=== PATIENT | female | born 1955 | race Caucasian/White ===

== ENCOUNTER 2020-07-26 12:53 | Outpatient (AMB) | payer MEDICARE, OTHER, SELFPAY ==
--- NOTE | 2020-07-26 12:58 | AM.OFFVISMDC ---
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 Plumbing Installer Required: No Accompanied by: Self / Same As Patient Allergies bupropion [From Wellbutrin] Allergy (Mild, Verified 03/05/23 15:01) Stomach Upset peanut Allergy (Mild, Verified 03/05/23 15:01) Nasal congestion Sulfa (Sulfonamide Antibiotics) [SULFA(SULFONAMIDE ANTIBIOTICS)] Allergy (Unknown, Verified 03/05/23 15:01) PETICHIA, petecchiae Dairy Allergy (Mild, Uncoded 03/05/23 15:) Abdominal Pain mushroom , wine Allergy (Unknown, Uncoded 03/05/23 15:) Unknown Medication List - Last Reconciled 07/26/20 by Nehemias Gonzáles MD [id number] 50-325-40 mg 1 tab PO Q4-6H 30 days PRN citalopram 10 mg PO DAILY fluticasone propionate 50 mcg/actuation 1 spray intranasal DAILY levothyroxine 50 mcg PO DAILY 90 days lisinopril 10 mg PO DAILY loratadine (Claritin) 10 mg PO DAILY omeprazole 20 mg PO DAILY 90 days simvastatin 5 mg PO BEDTIME HPI AWV G0438 05/23/2020 HPI Details Patient comes in today for her Medicare Annual Wellness Exam IPPE/AWV: c/o of Annual Wellness Visit, initial visit. Medical / Social History Reviewed Past Medical History Yes . [place] of Care / Care Team list updated Yes . Surgical/Hospitalization History Yes . Current Medications (including OTC and supplements) Yes . Family History Yes . Tobacco Control form Yes . AUDIT-C (Alcohol use) form Yes . Illicit drug use in Social History Yes . Current diagnosis of depression? No Appropriate PHQ2/PHQ9 completed Yes . Data entered by Biology Professor and reviewed by provider Home Safety Throw rugs? No Grab bars? No Raised toilet seats? No Working smoke detectors? Yes Working carbon monoxide detectors? Yes Data entered by Biology Professor and reviewed by provider Activities of Daily Living (ADLs) Difficulty bathing or showering? No Difficulty dressing? No Difficulty using the toilet? No Difficulty getting in and out of bed? No Difficulty walking? No Receives help from another person with any of the above tasks? No Instrumental Activities of Daily Living (IADLs) Uses the telephone without help Gets to places out of walking distance without help Goes shopping for groceries without help Prepares own meals without help Does own minor home maintenance without help Does own laundry without help Does own housework without help Manages own money without help Currently takes medications? Yes Takes medication without help End-of-Life Planning Discussed advance directive Yes Advance directive on file Discussed wishes expressed in advance directive agreed to following patient's wishes Fall Risk: Fall History Have you had any falls with injury in the past year? No . Have you had two or more falls in the past year? No . Fall Risk Assessment: No falls in the past year . HRA filled out by the patient, reviewed by Provider and scanned. [facility] Medical History Basal cell carcinoma of left side of nose Headache Obesity (BMI 30-39.9) Depression Anxiety GERD without esophagitis Allergic rhinitis Impaired fasting glucose Migraine Acquired hypothyroidism Benign essential hypertension Pure hypercholesterolemia Surgical History History of surgery History of eye surgery Hx of mastoidectomy History of cataract surgery History of carpal tunnel release History of open reduction and internal fixation (ORIF) procedure Family History Father CVD (cardiovascular disease) Mother Esophageal cancer Daughter In good health Social History Housing: House Alcohol intake: never Patient Tobacco Use Status: Former Tobacco user Second Hand Smoke Exposure: Yes service: No Current occupational status: retired Cognitive needs: No Hearing needs: Yes Vision needs: Yes Questionnaire PHQ-9 Over the last 2 weeks, how often have you been bothered by any of the following problems? 1. Little interest or pleasure in doing things: not at all 2. Feeling down, depressed, or hopeless: several days 3. Trouble falling or staying asleep, or sleeping too much: more than half the days 4. Feeling tired or having little energy: more than half the days 5. Poor appetite or overeating: not at all 6. Feeling bad about yourself - or that you are a failure or have let yourself or your family down: several days 7. Trouble concentrating on things, such as reading the newspaper or watching television: not at all 8. Moving or speaking so slowly that other people could have noticed. Or the opposite - being so fidgety or restless that you have been moving around a lot more than usual: several days 9. Thoughts that you would be better off or of hurting yourself in some way: not at all Total score: 7 10. If you checked off any problems, how difficult have those problems made it for you to do your work, take care of things at home, or get along with other people?: not difficult at all 0-4 None-Minimal, 5-9 Mild, 10-14 Moderate, 15-19 Moderately Severe, 20-27 Severe Source: Developed by Drs. Iban Cui, Tere Dorsey, Monster Morrison and colleagues, with an educational bud from [employer]. Medicare Wellness Checkup [age] 65-69 What gender do you identify with?: female During the past 4 weeks, how much have you been bothered by emotional problems such as feeling anxious, depressed, irritable, sad or downhearted, and blue?: moderately During the past 4 weeks, has your physical & emotional health limited your social activities with family, friends, neighbors, or groups?: not at all During the past 4 weeks, how much bodily pain have you generally had?: mild pain During the past 4 weeks, was someone available to help you if you needed & wanted help?: yes, as much as I wanted During the past 4 weeks, what was the hardest physical activity you could do for at least 2 minutes?: heavy Can you get to places out of walking distance without help? (For eg., can you travel alone on buses, taxis or drive your car?): Yes Can you go shopping for groceries or clothes without someone's help?: Yes Can you prepare your own meals?: Yes Can you do your housework without help?: Yes Because of any health problems, do you need the help of another person with your personal care needs such as eating, bathing, dressing or getting around the house?: No Can you handle your own money without help?: Yes During the past 4 weeks, how would you rate your health in general?: fair During the past 4 weeks how have things been going for you?: pretty bad (because of her current headaches) Are you having difficulties driving your car?: no Do you always fasten your seat belt when you are in a car?: yes, usually During past 4 weeks, have you been bothered by the following: never: Falling or dizzy when standing up, Sexual problems?, Trouble eating well? and Problems using the telephone?, sometimes: Teeth or denture problems? and often: Tiredness or fatigue? Have you fallen 2 or more times in the past year?: No Are you afraid of falling?: Yes Are you a smoker?: no During the past 4 weeks, how many drinks of wine, beer, or other alcoholic beverages did you have?: no alcohol at all Do you exercise for about 20 minutes 3 or more times a week?: yes, most of the time Have you been given information to help with the following?: no: Hazards in your house that might hurt you? and no: Keeping track of your medications? How often do you have trouble taking medicines the way you have been told to take them?: I always take medicine as prescribed How confident are you that you can control & manage most of your health problems?: somewhat confident What is your race?: White Mini Mental State Exam (MMSE) Orientation What is the (year) (season) (date) (day) (month)?: year, season, date, day and month Where are we (state) (county) (town or city) (hospital) (floor)?: state, county, town or city, hospital/clinic and floor Registration Name of 3 unrelated objects clearly and slowly, then ask patient to repeat all 3 of them. (1st repeat determines score. Make sure they can repeat all three): object 1, object 2 and object 3 Attention & Calculation (CHOOSE ONE) Ask pt to begin with 100 & count backward by 7. Stop after 5 repeats. If pt cannot ask them to spell the word WORLD backward.: 93, 86, 79, 72 and 65 Recall Ask patient to repeat the 3 items from question #3.: object 1, object 2 and object 3 Language Show patient a wristwatch & ask what it is. Repeat for pencil.: watch and pencil Ask the patient to repeat the phrase 'No ifs, ands, or buts' after you.: correct Ask the patient to 'take a piece of paper with their right hand' 'fold paper in half' 'place paper on floor': take paper in right hand, fold paper in half and place paper on floor Print the sentence 'CLOSE YOUR EYES' on a piece. If patient actually closes eyes then score.: followed written direction Give patient a blank piece of paper & ask to write a sentence. Score if it contains a noun & verb.: sentence contains subject and verb Ask patient to copy figure of intersecting pentagons exactly. Score if all 10 angles & 2 intersects are included.: all 10 angles present & 2 are intersected Score Score: 30 Activity of Daily Living Bathing - sponge bath, tub bath or shower: receives no assistance (gets in/out by self, if usual bathing means Dressing - getting clothes from closets & drawers, including inner/outer garments & fasteners.: gets clothes & gets completely dressed without help Toileting - going to the 'toilet room' for urine/bowel elimination & cleaning self/arranging clothes: goes to toilet room, cleans self, arranges clothes without help Transfer: moves in & out of bed and chair without help (may use support object) Continence: controls urination/bowel movements completely by self Feeding: feeds self without help Total Score: 0 Information obtained from: patient Using telephone: independent Traveling: independent Shopping: independent Preparing meals: independent Housework: independent Taking medicine: independent Managing money: independent AUDIT C Alcohol Use Questionnaire (AUDIT-C) 1. How often do you have a drink containing alcohol?: Never 3. How often do you have six or more drinks on one occasion?: Never Total Score: 0 Score Reviewed/Action Taken: Yes Thrive Questionnaire Thrive Questionnaire I am a:: Patient What is your living situation today?: I have a steady place to live Within the past 12 months, the food you bought just didn't last and you didn't have the money to get more.: Never true Within the past 12 months, you worried whether your food would run out before you got money to buy more.: Never true Do you have trouble paying for medicines?: No Do you have trouble getting transportation to medical appointments?: No Do you have trouble paying your heating and electricity bill?: No Do you have trouble taking care of your child, family member or friend?: No Do you have trouble with day-to-day activities such as bathing, preparing meals, shopping, managing finances, etc.?: No Are you currently unemployed and looking for a job?: No Are you interested in more education?: No Review of Systems Const Denies chills, Reports fatigue, Denies fever(s) and Reports headache(s) (occuring daily lately) ENT Denies dysphagia, Denies dizziness, Denies otalgia, Reports headache(s) (occuring daily lately), Denies odynophagia and Denies sore throat Card Denies chest pain, Denies palpitations and Denies dyspnea Resp Denies cough and Denies dyspnea GI Denies abdominal pain, Denies constipation, Denies dysphagia, Denies heartburn, Denies diarrhea, Denies nausea, Denies odynophagia and Denies vomiting Denies difficulty voiding, Denies nocturia and Denies dysuria Neuro Denies dizziness and Reports headache(s) (occuring daily lately) Endo Reports fatigue and Denies palpitations Physical Exam Vital Signs: Last Vital Signs Temp 97.2 F 07/26/20 12:59 Pulse 70 07/26/20 12:59 BP 140/80 H 07/26/20 12:59 Pulse Ox 98 07/26/20 12:59 Oxygen Delivery Method Room Air 07/26/20 12:59 BMI result Body Mass Index 35.2 IPPE/AWV: Balance Romberg Yes . Tandem walk Yes . Walk and Turn Yes . Rise from sit to stand Yes . Vision Corrective lens No Vision screen pass Hearing Whisper test pass . Urinary incont. no. EKG Not clinically necessary. Assessment & Plan Assessment & Plan (1) Encounter for Medicare annual wellness exam: Code(s): Z00.00 - Encounter for general adult medical examination without abnormal findings Patient Instructions: HRA form completed and discussed with patient; form will be scanned into patient's chart (2) Headache: Code(s): R51.9 - Headache, unspecified Qualifiers: Headache type: new daily persistent Qualified Code(s): G44.52 - New daily persistent headache (NDPH) Plan - Nehemias Gonzáles MD: Likely migraine headaches Will refer to neurology for further evaluation and management Orders: Referrals Neurology Referral Patient Instructions: Follow up as scheduled in October 2020 Quality Reporting (2019) Depression/Bipolar (159/160/161/177) PHQ-9: Total score: 7 Coding Level of Care Code Medicare First (G0438) Est Pt Level 3 (98091) Diagnoses Encounter for Medicare annual wellness exam Z00.00 New daily persistent headache G44.52 Headache type: new daily persistent
[2020-07-26 12:59] VITALS: BP 140/80; PULSE 70; TEMP 36.2; O2SAT 98; BMI 35.2
== END 2020-07-26 14:37 | disposition home or self-care (01) ==
LOC: HO.HMGH 12:53
PROVIDERS: PCP Internal Medicine; Visit Provider Internal Medicine
DX: Z00.00 Encounter for general adult medical examination without abnormal findings (principal); G44.52 New daily persistent headache (NDPH)
CPT/HCPCS: G0438

== ENCOUNTER 2020-08-31 14:50 | Outpatient (REF) | payer MEDICARE, OTHER, SELFPAY ==
[2020-08-31 16:04] LABS: Erythrocyte Sedimentation Rate 14 MM/HR (0-20)
[2020-08-31 16:06] LABS: Syphilis Screen Nonreactive (Nonreactive)
[2020-09-01 05:17] LABS: Lyme Abs Screen <0.90 index
[2020-09-01 13:46] LABS: Anti Nuclear Antibody Screen NEGATIVE (NEGATIVE)
== END 2020-08-31 14:51 | disposition home or self-care (01) ==
LOC: HO.LAB 14:50
PROVIDERS: PCP Internal Medicine; Visit Provider Psychiatry & Neurology Neurology
DX: G44.229 Chronic tension-type headache, not intractable (principal)
CPT/HCPCS: 36415; 85652; 86038; 86039; 86617; 86618; 86780

== ENCOUNTER 2020-11-30 07:18 | Outpatient (REF) | payer MEDICARE, OTHER, SELFPAY ==
--- NOTE | ~2020-11-30 | MR_ITS ---
MRI OF THE BRAIN WITHOUT IV CONTRAST INDICATION: Chronic tension-type headache. COMPARISON: None available. TECHNIQUE: Multiplanar multisequence MR imaging of the brain was obtained without IV contrast. FINDINGS: There is no hydrocephalus, extra-axial surface collection, or herniation. Mild chronic microangiopathy. The major flow voids at the skull base are preserved. There is no acute infarct on diffusion-weighted imaging. There is no intracranial hemorrhage on the gradient recalled echo acquisition. The midline structures are normal. The cerebellar tonsils are normally positioned. The cerebellum and brainstem are normal. The craniocervical junction is normal. Osseous marrow signal intensity is homogenous. The visualized soft tissues are unremarkable. There is a 2.6 cm retention cyst within the left maxillary sinus. Moderate to large left mastoid effusion. Small right mastoid effusion. MR/MR head/brain wo con IMPRESSION: - No acute intracranial findings. - Mild chronic microangiopathy. - There is a 2.6 cm retention cyst within the left maxillary sinus. Small fluid level within the left sphenoid sinus. - Moderate to large left mastoid effusion. Small right mastoid effusion.
== END 2020-11-30 07:19 | disposition home or self-care (01) ==
LOC: HO.MRI 07:18
PROVIDERS: PCP Internal Medicine; Visit Provider Psychiatry & Neurology Neurology
DX: G44.229 Chronic tension-type headache, not intractable (principal)
CPT/HCPCS: 70551

== ENCOUNTER 2021-04-18 10:39 | Outpatient (REF) | payer MEDICARE, OTHER, SELFPAY ==
[2021-04-18 11:02] LABS: MANUAL DIFF FLAG NO
[2021-04-18 11:29] LABS: Appearance Urine CLEAR; Color Urine YELLOW; Glucose Urine UA NEG (NEG); Leukocyte Esterase Urine NEG (NEG); Nitrite Urine NEG (NEG); Specific Gravity - Urine >= 1.030 (1.005-1.025); Urine Blood NEG (NEG); Urine Ketones NEG (NEG); Urine Protein NEG (NEG-TRACE)
[2021-04-18 11:33] LABS: Basophils Percent Auto 0.4 % (0-2); Eosinophils Absolute Auto 0.2 X10*3/uL (0.0-0.4); Eosinophils Percent Auto 2.5 % (0-4); Hematocrit 44.7 % (37.0-47.0); Hemoglobin 14.1 g/dl (12.0-16.0); Imm Gran Abs Auto 0.02 X10*3/uL (0.00-0.03); Imm Gran Pct Auto 0.3 % (0.0-0.4); Lymphocytes Absolute Auto 2.1 X10*3/uL (1.2-4.9); Lymphocytes Percent Auto 31.9 % (20-40); Mean Corpuscular HGB Conc 31.5 g/dl (31.0-35.0); Mean Corpuscular Volume 91.8 fL (80.0-98.0); Mean Platelet Volume 12.2 fL (9.4-12.3); Monocytes Absolute Auto 0.5 X10*3/uL (0.1-1.2); Monocytes Percent Auto 6.7 % (2-11); Neutrophils Absolute Auto 3.9 x10*3/uL (2.0-8.3); Neutrophils Percent Auto 58.2 % (45-73); Platelet Count 245 X10*3/uL (160-400); Red Blood Count 4.87 X10*6/uL (4.20-5.50); Red Cell Distribution Width 13.2 % (11.0-16.0); White Blood Count 6.7 X10*3/uL (4.8-10.8)
[2021-04-18 12:07] LABS: Alanine Aminotransferase 28 U/L (0-31); Albumin Level 4.3 g/dL (3.5-5.0); Alkaline Phosphatase 71 U/L (39-117); Anion Gap 11 (12-20); Aspartate Amino Transferase 27 U/L (5-31); Bilirubin Total 0.7 mg/dL (0.0-1.0); Blood Urea Nitrogen 18 mg/dL (9-16); Calcium 9.6 mg/dL (8.4-10.2); Carbon Dioxide 26 mmol/L (22-29); Chloride 109 mmol/L (96-108); Cholesterol 214 mg/dL; Estimated Glomerular Filt Rate 57; Glucose Fasting 99 mg/dL (60-99); HDL Cholesterol 52 mg/dL; LDL Cholesterol Calculated 136 mg/dl; Potassium 4.4 mmol/L (3.3-5.1); Sodium 142 mmol/L (135-145); Total Protein 7.5 g/dL (6.5-8.0); Triglycerides 134 mg/dL
[2021-04-18 12:28] LABS: Free T4 (Free Thyroxine) 0.93 ng/dL (0.71-1.85); Thyroid Stimulating Hormone 2.87 uIU/mL (0.32-4.0); Vitamin D 25-OH Total 26.9 ng/mL (>30)
== END 2021-04-18 10:40 | disposition home or self-care (01) ==
LOC: HO.LAB 10:39
PROVIDERS: PCP Internal Medicine; Visit Provider Internal Medicine
DX: I10 Essential (primary) hypertension (principal); E78.00 Pure hypercholesterolemia, unspecified; E03.9 Hypothyroidism, unspecified; E55.9 Vitamin D deficiency, unspecified
CPT/HCPCS: 36415; 80053; 80061; 81003; 82306; 84439; 84443; 85025

== ENCOUNTER 2021-07-10 07:25 | Outpatient (REF) | payer MEDICARE, OTHER, SELFPAY ==
--- NOTE | ~2021-07-10 | CT_ITS ---
EXAMINATION: CT SINUS WITHOUT CONTRAST CLINICAL INFORMATION: Nasal polyps, deviated septum. COMPARISON: MRI brain 11/30/2020 TECHNIQUE: Axial 2 mm thin and reformatted 2 mm thin sagittal and coronal images of sinuses were obtained without contrast. This CT examination was performed using dose optimization techniques as appropriate, variously including the following: *Automated exposure control *Adjustment of mA and/or kV according to patient size (this includes techniques or standardized protocols for targeted exams where dose is matched to indication/reason for exam; i.e. extremities or head) *Use of iterative reconstruction technique DLP: 88 mGy-cm FINDINGS: FRONTAL SINUSES AND DRAINAGE PATHWAYS: There is mild mucoperiosteal thickening of bilateral frontal sinuses. The right frontal sinus and the drainage pathway are widely patent. MAXILLARY SINUSES AND DRAINAGE PATHWAYS: There is a moderate sized polyp or retention cyst on the floor of the left maxillary sinus. The right sinus is well expanded and clear. There is mild mucoperiosteal thickening of the left ostiomeatal complex but patent. The right ostiomeatal complex is patent, as well. ETHMOID SINUSES: Normal. The ethmoid roofs are symmetric, with olfactory fossa depth of 0.5 on the right and 0.6 on the left. SPHENOID SINUSES AND DRAINAGE PATHWAYS: Normal. The sphenoid ostia are patent. The carotid canals are covered by bone. NASAL CAVITY/NASOPHARYNX: The nasal cavity is clear. There is no nasal septal deviation/spurring. The nasopharynx is symmetric. ADDITIONAL RELEVANT FINDINGS: No periapical disease is seen. The TMJs articulate normally. The orbits and skull base soft tissues are unremarkable. There are postsurgical changes left middle ear with absent scutum and tympanic membrane. There is a soft tissue density in the left middle ear, likely cholesteatoma. The middle ear ossicles are absent. There is near-complete opacification of bilateral mastoid sinuses. Partial resection of the left mastoid sinus is noted. Limited evaluation demonstrates no acute intracranial findings. CT/CT sinus wo con IMPRESSION: Moderate-sized polyp left maxillary sinus. Mild chronic mucoperiosteal thickening bilateral frontal sinuses. Partial left mastoidectomy with resection of scutum, the tympanic membrane and middle ear ossicles. There is soft tissue density in the left middle ear, likely cholesteatoma, question recurrent. There is bilateral mastoiditis.
== END 2021-07-10 07:26 | disposition home or self-care (01) ==
LOC: HO.CT 07:25
PROVIDERS: Visit Provider Otolaryngology
DX: J34.2 Deviated nasal septum (principal); J33.9 Nasal polyp, unspecified
CPT/HCPCS: 70486

== ENCOUNTER 2021-12-27 09:08 | Outpatient (REF) | payer MEDICARE, OTHER, SELFPAY ==
[2021-12-27 09:23] LABS: MANUAL DIFF FLAG NO
[2021-12-27 09:34] LABS: Basophils Percent Auto 0.4 % (0-2); Eosinophils Absolute Auto 0.1 X10*3/uL (0.0-0.4); Hematocrit 44.2 % (37.0-47.0); Hemoglobin 14.3 g/dl (12.0-16.0); Imm Gran Abs Auto 0.02 X10*3/uL (0.00-0.03); Imm Gran Pct Auto 0.3 % (0.0-0.4); Lymphocytes Absolute Auto 2.4 X10*3/uL (1.2-4.9); Lymphocytes Percent Auto 34.3 % (20-40); Mean Corpuscular HGB Conc 32.4 g/dl (31.0-35.0); Mean Corpuscular Hemoglobin 29.5 pg (27.0-33.0); Mean Corpuscular Volume 91.3 fL (80.0-98.0); Mean Platelet Volume 11.6 fL (9.4-12.3); Monocytes Absolute Auto 0.4 X10*3/uL (0.1-1.2); Monocytes Percent Auto 5.5 % (2-11); Neutrophils Absolute Auto 3.9 x10*3/uL (2.0-8.3); Neutrophils Percent Auto 57.5 % (45-73); Platelet Count 227 X10*3/uL (160-400); Red Blood Count 4.84 X10*6/uL (4.20-5.50); Red Cell Distribution Width 13.2 % (11.0-16.0); White Blood Count 6.9 X10*3/uL (4.8-10.8)
[2021-12-27 09:42] LABS: Estimated Average Glucose 105 mg/dL; Hemoglobin A1c % 5.3 %
[2021-12-27 09:49] LABS: Appearance Urine Clear; Color Urine Yellow; Glucose Urine UA Negative (Negative); Leukocyte Esterase Urine Moderate (2+) (Negative); Nitrite Urine Negative (Negative); PH 7.5 (5.0-9.0); Urine Blood Negative (Negative); Urine Ketones Negative (Negative); Urine Protein Negative (Neg-Trace)
[2021-12-27 10:12] LABS: Alanine Aminotransferase 22 U/L (0-31); Albumin Level 4.3 g/dL (3.5-5.0); Alkaline Phosphatase 57 U/L (39-117); Anion Gap 14 (12-20); Aspartate Amino Transferase 24 U/L (5-31); Bilirubin Total 0.7 mg/dL (0.0-1.0); Blood Urea Nitrogen 19 mg/dL (9-16); Calcium 9.2 mg/dL (8.4-10.2); Carbon Dioxide 24 mmol/L (22-29); Chloride 107 mmol/L (96-108); Cholesterol 198 mg/dL; Estimated Glomerular Filt Rate 53; Glucose Fasting 109 mg/dL (60-99); HDL Cholesterol 49 mg/dL; LDL Cholesterol Calculated 115 mg/dl; Potassium 4.4 mmol/L (3.3-5.1); Sodium 141 mmol/L (135-145); Total Protein 7.5 g/dL (6.5-8.0); Triglycerides 170 mg/dL
[2021-12-27 10:22] LABS: Free T4 (Free Thyroxine) 1.05 ng/dL (0.71-1.85); Thyroid Stimulating Hormone 5.59 uIU/mL (0.32-4.0); Vitamin D 25-OH Total 32.9 ng/mL (>30)
[2021-12-27 11:54] LABS: Bacteria Urine None Seen (None Seen); Hyaline Casts Urine 0-2 /LPF (0-2); RBC Urine 0-2 /HPF (0-2); Squamous Epithelial Cell Urine 0-2 /HPF (0-2)
== END 2021-12-27 09:09 | disposition home or self-care (01) ==
LOC: HO.LAB 09:08
PROVIDERS: PCP Internal Medicine; Visit Provider Internal Medicine
DX: R73.01 Impaired fasting glucose (principal); E03.9 Hypothyroidism, unspecified; E78.00 Pure hypercholesterolemia, unspecified; E55.9 Vitamin D deficiency, unspecified; I10 Essential (primary) hypertension
CPT/HCPCS: 36415; 80053; 80061; 81001; 82306; 83036; 84439; 84443; 85025

== ENCOUNTER 2022-06-04 08:45 | Outpatient (REF) | payer MEDICARE, OTHER, SELFPAY ==
[2022-06-04 09:12] LABS: MANUAL DIFF FLAG NO
[2022-06-04 09:29] LABS: Basophils Percent Auto 0.5 % (0-2); Eosinophils Absolute Auto 0.2 X10*3/uL (0.0-0.4); Eosinophils Percent Auto 2.9 % (0-4); Hematocrit 45.3 % (37.0-47.0); Hemoglobin 14.5 g/dl (12.0-16.0); Imm Gran Abs Auto 0.02 X10*3/uL (0.00-0.03); Imm Gran Pct Auto 0.3 % (0.0-0.4); Lymphocytes Absolute Auto 2.2 X10*3/uL (1.2-4.9); Lymphocytes Percent Auto 33.6 % (20-40); Mean Corpuscular Hemoglobin 29.1 pg (27.0-33.0); Mean Platelet Volume 12.3 fL (9.4-12.3); Monocytes Absolute Auto 0.4 X10*3/uL (0.1-1.2); Monocytes Percent Auto 5.9 % (2-11); Neutrophils Absolute Auto 3.8 x10*3/uL (2.0-8.3); Neutrophils Percent Auto 56.8 % (45-73); Platelet Count 219 X10*3/uL (160-400); Red Blood Count 4.98 X10*6/uL (4.20-5.50); Red Cell Distribution Width 13.3 % (11.0-16.0); White Blood Count 6.6 X10*3/uL (4.8-10.8)
[2022-06-04 09:34] LABS: Appearance Urine Clear; Color Urine Yellow; Glucose Urine UA Negative (Negative); Leukocyte Esterase Urine Trace (Negative); Nitrite Urine Negative (Negative); Specific Gravity - Urine 1.015 (1.005-1.025); UMIC TRIGGER UACC YES; Urine Blood Negative (Negative); Urine Ketones Negative (Negative); Urine Protein Negative (Neg-Trace)
[2022-06-04 09:37] LABS: Bacteria Urine None Seen (None Seen); Hyaline Casts Urine 0-2 /LPF (0-2); RBC Urine 0-2 /HPF (0-2); Squamous Epithelial Cell Urine 0-2 /HPF (0-2); WBC Urine 0-5 /HPF (0-5)
[2022-06-04 10:13] LABS: Alanine Aminotransferase 20 U/L (0-31); Albumin Level 4.4 g/dL (3.5-5.0); Alkaline Phosphatase 62 U/L (39-117); Anion Gap 15 (12-20); Aspartate Amino Transferase 20 U/L (5-31); Blood Urea Nitrogen 19 mg/dL (9-16); Calcium 9.5 mg/dL (8.4-10.2); Carbon Dioxide 24 mmol/L (22-29); Chloride 107 mmol/L (96-108); Cholesterol 215 mg/dL; Estimated Glomerular Filt Rate 54; Glucose Fasting 106 mg/dL (60-99); HDL Cholesterol 60 mg/dL; LDL Cholesterol Calculated 129 mg/dl; Potassium 4.2 mmol/L (3.3-5.1); Sodium 142 mmol/L (135-145); Total Protein 7.3 g/dL (6.5-8.0); Triglycerides 133 mg/dL
[2022-06-04 10:21] LABS: Free T4 (Free Thyroxine) 0.91 ng/dL (0.71-1.85); Thyroid Stimulating Hormone 3.42 uIU/mL (0.32-4.0); Vitamin D 25-OH Total 28.6 ng/mL (>30)
== END 2022-06-04 08:46 | disposition home or self-care (01) ==
LOC: HO.LAB 08:45
PROVIDERS: PCP Internal Medicine; Visit Provider Internal Medicine
DX: I10 Essential (primary) hypertension (principal); E78.00 Pure hypercholesterolemia, unspecified; E55.9 Vitamin D deficiency, unspecified; E03.9 Hypothyroidism, unspecified
CPT/HCPCS: 36415; 80053; 80061; 81001; 82306; 84439; 84443; 85025

== ENCOUNTER 2022-10-24 08:14 | Outpatient (REF) | payer MEDICARE, OTHER, SELFPAY | END 2022-10-24 08:15 | disposition home or self-care (01) | LOC: HO.LAB 08:14 | PROVIDERS: PCP Internal Medicine; Visit Provider Nurse Practitioner Family | DX: E03.9 Hypothyroidism, unspecified (principal); E78.00 Pure hypercholesterolemia, unspecified; I10 Essential (primary) hypertension; R20.2 Paresthesia of skin; E55.9 Vitamin D deficiency, unspecified | CPT/HCPCS: 36415; 80053; 80061; 82306; 82607; 82746; 83735; 84443 ==

== ENCOUNTER 2022-10-24 15:49 | Outpatient (REF) | payer MEDICARE, OTHER, SELFPAY ==
[2022-10-24 18:41] LABS: Magnesium 2.2 mg/dL (1.6-2.6)
[2022-10-24 19:13] LABS: Folate 18.9 ng/mL (> or = 4.0); Vitamin B12 508 pg/mL (200-900)
== END 2022-10-24 15:50 | disposition home or self-care (01) ==
LOC: HO.LAB 15:49
PROVIDERS: Visit Provider Nurse Practitioner Family
DX: Z13.89 Encounter for screening for other disorder (principal)
CPT/HCPCS: 36415; 82607; 82746; 83735

== ENCOUNTER 2023-03-05 09:28 | Outpatient (REF) | payer MEDICARE, OTHER, SELFPAY ==
[2023-03-05 09:46] LABS: MANUAL DIFF FLAG NO
[2023-03-05 10:17] LABS: Basophils Percent Auto 0.6 % (0-2); Eosinophils Absolute Auto 0.1 X10*3/uL (0.0-0.4); Eosinophils Percent Auto 1.8 % (0-4); Hematocrit 43.5 % (37.0-47.0); Hemoglobin 14.3 g/dl (12.0-16.0); Imm Gran Abs Auto 0.03 X10*3/uL (0.00-0.03); Imm Gran Pct Auto 0.5 % (0.0-0.4); Lymphocytes Absolute Auto 1.9 X10*3/uL (1.2-4.9); Lymphocytes Percent Auto 28.5 % (20-40); Mean Corpuscular HGB Conc 32.9 g/dl (31.0-35.0); Mean Corpuscular Hemoglobin 29.1 pg (27.0-33.0); Mean Corpuscular Volume 88.6 fL (80.0-98.0); Mean Platelet Volume 12.5 fL (9.4-12.3); Monocytes Absolute Auto 0.4 X10*3/uL (0.1-1.2); Monocytes Percent Auto 6.2 % (2-11); Neutrophils Absolute Auto 4.1 x10*3/uL (2.0-8.3); Neutrophils Percent Auto 62.4 % (45-73); Platelet Count 206 X10*3/uL (160-400); Red Blood Count 4.91 X10*6/uL (4.20-5.50); Red Cell Distribution Width 13.7 % (11.0-16.0); White Blood Count 6.5 X10*3/uL (4.8-10.8)
[2023-03-05 10:51] LABS: Appearance Urine Clear; Color Urine Dark Yellow; Glucose Urine UA Negative (Negative); Leukocyte Esterase Urine Trace (Negative); Nitrite Urine Negative (Negative); PH >= 9.0 (5.0-9.0); Specific Gravity - Urine 1.025 (1.005-1.025); UMIC TRIGGER UACC YES; Urine Blood Negative (Negative); Urine Ketones Negative (Negative); Urine Protein 30 (1+) mg/dL (Neg-Trace)
[2023-03-05 10:54] LABS: Bacteria Urine None Seen (None Seen); Hyaline Casts Urine 0-2 /LPF (0-2); RBC Urine 0-2 /HPF (0-2); Squamous Epithelial Cell Urine 0-2 /HPF (0-2); WBC Urine 0-5 /HPF (0-5)
[2023-03-05 11:03] LABS: Alanine Aminotransferase 13 U/L (0-31); Albumin Level 4.3 g/dL (3.5-5.0); Alkaline Phosphatase 52 U/L (39-117); Anion Gap 11 (12-20); Aspartate Amino Transferase 19 U/L (5-31); Bilirubin Total 0.6 mg/dL (0.0-1.0); Blood Urea Nitrogen 15 mg/dL (9-16); Calcium 9.1 mg/dL (8.4-10.2); Carbon Dioxide 27 mmol/L (22-29); Chloride 107 mmol/L (96-108); Cholesterol 195 mg/dL (<200); Estimated Glomerular Filt Rate 56; Glucose Fasting 99 mg/dL (60-99); HDL Cholesterol 59 mg/dL (>40); LDL Cholesterol Calculated 121 mg/dL (<100); Potassium 3.9 mmol/L (3.3-5.1); Sodium 141 mmol/L (135-145); Total Protein 7.5 g/dL (6.5-8.0); Triglycerides 77 mg/dL (<150)
[2023-03-05 11:20] LABS: Free T4 (Free Thyroxine) 0.89 ng/dL (0.71-1.85); Thyroid Stimulating Hormone 3.14 uIU/mL (0.32-4.0); Vitamin D 25-OH Total 43.3 ng/mL (>30)
== END 2023-03-05 09:29 | disposition home or self-care (01) ==
LOC: HO.LAB 09:28
PROVIDERS: PCP Internal Medicine; Visit Provider Internal Medicine
DX: E03.9 Hypothyroidism, unspecified (principal); I10 Essential (primary) hypertension; E78.00 Pure hypercholesterolemia, unspecified; E55.9 Vitamin D deficiency, unspecified
CPT/HCPCS: 36415; 80053; 80061; 81001; 82306; 84439; 84443; 85025

== ENCOUNTER 2023-03-05 14:20 | Outpatient (AMB) | payer MEDICARE, OTHER, SELFPAY ==
[2023-03-05 14:27] VITALS: BP 116/82; PULSE 72; O2SAT 97; BMI 31.6
--- NOTE | 2023-03-05 14:27 | A.OFFPC_ITS ---
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 Accompanied by: Self / Same As Patient Allergies bupropion [From Wellbutrin] Allergy (Mild, Verified 03/05/23 15:01) Stomach Upset peanut Allergy (Mild, Verified 03/05/23 15:01) Nasal congestion Sulfa (Sulfonamide Antibiotics) [SULFA(SULFONAMIDE ANTIBIOTICS)] Allergy (Unknown, Verified 03/05/23 15:01) PETICHIA, petecchiae Dairy Allergy (Mild, Uncoded 03/05/23 15:01) Abdominal Pain mushroom , wine Allergy (Unknown, Uncoded 03/05/23 15:01) Unknown Medication List - Last Reconciled 03/05/23 by Nehemias Gonzáles MD amitriptyline 20 mg PO BEDTIME [id number] [id number] mg 1 tab PO Q4-6H PRN 30 days citalopram 10 mg PO DAILY fluticasone propionate 50 mcg/actuation 1 spray intranasal DAILY levothyroxine 50 mcg PO DAILY lisinopril 10 mg PO DAILY loratadine (Claritin) 10 mg PO DAILY omeprazole 20 mg PO DAILY 90 days simvastatin 5 mg PO BEDTIME topiramate 50 mg PO BEDTIME Tobacco use date assessed: 03/05/23 Fall risk assessment: No Falls in past year Last assessed Fall Risk: 03/05/23 Dental Screening Dental Screen Date: 03/05/23 Did you have a dental visit in the last 12 months?: Yes Did you have a dental problem in the last 6 months where you did not have access to dental care?: No Was dental information given to patient?: Patient has dentist HPI HTN, HLD, thyroid HPI Details Patient comes in today for her follow up visit - was last seen by me over a year ago in December 2021 as she was seen by midlevel a couple of times since States that she currently feels okay She denies any headaches or dizziness Denies any chest pains, no SOB No nausea/vomiting, no abdominal pain No change in bowel habits noted Had her follow up labs done earlier this morning - to discuss her results [facility] Medical History Basal cell carcinoma of left side of nose Headache Obesity (BMI 30-39.9) Depression Anxiety GERD without esophagitis Allergic rhinitis Impaired fasting glucose Migraine Acquired hypothyroidism Benign essential hypertension Pure hypercholesterolemia Surgical History History of surgery History of eye surgery Hx of mastoidectomy History of cataract surgery History of carpal tunnel release History of open reduction and internal fixation (ORIF) procedure Family History Father CVD (cardiovascular disease) Mother Esophageal cancer Daughter In good health Social History Housing: House Alcohol intake: never Patient Tobacco Use Status: Former Tobacco user Second Hand Smoke Exposure: Yes service: No Current occupational status: retired Cognitive needs: No Hearing needs: Yes Vision needs: Yes Questionnaire PHQ-9 Over the last 2 weeks, how often have you been bothered by any of the following problems? 1. Little interest or pleasure in doing things: not at all 2. Feeling down, depressed, or hopeless: not at all 3. Trouble falling or staying asleep, or sleeping too much: not at all 4. Feeling tired or having little energy: not at all 5. Poor appetite or overeating: not at all 6. Feeling bad about yourself - or that you are a failure or have let yourself or your family down: not at all 7. Trouble concentrating on things, such as reading the newspaper or watching television: not at all 8. Moving or speaking so slowly that other people could have noticed. Or the opposite - being so fidgety or restless that you have been moving around a lot more than usual: not at all 9. Thoughts that you would be better off or of hurting yourself in some way: not at all Total score: 0 Depression Screening Interpretation: Negative Depression Screening Done: Yes 43343 - PHQ-9 Billing: Yes Source: Developed by Drs. Iban Cui, Tere Dorsey, Monster Morrison and colleagues, with an educational bud from [employer]. Thrive Questionnaire Date Thrive assessed: 03/05/23 I am a: Patient What is your living situation today?: I have a steady place to live Within the past 12 months, did the food you bought not last and you didn't have the money to get more?: Never true Within the past 12 months, did you worry whether your food would run out before you got money to buy more?: Never true Do you have trouble paying for medicines?: No Do you have trouble getting transportation to medical appointments?: No Do you have trouble paying your heating and electricity bill?: No Do you have trouble taking care of your child, family member or friend?: No Do you have trouble with day-to-day activities such as bathing, preparing meals, shopping, managing finances, etc.?: No Are you currently unemployed and looking for a job?: No Are you interested in more education?: No Please select the resources that you would like help with: None Currently or been in a relationship where the following occur: no concerns reported AUDIT C Alcohol Use Questionnaire (AUDIT-C) 1. How often do you have a drink containing alcohol?: Never 3. How often do you have six or more drinks on one occasion?: Never Total Score: 0 Score Reviewed/Action Taken: Yes MEHRAN-7 AMB Questionnaire MEHRAN-7 Date MEHRAN - 7 assessed: 03/05/23 Feeling nervous, anxious, or on edge: 0 = Not at all Not being able to stop or control worryin = Not at all Worrying too much about different things: 0 = Not at all Trouble relaxin = Not at all Being so restless that it is hard to sit still: 0 = Not at all Becoming easily annoyed or irritable: 0 = Not at all Feeling afraid as if something awful might happen: 0 = Not at all Total MEHRAN-7 score (0-4 normal; 5-9 mild; 10-14 moderate; 15-21 severe): 0 Source: Developed by Drs. Iban Cui, Tere Dorsey, Monster Morrison and colleagues, with an educational bud from [employer]. Review of Systems Const Denies chills, Reports fatigue, Denies fever(s) and Denies headache(s) ENT Denies dysphagia, Denies dizziness, Denies otalgia, Denies headache(s), Denies neck pain, Denies odynophagia, Denies sinus pain and Denies sore throat Card Denies chest pain, Denies palpitations and Denies dyspnea Resp Denies cough and Denies dyspnea GI Denies abdominal pain, Denies constipation, Denies dysphagia, Denies heartburn, Denies diarrhea, Denies nausea, Denies odynophagia and Denies vomiting Denies difficulty voiding, Denies nocturia and Denies dysuria Musc Denies back pain and Denies neck pain Skin/Breast Denies rash Neuro Details: on and off pain and occasional numbness/tingling on her left 2nd and 3rd toes Denies dizziness and Denies headache(s) Endo Reports fatigue and Denies palpitations Physical exam (Primary Care) Vital Signs: Last Vital Signs Pulse 72 03/05/23 14:27 BP 116/82 03/05/23 14:27 Pulse Ox 97 03/05/23 14:27 Oxygen Delivery Method Room Air 03/05/23 14:27 BMI result Body Mass Index 31.6 Tobacco/Smoking Status: Tobacco use Status Tobacco use date assessed 03/05/23 03/05/23 14:33 Patient Tobacco Use Status Former Tobacco user 03/05/23 14:33 PHQ-9: PHQ-9 Score PHQ-9: Total score 0 03/05/23 15:08 Depression Screening Interpretation: Negative Thrive Assessment: Date of Thrive Assessment Date Thrive assessed 03/05/23 03/05/23 14:33 Currently or been in a relationship where the following occur: no concerns reported Const General: no acute distress and alert HENMT Ears: TM's normal bilaterally and EAC's normal Throat: Yes posterior oropharynx normal and Yes tonsils normal (no TP congestion noted) Neck Neck: Yes no lymphadenopathy and Yes supple Resp Auscultation: clear to auscultation bilaterally, no rales and no wheezes Cardio Rate: regular rate Rhythm: regular rhythm Heart sounds: no murmurs GI Palpation (GI): Soft to palpation and nontender Auscultation: normal bowel sounds Skin Rashes: no rashes Extrem General: Yes no clubbing, cyanosis or edema Results Reviewed Results Reviewed: Laboratory Tests 03/05/23 03/05/23 03/05/23 09:43 09:43 09:44 WBC 6.5 Hgb 14.3 Hct 43.5 Plt Count 206 Sodium 141 Potassium 3.9 Creatinine 0.98 Estimated GFR 56 Fasting Glucose 99 Calcium 9.1 AST 19 ALT 13 Triglycerides 77 Cholesterol 195 LDL Cholesterol, Calc 121 H HDL Cholesterol 59 25-OH Vitamin D Total 43.3 TSH 3.14 Free T4 0.89 Ur Specific [place] 1.025 Urine Protein 30 (1+) H Urine Glucose (UA) Urine Blood 03/05/23 09:44 WBC Hgb Hct Plt Count Sodium Potassium Creatinine Estimated GFR Fasting Glucose Calcium AST ALT Triglycerides Cholesterol LDL Cholesterol, Calc HDL Cholesterol 25-OH Vitamin D Total TSH Free T4 Ur Specific [place] Urine Protein Urine Glucose (UA) Negative Urine Blood Negative Assessment and Plan Assessment & Plan (1) Benign essential hypertension: Code(s): I10 - Essential (primary) hypertension Plan: Reinforced low sodium diet - goal is systolic BP of at least 130 to 140 mm or less Continue Lisinopril 10 mg QD (2) Pure hypercholesterolemia: Code(s): E78.00 - Pure hypercholesterolemia, unspecified Plan: Results of her labs done earlier this morning reviewed and discussed with patient - is advised that her cholesterol levels have increased slightly from previous Reinforced low cholesterol diet Continue Simvastatin 5 mg Q HS Will recheck her labs nd fasting lipids in 4 months for follow up (3) Acquired hypothyroidism: Code(s): E03.9 - Hypothyroidism, unspecified Plan: TFTs remained normal on her recent labs Continue Levothyroxine 50 mcg QD Will continue to monitor her TFTs regularly (4) Impaired fasting glucose: Code(s): R73.01 - Impaired fasting glucose Plan: HgbA1c was normal at 5.3%, 5.8% and 5.7% when previously checked; FBS was normal at 99 mg/dl on her labs done earlier today Reinforced low calorie diet/exercise as tolerated (5) Migraine: Code(s): G43.909 - Migraine, unspecified, not intractable, without status migrainosus Qualifiers: Intractability: not intractable Migraine type: unspecified Status migrainosus presence: without status migrainosus Qualified Code(s): G43.909 - Migraine, unspecified, not intractable, without status migrainosus Plan: Diagnosed with migraine by neurology States that her headaches have improved a lot since she was started on prophylactic Tx with Topiramate 50 mg Q HS and Amitriptyline 20 mg Q HS MRI of the brain done last year came out normal although it did show incidentally a left maxillary sinus cyst and patient has been seeing ENT for this (6) Maxillary sinus cyst: Code(s): 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 - Cyst and mucocele of nose and nasal sinus Plan: Follow up with ENT as scheduled Was advised no intervention at this time and recommended just observation for now (7) GERD without esophagitis: Code(s): K21.9 - Gastro-esophageal reflux disease without esophagitis Plan: Dietary restrictions reinforced Continue Omeprazole 20 mg QD PRN (8) Allergic rhinitis: Code(s): J30.9 - Allergic rhinitis, unspecified Qualifiers: Allergic rhinitis seasonality: unspecified Allergic rhinitis trigger: unspecified Qualified Code(s): J30.9 - Allergic rhinitis, unspecified Plan: Continue OTC Loratadine 10 mg QD PRN and Fluticasone nasal spray 50 mcg 1 spray into each nostril QD PRN (9) Anxiety: Code(s): F41.9 - Anxiety disorder, unspecified Plan: States that her Citalopram Rx helps with her anxiety (10) Depression: Code(s): F32.9 - Major depressive disorder, single episode, unspecified Qualifiers: Active/Remission status: currently active Depression Type: major depressive disorder Major depression episode severity: unspecified Major depression recurrence: recurrent Qualified Code(s): F33.9 - Major depressive disorder, recurrent, unspecified Plan: Continue Citalopram 20 mg QD (11) Obesity (BMI 30-39.9): Code(s): E66.9 - Obesity, unspecified Plan: Reinforced diet/exercise as tolerated/lose weight Plan Follow up in 4 months Orders: Orders Comprehensive [place]. Panel Fast 4 Months E78.00 - Pure hypercholesterolemia, unspecified Lipid Panel 4 Months E78.00 - Pure hypercholesterolemia, unspecified Complete Blood Count Auto Diff 4 Months I10 - Essential (primary) hypertension Thyroid Stimulating Hormone 4 Months E03.9 - Hypothyroidism, unspecified Free T4 (Free Thyroxine) 4 Months E03.9 - Hypothyroidism, unspecified Vitamin D 25-OH Total 4 Months E55.9 - Vitamin D deficiency, unspecified UA CC w/rflx Micro + Cult 4 Months R30.0 - Dysuria Coding Level of Care Code Est Pt Level 4 (11336) Diagnoses Benign essential hypertension I10 Pure hypercholesterolemia E78.00 Acquired hypothyroidism E03.9 Impaired fasting glucose R73.01 Migraine without status migrainosus, not intractable, unspecified migraine type G43.909 Intractability: not intractable Migraine type: unspecified Status migrainosus presence: without status migrainosus 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 GERD without esophagitis K21.9 Allergic rhinitis, unspecified seasonality, unspecified trigger J30.9 Allergic rhinitis seasonality: unspecified Allergic rhinitis trigger: unspecified Anxiety F41.9 Episode of recurrent major depressive disorder, unspecified depression episode severity F33.9 Active/Remission status: currently active Depression Type: major depressive disorder Major depression episode severity: unspecified Major depression recurrence: recurrent Obesity (BMI 30-39.9) E66.9
== END 2023-03-05 15:32 | disposition home or self-care (01) ==
PROVIDERS: PCP Internal Medicine; Visit Provider Internal Medicine
DX: I10 Essential (primary) hypertension (principal); E78.00 Pure hypercholesterolemia, unspecified; E03.9 Hypothyroidism, unspecified; F33.9 Major depressive disorder, recurrent, unspecified; R73.01 Impaired fasting glucose; G43.909 Migraine, unspecified, not intractable, without status migrainosus; J34.1 Cyst and mucocele of nose and nasal sinus; K21.9 Gastro-esophageal reflux disease without esophagitis; J30.9 Allergic rhinitis, unspecified; F41.9 Anxiety disorder, unspecified; E66.9 Obesity, unspecified
CPT/HCPCS: 99214

== ENCOUNTER 2023-10-09 15:05 | Outpatient (AMB) | payer MEDICARE, OTHER, SELFPAY ==
[2023-10-09 15:11] VITALS: BP 98/66; PULSE 76; O2SAT 98; BMI 32.8
--- NOTE | 2023-10-09 15:11 | A.OFFPC_ITS ---
Vital Signs 10/09/23 15:11 Height 5 ft 4 in Weight 191 lb 0.2 oz BMI 32.8 BP 98/66 Blood Pressure Location Lt brachial Position Sitting Pulse 76 Pulse Source Pulse Oximeter Pulse Oximetry (%) 98 Oxygen Delivery Method Room Air Intake Visit Reasons: 3 month follow up Software Support Technician Required: No Allergies bupropion [From Wellbutrin] Allergy (Mild, Verified 10/09/23 16:01) Stomach Upset peanut Allergy (Mild, Verified 10/09/23 16:01) Nasal congestion Sulfa (Sulfonamide Antibiotics) [SULFA(SULFONAMIDE ANTIBIOTICS)] Allergy (Unknown, Verified 10/09/23 16:01) PETICHIA, petecchiae Dairy Allergy (Mild, Uncoded 10/09/23 16:01) Abdominal Pain mushroom , wine Allergy (Unknown, Uncoded 10/09/23 16:01) Unknown Medication List - Last Reconciled 10/09/23 by Nehemias Gonzáles MD amitriptyline 20 mg PO BEDTIME ozlankjdge-rqtbxmlibunyy-pydd 50-325-40 mg 1 tab PO Q4-6H PRN 30 days citalopram 10 mg PO DAILY fluticasone propionate 50 mcg/actuation 1 spray intranasal DAILY levothyroxine 50 mcg PO DAILY lisinopril 10 mg PO DAILY loratadine (Claritin) 10 mg PO DAILY omeprazole 20 mg PO DAILY 90 days simvastatin 5 mg PO BEDTIME topiramate 50 mg PO BEDTIME Tobacco use date assessed: 10/09/23 Fall risk assessment: No Falls in past year Last assessed Fall Risk: 10/09/23 Dental Screening Dental Screen Date: 10/09/23 HPI 3 month follow up HPI Details Patient comes in today for her follow up visit States that she has been under a lot of stress lately, with several things going on all at once in the family involving other family members States that she has also been experiencing increasing frequency of her migraine headaches lately and thinks that she has now identified the possible reason for this States that she has been getting a lot of low-cost foods (around $2) lately and thinks that some of the ingredients in these are what is triggering her headaches and she plans to stop getting them from now on She has been taking her Fioricet as needed with adequate relief of her headaches She denies any dizziness Denies any chest pains, no SOB No nausea/vomiting, no abdominal pain No change in bowel habits noted She has not yet gotten her follow up labs done - states that she will try to get them done tomorrow morning if possible [facility] Medical History Basal cell carcinoma of left side of nose Headache Obesity (BMI 30-39.9) Depression Anxiety GERD without esophagitis Allergic rhinitis Impaired fasting glucose Migraine Acquired hypothyroidism Benign essential hypertension Pure hypercholesterolemia Surgical History History of surgery History of eye surgery Hx of mastoidectomy History of cataract surgery History of carpal tunnel release History of open reduction and internal fixation (ORIF) procedure Family History Father CVD (cardiovascular disease) Mother Esophageal cancer Daughter In good health Social History Housing: House Alcohol intake: never Patient Tobacco Use Status: Former Tobacco user Second Hand Smoke Exposure: Yes service: No Current occupational status: retired Cognitive needs: No Hearing needs: Yes Vision needs: Yes Questionnaire PHQ-9 Over the last 2 weeks, how often have you been bothered by any of the following problems? 1. Little interest or pleasure in doing things: not at all 2. Feeling down, depressed, or hopeless: not at all 3. Trouble falling or staying asleep, or sleeping too much: not at all 4. Feeling tired or having little energy: not at all 5. Poor appetite or overeating: not at all 6. Feeling bad about yourself - or that you are a failure or have let yourself or your family down: not at all 7. Trouble concentrating on things, such as reading the newspaper or watching television: not at all 8. Moving or speaking so slowly that other people could have noticed. Or the opposite - being so fidgety or restless that you have been moving around a lot more than usual: not at all 9. Thoughts that you would be better off or of hurting yourself in some way: not at all Total score: 0 Depression Screening Interpretation: Negative Depression Screening Done: Yes 58472 - PHQ-9 Billing: Yes Source: Developed by Drs. Iban Cui, Monster Dimas and colleagues, with an educational bud from [employer]. Thrive Questionnaire Date Thrive assessed: 10/09/23 I am a: Patient What is your living situation today?: I have a steady place to live Within the past 12 months, did the food you bought not last and you didn't have the money to get more?: Never true Within the past 12 months, did you worry whether your food would run out before you got money to buy more?: Never true Do you have trouble paying for medicines?: No Do you have trouble getting transportation to medical appointments?: No Do you have trouble paying your heating and electricity bill?: No Do you have trouble taking care of your child, family member or friend?: No Do you have trouble with day-to-day activities such as bathing, preparing meals, shopping, managing finances, etc.?: No Are you currently unemployed and looking for a job?: No Are you interested in more education?: No Please select the resources that you would like help with: None Currently or been in a relationship where the following occur: no concerns reported THRIVE Score: 0 AUDIT C Alcohol Use Questionnaire (AUDIT-C) 1. How often do you have a drink containing alcohol?: Never 3. How often do you have six or more drinks on one occasion?: Never Total Score: 0 Score Reviewed/Action Taken: Yes MEHRAN-7 AMB Questionnaire MEHRAN-7 Date MEHRAN - 7 assessed: 03/05/23 Source: Developed by Drs. Iban Cui, Monster Dimas and colleagues, with an educational bud from [employer]. Review of Systems Const Denies chills, Reports fatigue, Denies fever(s), Reports headache(s) (recurrent lately) and Reports weight gain ENT Denies dysphagia, Denies dizziness, Denies otalgia, Reports headache(s) (recurrent lately), Denies neck pain, Denies odynophagia, Denies sinus pain and Denies sore throat Card Denies chest pain, Denies palpitations and Denies dyspnea Resp Denies cough and Denies dyspnea GI Denies abdominal pain, Denies constipation, Denies dysphagia, Denies heartburn, Denies diarrhea, Denies nausea, Denies odynophagia and Denies vomiting Denies difficulty voiding, Denies nocturia, Denies dysuria and Denies urinary urgency Musc Denies back pain and Denies neck pain Skin/Breast Denies rash Neuro Details: on and off pain and occasional numbness/tingling on her left 2nd and 3rd toes Denies dizziness and Reports headache(s) (recurrent lately) Psych Reports anxiety (increased lately - see HPI) Endo Reports fatigue and Denies palpitations Physical exam (Primary Care) Vital Signs: Last Vital Signs Pulse 76 10/09/23 15:11 BP 98/66 10/09/23 15:11 Pulse Ox 98 10/09/23 15:11 Oxygen Delivery Method Room Air 10/09/23 15:11 BMI result Body Mass Index 32.8 Tobacco/Smoking Status: Tobacco use Status Tobacco use date assessed 10/09/23 10/09/23 15:11 Patient Tobacco Use Status Former Tobacco user 10/09/23 15:11 Depression Screening Interpretation: Negative Thrive Assessment: Date of Thrive Assessment Date Thrive assessed 03/05/23 10/09/23 15:11 Currently or been in a relationship where the following occur: no concerns repor kiran Const General: no acute distress and alert HENMT Ears: TM's normal bilaterally and EAC's normal Throat: Yes posterior oropharynx normal and Yes tonsils normal (no TP congestion noted) Neck Neck: Yes no lymphadenopathy and Yes supple Thyroid: Thyroid normal Resp Auscultation: clear to auscultation bilaterally, no rales and no wheezes Cardio Rate: regular rate Rhythm: regular rhythm Heart sounds: no murmurs GI Palpation (GI): Soft to palpation and nontender Auscultation: normal bowel sounds General: Yes no CVA tenderness Back/Spine/Pelvis Back: no CVA tenderness Skin Rashes: no rashes Extrem General: Yes no clubbing, cyanosis or edema Assessment and Plan Assessment & Plan (1) Benign essential hypertension: Code(s): I10 - Essential (primary) hypertension Plan: Reinforced low sodium diet - goal is systolic BP of at least 130 to 140 mm or less Continue Lisinopril 10 mg QD (2) Pure hypercholesterolemia: Code(s): E78.00 - Pure hypercholesterolemia, unspecified Plan: She was not able to get her follow up labs done prior to her visit today - states that she will try to get them done tomorrow morning, if possible Reinforced low cholesterol diet Continue Simvastatin 5 mg Q HS Will recheck her labs and fasting lipids in 4 months for follow up (3) Acquired hypothyroidism: Code(s): E03.9 - Hypothyroidism, unspecified Plan: Continue Levothyroxine 50 mcg QD Will continue to monitor her TFTs regularly (4) Impaired fasting glucose: Code(s): R73.01 - Impaired fasting glucose Plan: HgbA1c was normal at 5.3%, 5.8% and 5.7% when previously checked; FBS was normal at 99 mg/dl on her labs from a few months ago Reinforced low calorie diet/exercise as tolerated (5) Migraine: Code(s): G43.909 - Migraine, unspecified, not intractable, without status migrainosus Qualifiers: Migraine type: unspecified Status migrainosus presence: without status migrainosus Intractability: not intractable Qualified Code(s): G43.909 - Migraine, unspecified, not intractable, without status migrainosus Plan: She was diagnosed with migraine by neurology 1 to 2 years ago MRI of the brain done last year came out normal although it did show incidentally a left maxillary sinus cyst and patient has been seeing ENT for this States that her headaches have improved a lot since she was started on prophylactic Tx with Topiramate 50 mg Q HS and Amitriptyline 20 mg Q HS but they seem to have regressed lately and thinks that she has now identified the possible reason for her increased headaches recently and will work on avoiding this Reinforced avoidance of any and all potential migraine triggers as much as possible Continue FIoricet PRN Follow up with neurology as scheduled (6) Maxillary sinus cyst: Code(s): 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 - Cyst and mucocele of nose and nasal sinus Plan: Follow up with ENT as scheduled Was advised no intervention at this time and recommended just observation for now (7) GERD without esophagitis: Code(s): K21.9 - Gastro-esophageal reflux disease without esophagitis Plan: Dietary restrictions reinforced Continue Omeprazole 20 mg QD PRN (8) Allergic rhinitis: Code(s): J30.9 - Allergic rhinitis, unspecified Qualifiers: Allergic rhinitis trigger: unspecified Allergic rhinitis seasonality: unspecified Qualified Code(s): J30.9 - Allergic rhinitis, unspecified Plan: Continue OTC Loratadine 10 mg QD PRN and Fluticasone nasal spray 50 mcg 1 spray into each nostril QD PRN (9) Anxiety: Code(s): F41.9 - Anxiety disorder, unspecified Plan: States that her Citalopram Rx was helping with her anxiety but she has increased stress lately (see HPI) She declines offer to adjust her Rx at this time but is advised that she can call at any time if she feels her anxiety is getting out of hand (10) Depression: Code(s): F32.9 - Major depressive disorder, single episode, unspecified Qualifiers: Depression Type: major depressive disorder Major depression recurrence: recurrent Active/Remission status: currently active Major depression episode severity: unspecified Qualified Code(s): F33.9 - Major depressive disorder, recurrent, unspecified Plan: Continue Citalopram 20 mg QD (11) Obesity (BMI 30-39.9): Code(s): E66.9 - Obesity, unspecified Plan: Reinforced diet/exercise as tolerated/lose weight Plan Follow up in 4 months Orders: Orders Comprehensive Pony. Panel Fast 4 Months E78.00 - Pure hypercholesterolemia, unspecified Hemoglobin A1c 4 Months R73.01 - Impaired fasting glucose Free T4 (Free Thyroxine) 4 Months E03.9 - Hypothyroidism, unspecified UA CC w/rflx Micro + Cult 4 Months R30.0 - Dysuria Vitamin D 25-OH Total 4 Months E55.9 - Vitamin D deficiency, unspecified Complete Blood Count Auto Diff 4 Months D64.9 - Anemia, unspecified Lipid Panel 4 Months E78.00 - Pure hypercholesterolemia, unspecified Thyroid Stimulating Hormone 4 Months E03.9 - Hypothyroidism, unspecified Coding Level of Care Code Est Pt Level 4 (09024) Complex EM visit Add On G2211 Diagnoses Benign essential hypertension I10 Pure hypercholesterolemia E78.00 Acquired hypothyroidism E03.9 Impaired fasting glucose R73.01 Migraine without status migrainosus, not intractable, unspecified migraine type G43.909 Migraine type: unspecified Status migrainosus presence: without status migrainosus Intractability: not intractable 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 GERD without esophagitis K21.9 Allergic rhinitis, unspecified seasonality, unspecified trigger J30.9 Allergic rhinitis trigger: unspecified Allergic rhinitis seasonality: unspecified Anxiety F41.9 Episode of recurrent major depressive disorder, unspecified depression episode severity F33.9 Depression Type: major depressive disorder Major depression recurrence: recurrent Active/Remission status: currently active Major depression episode severity: unspecified Obesity (BMI 30-39.9) E66.9
== END 2023-10-09 16:10 | disposition home or self-care (01) ==
PROVIDERS: PCP Internal Medicine; Visit Provider Internal Medicine
DX: I10 Essential (primary) hypertension (principal); F33.9 Major depressive disorder, recurrent, unspecified; E78.00 Pure hypercholesterolemia, unspecified; E03.9 Hypothyroidism, unspecified; R73.01 Impaired fasting glucose; G43.909 Migraine, unspecified, not intractable, without status migrainosus; J34.1 Cyst and mucocele of nose and nasal sinus; K21.9 Gastro-esophageal reflux disease without esophagitis; J30.9 Allergic rhinitis, unspecified; F41.9 Anxiety disorder, unspecified
CPT/HCPCS: 99214; G2211

== ENCOUNTER 2023-10-10 08:34 | Outpatient (REF) | payer MEDICARE, OTHER, SELFPAY ==
[2023-10-10 08:50] LABS: MANUAL DIFF FLAG NO
[2023-10-10 09:15] LABS: Basophils Percent Auto 0.6 % (0-2); Eosinophils Absolute Auto 0.2 X10*3/uL (0.0-0.4); Eosinophils Percent Auto 3.1 % (0-4); Hematocrit 42.8 % (37.0-47.0); Lymphocytes Absolute Auto 2.2 X10*3/uL (1.2-4.9); Lymphocytes Percent Auto 42.5 % (20-40); Mean Corpuscular HGB Conc 32.7 g/dl (31.0-35.0); Mean Corpuscular Hemoglobin 29.5 pg (27.0-33.0); Mean Corpuscular Volume 90.3 fL (80.0-98.0); Mean Platelet Volume 12.1 fL (9.4-12.3); Monocytes Absolute Auto 0.3 X10*3/uL (0.1-1.2); Monocytes Percent Auto 5.8 % (2-11); Neutrophils Absolute Auto 2.5 x10*3/uL (2.0-8.3); Platelet Count 188 X10*3/uL (160-400); Red Blood Count 4.74 X10*6/uL (4.20-5.50); Red Cell Distribution Width 13.4 % (11.0-16.0); White Blood Count 5.2 X10*3/uL (4.8-10.8)
[2023-10-10 09:57] LABS: Alanine Aminotransferase 18 U/L (0-31); Albumin Level 4.1 g/dL (3.5-5.0); Alkaline Phosphatase 49 U/L (39-117); Anion Gap 11 (12-20); Aspartate Amino Transferase 20 U/L (5-31); Bilirubin Total 0.6 mg/dL (0.0-1.0); Blood Urea Nitrogen 16 mg/dL (9-16); Carbon Dioxide 24 mmol/L (22-29); Chloride 111 mmol/L (96-108); Cholesterol 189 mg/dL (<200); Estimated Glomerular Filt Rate > 60; Glucose Fasting 101 mg/dL (60-99); HDL Cholesterol 61 mg/dL (>40); LDL Cholesterol Calculated 112 mg/dL (<100); Potassium 4.4 mmol/L (3.3-5.1); Sodium 142 mmol/L (135-145); Total Protein 7.1 g/dL (6.5-8.0); Triglycerides 84 mg/dL (<150)
[2023-10-10 10:16] LABS: Free T4 (Free Thyroxine) 0.98 ng/dL (0.71-1.85); Thyroid Stimulating Hormone 1.79 uIU/mL (0.32-4.0); Vitamin D 25-OH Total 31.8 ng/mL (>30)
[2023-10-10 10:26] LABS: Appearance Urine Clear; Color Urine Yellow; Glucose Urine UA Negative (Negative); Leukocyte Esterase Urine Negative (Negative); Nitrite Urine Negative (Negative); Specific Gravity - Urine 1.015 (1.005-1.025); Urine Blood Negative (Negative); Urine Ketones Negative (Negative); Urine Protein Negative (Neg-Trace)
== END 2023-10-10 08:35 | disposition home or self-care (01) ==
LOC: HO.LAB 08:34
PROVIDERS: PCP Internal Medicine; Visit Provider Internal Medicine
DX: E78.00 Pure hypercholesterolemia, unspecified (principal); R30.0 Dysuria; E55.9 Vitamin D deficiency, unspecified; E03.9 Hypothyroidism, unspecified; I10 Essential (primary) hypertension
CPT/HCPCS: 36415; 80053; 80061; 81003; 82306; 84439; 84443; 85025

== ENCOUNTER 2024-02-03 13:41 | Emergency (ER) | payer MEDICARE, OTHER, SELFPAY ==
--- NOTE | ~2024-02-03 | CT_ITS ---
EXAMINATION: CT HEAD WITHOUT CONTRAST CT CERVICAL SPINE WITHOUT CONTRAST CLINICAL INFORMATION: Pain, fall. COMPARISON: Brain MRI 11/30/2020. TECHNIQUE: Contiguous axial imaging was performed from the skull base to vertex without intravenous administration of contrast. Contiguous axial imaging was performed from the upper chest through the skull base without intravenous administration of contrast. Coronal and sagittal reformats were obtained at the acquisition workstation. This CT examination was performed using dose optimization techniques as appropriate, variously including the following: *Automated exposure control *Adjustment of mA and/or kV according to patient size (this includes techniques or standardized protocols for targeted exams where dose is matched to indication/reason for exam; i.e. extremities or head) *Use of iterative reconstruction technique DLP: 907 mGy-cm FINDINGS: Head: There is no evidence of acute intracranial hemorrhage or edematous territorial infarction. A few foci of hypoattenuation in the periventricular and deep white matter are consistent with mild microangiopathy. Gu-white matter differentiation is preserved. Proportional prominence of the ventricles and sulcal spaces. No evidence for obstructive hydrocephalus. No abnormal mass effect or midline shift. No extra-axial fluid collections. No acute soft tissue or osseous abnormalities. Mucous retention cyst in the left maxillary sinus. Trace air-fluid level in the left sphenoidal sinus. Moderate to large left mastoid effusion with opacification of the left middle ear cavity. Bilateral lens extraction. Cervical Spine: The atlantooccipital and atlantoaxial articulations remain well aligned. Straightening of the cervical lordosis. Trace anterolisthesis of C4 on C5. Mild to moderate multilevel cervical spondylosis with intervertebral disc height loss and facet/uncal hypertrophy. There is no prevertebral soft tissue swelling. The thyroid gland and remaining cervical soft tissues are normal in appearance. The lung apices demonstrate no abnormalities. CT/CT cervical spine wo IV con IMPRESSION: 1. No acute intracranial pathology. 2. No acute cervical spinal fractures or malalignment. 3. Moderate to large left mastoid effusion with opacification of the left middle ear cavity. Large mucous retention cyst in the left maxillary sinus with trace air-fluid level in the left sphenoidal sinus. Recommend clinical correlation for sinusitis and otomastoiditis. Electronically signed by: Chelle Marr MD 02/03/2024 04:07 PM EDT
--- NOTE | ~2024-02-03 | XR_ITS ---
EXAMINATION: XR KNEE, LEFT CLINICAL INFORMATION: Fall, pain. COMPARISON: None available. TECHNIQUE: Four views of the left knee. FINDINGS: No acute fracture or dislocation. Mild tricompartmental degenerative osteoarthritis. No joint effusion. Nonspecific tubular shaped body overlying the superficial soft tissues of the posterolateral compartment. XR/XR knee LT 4V IMPRESSION: 1. No acute fracture or dislocation. 2. Nonspecific tubular shaped body overlying the superficial soft tissues of the posterolateral compartment, correlate with physical examination. Electronically signed by: Chelle Marr MD 02/03/2024 09:29 PM EDT
--- NOTE | ~2024-02-03 | XR_ITS ---
EXAMINATION: XR HIP, LEFT CLINICAL INFORMATION: Fall, pain. COMPARISON: None available. TECHNIQUE: Two views of the left hip. FINDINGS: No acute fracture or subluxation. Mild degenerative osteoarthritis in both hips. SI joints are symmetric. Pubic symphysis and pelvic brim are maintained. Nonspecific calcifications overlying the right hemisacrum. XR/XR hip LT w PEL1V IMPRESSION: No acute fracture or subluxation. Electronically signed by: Chelle Marr MD 02/03/2024 09:28 PM EDT
--- NOTE | ~2024-02-03 | CT_ITS ---
EXAMINATION: CT ANGIOGRAM HEAD CT ANGIOGRAM NECK CLINICAL INFORMATION: Vascular injury. COMPARISON: 1384 TECHNIQUE: Initial noncontrast rn camp imaging of the head and neck was performed. Comparison is made with noncontrast head CT from earlier today. Test bolus sequences followed by intravenous administration 70 mL of Omnipaque 350. Helical imaging was performed in the axial plane from the aortic arch to the skull vertex. Delayed postcontrast imaging of the head was also performed. The data was processed at the nuclear medical technologist's workstation for generation of MIP sequences. Angled MIPs and volume rendered reformatted images were also generated at an offline 3D workstation. Stenoses are assessed in accordance with NASCET criteria unless otherwise indicated. This CT examination was performed using dose optimization techniques as appropriate, variously including the following: *Automated exposure control. *Adjustment of mA and/or kV according to patient size (this includes techniques or standardized protocols for targeted exams where dose is matched to indication/reason for exam; i.e. extremities or head). *Use of iterative reconstruction technique. DLP: 1384 mGy-cm FINDINGS: CT Head: There is no evidence of acute intracranial hemorrhage or edematous territorial infarction. Gu-white matter differentiation is preserved. A few foci of hypoattenuation in the periventricular and deep white matter are consistent with mild microangiopathy. The ventricles are normal in morphology and size. No evidence for obstructive hydrocephalus. No abnormal mass effect or midline shift. No extra-axial fluid collections. No pathologic intra-axial enhancement or regional oligemia. No acute soft tissue or osseous abnormalities. Mild mucosal thickening of the paranasal sinuses. Changes of left-sided canal wall down mastoidectomy. The right-sided mastoid air cells and middle ear cavity are clear. Bilateral lens extractions. CT Neck: Atrophy of the right-sided mandibular gland. The thyroid gland and remaining cervical soft tissues are within normal limits. Moderate degenerative arthropathy of the atlantodental articulation. Straightening of the normal cervical lordosis. Mild degenerative anterolisthesis of C4 on C5. Ankylosis of the right C2-C3 facets. Facet and uncovertebral joint arthropathy leads to osseous encroachment on the neural foramina from C3-C5. CT Upper Chest: The visualized lung apices and upper mediastinum are within normal limits. Neck CTA: Aortic Arch: Normal contour and caliber with mild calcific atherosclerotic disease. Classic 3 vessel branching pattern of the aortic arch. Great Vessel Origins: No significant stenosis of the branch origins. Right Common Carotid Artery: No focal stenosis or occlusion. Cervical Right Internal Carotid Artery: Mild calcific atherosclerotic disease of the carotid bulb and proximal internal carotid artery without flow-limiting stenosis. Left Common Carotid Artery: No focal stenosis or occlusion. Cervical Left Internal Carotid Artery: Normal opacification without focal stenosis or occlusion. Cervical Right Vertebral Artery: No focal stenosis or occlusion. Cervical Left Vertebral Artery: Mildly dominant. No focal stenosis or occlusion. Brain CTA: Intracranial Internal Carotid Arteries: No focal stenosis or occlusion. Right Anterior Cerebral Artery: Normal A1 segment. Normal opacification of the distal [place] segments. Left Anterior Cerebral Artery: Normal A1 segment. Normal opacification of the distal [place] segments. Anterior Communicating Artery: Normal. Right Middle Cerebral Artery: Normal M1 segment of the MCA without focal stenosis or occlusion. Normal arborization of the distal segments. Left Middle Cerebral Artery: Normal M1 segment of the MCA without focal stenosis or occlusion. Normal arborization of the distal segments. Right Vertebral Artery: Normal V4 segment. Normal opacification of the proximal segments of the posterior inferior cerebellar artery. Left Vertebral Artery: Normal V4 segment. Normal opacification of the proximal segments of the posterior inferior cerebellar artery. Basilar Artery: Normal without focal stenosis or occlusion. Normal appearance of the proximal superior cerebellar arteries. Right Posterior Cerebral Artery: The P1 segment is mildly diminutive. origin of the [employer] with robust opacification of the posterior communicating artery. Normal opacification of the distal [employer] SK[employer] TE[employer]ER segments. Left Posterior Cerebral Artery: Normal P1 segment. Normal opacification of the distal [employer] SK[employer]ER segments. Normal opacification of the superior sagittal, straight, transverse, and sigmoid sinuses. CT/CT angio head neck IMPRESSION: 1. No evidence of acute intracranial hemorrhage or edematous territorial infarction. Mild underlying microangiopathy. 2. CTA of the head and neck without proximal occlusion or flow-limiting stenosis. No evidence of traumatic vascular injury. Electronically signed by: Ponce Mora DO 02/03/2024 10:47 PM EDT
[2024-02-03 13:42] VITALS: BP 169/85; PULSE 76; RESP 18; TEMP 37.2; O2SAT 99; BMI 31.6
--- NOTE | 2024-02-03 13:42 | ED.FALL ---
HPI - Fall General Chief Complaint: Fall Stated Complaint: Fall head inj Time Seen by Provider: 02/03/24 20:33 History of Present Illness ED Provider: Cali RICH Narrative: 68-year-old female with past medical history of depression, anxiety, hypothyroidism, hypertension, GERD presenting for a fall with head strike. Patient states that she fell approximately 10-12 days ago while she was in her garden. She reported slipping and falling backwards hitting the left side of her neck on the garden fence. She has since had mild pain to her left neck and a handful of episodes of vertigo. She last had an episode [place] She spoke to her PCP about this who recommended coming to the emergency department. These episodes are fleeting lasting approximately a few seconds. She denies head pain, visual disturbances, chest pain, shortness of breath, abdominal pain, nausea, vomiting, urinary symptoms. She does however endorse mild left knee and left hip pain since the fall Related Data Home Medications ?Medication ?Instructions ?Recorded ?Confirmed loratadine 10 mg tablet (Claritin) 10 mg PO DAILY 05/03/20 10/09/23 amitriptyline 10 mg tablet 20 mg PO BEDTIME 12/29/21 10/09/23 topiramate 25 mg tablet 50 mg PO BEDTIME 12/29/21 10/09/23 Previous Rx's ?Medication ?Instructions ?Recorded rwykfudbav-zwynnmaxeajhh-afemuytn 1 tab PO Q4-6H PRN headache 30 02/28/23 50 mg-325 mg-40 mg tablet days #90 tabs fluticasone propionate 50 1 spray intranasal DAILY #48 mL 02/28/23 mcg/actuation nasal spray,suspension levothyroxine 50 mcg tablet 50 mcg PO DAILY #90 tabs 06/26/23 omeprazole 20 mg capsule,delayed 20 mg PO DAILY 90 days #90 caps 07/30/23 release lisinopril 10 mg tablet 10 mg PO DAILY #90 tabs 12/23/23 citalopram 10 mg tablet 10 mg PO DAILY #90 tabs 12/24/23 simvastatin 5 mg tablet 5 mg PO BEDTIME #90 tabs 01/23/24 Allergies Allergy/AdvReac Type Severity Reaction Status Date / Time bupropion [From Wellbutrin] Allergy Mild Stomach Verified 02/03/24 13:45 Upset peanut Allergy Mild Nasal Verified 02/03/24 13:45 congestion Sulfa (Sulfonamide Allergy Unknown PETICHIA, Verified 02/03/24 13:45 Antibiotics) petecchiae [SULFA(SULFONAMIDE ANTIBIOTICS)] Dairy Allergy Mild Abdominal Uncoded 02/03/24 13:45 Pain mushroom , wine Allergy Unknown Unknown Uncoded 02/03/24 13:45 Review of Systems Review of Systems: Patient endorses dizziness, left knee knee pain, left hip pain Patient denies chest pain, head pain, shortness of breath, diaphoresis, abdominal pain, nausea, vomiting, urinary symptoms, fevers, chills Yes all other systems are reviewed and are negative PMFSH Past Medical History Medical History Basal cell carcinoma of left side of nose Headache Obesity (BMI 30-39.9) Depression Anxiety GERD without esophagitis Allergic rhinitis Impaired fasting glucose Migraine Acquired hypothyroidism Benign essential hypertension Pure hypercholesterolemia Surgical History History of surgery History of eye surgery Hx of mastoidectomy History of cataract surgery History of carpal tunnel release History of open reduction and internal fixation (ORIF) procedure Family History Family History Father CVD (cardiovascular disease) Mother Esophageal cancer Daughter In good health Social History Social History Housing: House Alcohol intake: never Patient Tobacco Use Status: Former Tobacco user Smoked in Last 30 Days: No Second Hand Smoke Exposure: Yes Use of substances other than those prescribed or required for medical reasons: No Advance Directives: No Advance Directives Information Provided: No Do you have a plan to hurt others: No Plan service: No Current occupational status: retired Cognitive needs: No Hearing needs: Yes Vision needs: Yes Physical Exam Vital Signs: Vital Signs: Last Vital Signs Temp 97.4 F 02/03/24 20:33 Pulse 62 02/03/24 20:33 Resp 17 02/03/24 20:33 BP 137/68 02/03/24 20:33 Pulse Ox 97 02/03/24 20:33 O2 Del Method Room Air 02/03/24 20:33 BMI result Body Mass Index 31.6 Head normocephalic atraumatic; no midline C-spine tenderness to palpation; mild left paraspinal C-spine tenderness to palpation Patient walking with steady gait Lungs clear to auscultation bilaterally; normal S1-S2 regular rate and rhythm Abdomen is soft nontender nondistended Mild left lateral knee tenderness to palpation; mild left hip tenderness to palpation; full range of motion at all joints of left lower extremity and neurovascularly intact with good DP pulse Course Course Course Narrative: This is an RME: Additional HPI, ROS, PE not included below will be deferred to primary provider. RME assessment and note performed by: Ginger Villa PA-C This is a 68 year old female, with a hx of hypothyroidism, HTN, HLD, who presents to the ER with a complaint of . Pt states that on January 21 she slipped and fell in her yard.She states that she hit the back of her head on the garden fence. She states that on 01/25 she felt dizzy, noticing with changing positions. Reports over the weekend the dizziness has been more often. She is not on anticoagulants. Plan: Labs, EKG, CT head/neck Medications Administered Discontinued Medications Generic Name Dose Route Start Last Admin Trade Name Freq PRN Reason Stop Dose Admin Iohexol 70 ml 02/03/24 21:59 02/03/24 22:00 Iohexol 350 Mg/Ml 100 Ml Infus..Btl IV 02/03/24 22:00 70 ml ONCE ONE Administration Medical Decision Making Medical Decision Making [facility] Narrative: Since [age]-year-old female presenting for dizziness in the setting of a fall nearly 2 weeks ago. I am concerned for the following; concussion, electrolyte/metabolic disturbance, neck vascular trauma, head bleed - I have no concerns for ACS or PE as patient is low risk per heart score and Wells criteria patient has no complaints of chest pain or shortness of breath - I do not think that patient experiencing recurrent stroke and she has no focal neurologic deficits exam - labs and imaging studies ordered - labs are notable for stable H&H and normal white count, negative troponin, electrolytes within normal limits, normal creatinine - I do not appreciate any acute osseous injury on her knee x-ray or hip x-ray and Radiology interpretation was negative for acute trauma - I do not appreciate vascular trauma on CT head and neck and radiology interpretation is negative for acute trauma - I considered admission however given patient's well appearance and largely negative workup I feel she is safe to be discharged home with outpatient follow up - the patient is in close communication with her PCP and can arrange for an appointment to be seen promptly. I gave her return precautions Lab Data 02/03/24 14:09 02/03/24 14:09 Labs: Lab Results 02/03/24 Range/Units 14:09 WBC 7.1 (4.8-10.8) X10*3/uL RBC 4.63 (4.20-5.50) X10*6/uL Hgb 13.9 (12.0-16.0) g/dl Hct 41.5 (37.0-47.0) % MCV 89.6 (80.0-98.0) fL MCH 30.0 (27.0-33.0) pg MCHC 33.5 (31.0-35.0) g/dl RDW 13.5 (11.0-16.0) % Plt Count 200 (160-400) X10*3/uL MPV 11.6 (9.4-12.3) fL Immature Gran % (Auto) 0.3 (0.0-0.4) % Neut % (Auto) 55.1 (45-73) % Lymph % (Auto) 35.1 (20-40) % [place] % (Auto) 5.9 (2-11) % Eos % (Auto) 3.0 (0-4) % Baso % (Auto) 0.6 (0-2) % Lymph # (Auto) 2.5 (1.2-4.9) X10*3/uL [place] # (Auto) 0.4 (0.1-1.2) X10*3/uL Eos # (Auto) 0.2 (0.0-0.4) X10*3/uL Baso # (Auto) 0.0 (0.0-0.2) X10*3/uL Abs Immat Gran (auto) 0.02 (0.00-0.03) X10*3/uL Absolute Neuts (auto) 3.9 (2.0-8.3) x10*3/uL Absolute Nucleated RBC 0.000 (0.0-0.012) X10*3/uL Nucleated RBC % (auto) 0.0 (0.0-0.2) /100WBC PT 11.6 (10.9-12.4) SEC INR 1.0 (0.9-1.1) APTT 30.0 (26.0-36.8) SEC Sodium 142 (135-145) mmol/L Potassium 3.9 (3.3-5.1) mmol/L Chloride 111 H (96-108) mmol/L Carbon Dioxide 24 (22-29) mmol/L Anion Gap 11 L (12-20) BUN 21 H (9-16) mg/dL Creatinine 0.98 (0.5-1.4) mg/dL Estim Creat Clear Calc 60.8 Estimated GFR 56 Random Glucose 108 (60-115) mg/dL Calcium 9.3 (8.4-10.2) mg/dL Magnesium 2.2 (1.6-2.6) mg/dL Total Bilirubin 0.5 (0.0-1.0) mg/dL Direct Bilirubin 0.2 (0.0-0.5) mg/dL AST 19 (5-31) U/L ALT 17 (0-31) U/L Alkaline Phosphatase 50 (39-117) U/L Troponin I High Sens < 2.7 (<3.5-17.0) ng/L Total Protein 7.1 (6.5-8.0) g/dL Albumin 4.1 (3.5-5.0) g/dL Discharge Plan Discharge Clinical Impression: Dizziness, Left knee pain Patient Disposition: Home, Self-Care Additional Instructions: Please schedule an appointment with your PCP to be seen in 24-48 hours If you develop any new or worsening symptoms please return to the emergency department Prescriptions: No Action loratadine [Claritin] 10 mg tablet 10 mg PO DAILY lgfizmhqhx-evuafbiusmjge-ffjn 50-325-40 mg tablet 1 tab PO Q4-6H PRN (Reason: headache) 30 Days Qty: 90 1RF fluticasone propionate 50 mcg/actuation spray,suspension 1 spray intranasal DAILY Qty: 48 3RF levothyroxine 50 mcg tablet 50 mcg PO DAILY Qty: 90 3RF omeprazole 20 mg capsule,delayed release(DR/EC) 20 mg PO DAILY 90 Days Qty: 90 3RF lisinopril 10 mg tablet 10 mg PO DAILY Qty: 90 1RF citalopram 10 mg tablet 10 mg PO DAILY Qty: 90 3RF simvastatin 5 mg tablet 5 mg PO BEDTIME Qty: 90 0RF amitriptyline 10 mg tablet 20 mg PO BEDTIME topiramate 25 mg tablet 50 mg PO BEDTIME Print Language: Bulgarian
--- NOTE | 2024-02-03 13:48 | ECG_ITS ---
Test Reason : dizziness Blood Pressure : / mmHG Vent. Rate : 065 BPM Atrial Rate : 065 BPM P-R Int : 146 ms QRS Dur : 086 ms QT Int : 420 ms P-R-T Axes : 058 -32 042 degrees QTc Int : 436 ms Normal sinus rhythm Left axis deviation Abnormal ECG When compared with ECG of 02-DEC-2006 16:47, No significant change was found Referred By: Ginger Villa Electronically Signed By:NED HART
[2024-02-03 14:13] LABS: MANUAL DIFF FLAG NO
[2024-02-03 14:14] LABS: Basophils Percent Auto 0.6 % (0-2); Eosinophils Absolute Auto 0.2 X10*3/uL (0.0-0.4); Hematocrit 41.5 % (37.0-47.0); Hemoglobin 13.9 g/dl (12.0-16.0); Imm Gran Abs Auto 0.02 X10*3/uL (0.00-0.03); Imm Gran Pct Auto 0.3 % (0.0-0.4); Lymphocytes Absolute Auto 2.5 X10*3/uL (1.2-4.9); Lymphocytes Percent Auto 35.1 % (20-40); Mean Corpuscular HGB Conc 33.5 g/dl (31.0-35.0); Mean Corpuscular Volume 89.6 fL (80.0-98.0); Mean Platelet Volume 11.6 fL (9.4-12.3); Monocytes Absolute Auto 0.4 X10*3/uL (0.1-1.2); Monocytes Percent Auto 5.9 % (2-11); Neutrophils Absolute Auto 3.9 x10*3/uL (2.0-8.3); Neutrophils Percent Auto 55.1 % (45-73); Platelet Count 200 X10*3/uL (160-400); Red Blood Count 4.63 X10*6/uL (4.20-5.50); Red Cell Distribution Width 13.5 % (11.0-16.0); White Blood Count 7.1 X10*3/uL (4.8-10.8)
[2024-02-03 14:32] LABS: Alanine Aminotransferase 17 U/L (0-31); Albumin Level 4.1 g/dL (3.5-5.0); Alkaline Phosphatase 50 U/L (39-117); Anion Gap 11 (12-20); Aspartate Amino Transferase 19 U/L (5-31); Bilirubin Direct 0.2 mg/dL (0.0-0.5); Bilirubin Total 0.5 mg/dL (0.0-1.0); Blood Urea Nitrogen 21 mg/dL (9-16); Calcium 9.3 mg/dL (8.4-10.2); Carbon Dioxide 24 mmol/L (22-29); Chloride 111 mmol/L (96-108); Creatinine Clr Calc Pharmacy 60.8; Estimated Glomerular Filt Rate 56; Glucose Random 108 mg/dL (60-115); Magnesium 2.2 mg/dL (1.6-2.6); Potassium 3.9 mmol/L (3.3-5.1); Prothrombin Time 11.6 SEC (10.9-12.4); Sodium 142 mmol/L (135-145); Total Protein 7.1 g/dL (6.5-8.0)
[2024-02-03 14:39] LABS: Troponin-I High Sensitivity < 2.7 ng/L (<3.5-17.0)
[2024-02-03 20:33] VITALS: BP 137/68; PULSE 62; RESP 17; TEMP 36.3; O2SAT 97
[2024-02-03] MEDS: iohexoL 350 MG/ML 100 ML INFUS..BTL 70 ML IV (22:00)
[2024-02-03 23:57] VITALS: BP 133/59; PULSE 59; RESP 14; TEMP 36.4; O2SAT 98
[2024-02-04 00:01] VITALS: BP 133/59; PULSE 59; RESP 14; TEMP 36.4; O2SAT 98
== END 2024-02-04 00:02 | disposition home or self-care (01) ==
PROVIDERS: Physician Assistant Medical; Emergency Provider Student in an Organized Health Care Education/Training Program; PCP Internal Medicine
DX: S09.90XA Unspecified injury of head, initial encounter (principal); R42 Dizziness and giddiness; M25.562 Pain in left knee; R94.31 Abnormal electrocardiogram [ECG] [EKG]; R10.2 Pelvic and perineal pain; R51.9 Headache, unspecified; M25.552 Pain in left hip; M54.2 Cervicalgia; W01.0XXA Fall on same level from slipping, tripping and stumbling without subsequent striking against object, initial encounter; Y93.H2 Activity, gardening and landscaping; Y92.89 Other specified places as the place of occurrence of the external cause; Y99.8 Other external cause status; Z79.899 Other long term (current) drug therapy; Z87.891 Personal history of nicotine dependence
CPT/HCPCS: 36415; 70450; 70496; 70498; 72125; 73502; 73564; 80048; 80076; 83735; 84484; 85025; 85610; 85730; 93005; 99284; Q9967

== ENCOUNTER → 2024-02-03 13:48 | Outpatient (BNV) | payer MEDICARE, OTHER, SELFPAY | PROVIDERS: Emergency Provider Student in an Organized Health Care Education/Training Program; PCP Internal Medicine; Visit Provider Internal Medicine | DX: R42 Dizziness and giddiness (principal) | CPT/HCPCS: 93010 ==

== ENCOUNTER 2024-02-12 14:07 | Outpatient (AMB) | payer MEDICARE, OTHER, SELFPAY ==
[2024-02-12 14:11] VITALS: BP 112/64; PULSE 72; O2SAT 96; BMI 31.0
--- NOTE | 2024-02-12 14:11 | MHC.PC.OV ---
Vital Signs 02/12/24 14:11 Height 5 ft 6 in Weight 192 lb BMI 31.0 BP 112/64 Blood Pressure Location Lt brachial Position Sitting Pulse 72 Pulse Source Pulse Oximeter Pulse Oximetry (%) 96 Oxygen Delivery Method Room Air Intake Visit Reasons: 4mof\u Tier Over Required: No Accompanied by: Self / Same As Patient Allergies bupropion [From Wellbutrin] Allergy (Mild, Verified 02/12/24 14:59) Stomach Upset peanut Allergy (Mild, Verified 02/12/24 14:59) Nasal congestion Sulfa (Sulfonamide Antibiotics) [SULFA(SULFONAMIDE ANTIBIOTICS)] Allergy (Unknown, Verified 02/12/24 14:59) PETICHIA, petecchiae Dairy Allergy (Mild, Uncoded 02/12/24 14:59) Abdominal Pain mushroom , wine Allergy (Unknown, Uncoded 02/12/24 14:59) Unknown Medication List - Last Reconciled 02/12/24 by Nehemias Gonzáles MD amitriptyline 20 mg PO BEDTIME [id number] 50-325-40 mg 1 tab PO Q4-6H PRN 30 days citalopram 10 mg PO DAILY fluticasone propionate 50 mcg/actuation 1 spray intranasal DAILY levothyroxine 50 mcg PO DAILY lisinopril 10 mg PO DAILY loratadine (Claritin) 10 mg PO DAILY omeprazole 20 mg PO DAILY 90 days simvastatin 5 mg PO BEDTIME topiramate 50 mg PO BEDTIME Tobacco use date assessed: 02/12/24 Fall risk assessment: 1 Fall in past year Last assessed Fall Risk: 02/12/24 Dental Screening Dental Screen Date: 02/12/24 Did you have a dental visit in the last 12 months?: Yes Did you have a dental problem in the last 6 months where you did not have access to dental care?: No Was dental information given to patient?: Patient has dentist HPI 4mof\u HPI Details Patient comes in today for her follow-up visit States that she apparently sprained her left knee last week when she tripped and fell while working in her garden She reportedly hit her neck on the garden fence when she fell She went to the ER afterwards for further evaluation and had haed and cervical spine CT, head CTA as well as left knee x-rays done, all of which came back negative for acute injuries States that her neck pain has gradually improved but her left knee is still hurting at this time, especially when she bears weight on her left leg/knee States that she feels okay otherwise She denies any headaches or dizziness Denies any chest pains, no shortness of breath No nausea/vomiting, no abdominal pain No change in bowel habits noted She had her follow-up labs done last week - to discuss her results COUNT INCLUDES THE [facility] Medical History Basal cell carcinoma of left side of nose Headache Obesity (BMI 30-39.9) Depression Anxiety GERD without esophagitis Allergic rhinitis Impaired fasting glucose Migraine Acquired hypothyroidism Benign essential hypertension Pure hypercholesterolemia Surgical History History of surgery History of eye surgery Hx of mastoidectomy History of cataract surgery History of carpal tunnel release History of open reduction and internal fixation (ORIF) procedure Family History Father CVD (cardiovascular disease) Mother Esophageal cancer Daughter In good health Social History Housing: House Alcohol intake: never Patient Tobacco Use Status: Former Tobacco user Second Hand Smoke Exposure: Yes service: No Current occupational status: retired Cognitive needs: No Hearing needs: Yes Vision needs: Yes Questionnaire PHQ-9 Over the last 2 weeks, how often have you been bothered by any of the following problems? 1. Little interest or pleasure in doing things: not at all 2. Feeling down, depressed, or hopeless: not at all 3. Trouble falling or staying asleep, or sleeping too much: not at all 4. Feeling tired or having little energy: not at all 5. Poor appetite or overeating: not at all 6. Feeling bad about yourself - or that you are a failure or have let yourself or your family down: not at all 7. Trouble concentrating on things, such as reading the newspaper or watching television: not at all 8. Moving or speaking so slowly that other people could have noticed. Or the opposite - being so fidgety or restless that you have been moving around a lot more than usual: not at all 9. Thoughts that you would be better off or of hurting yourself in some way: not at all Total score: 0 Depression Screening Interpretation: Negative Depression Screening Done: Yes 44181 - PHQ-9 Billing: Yes Source: Developed by Drs. Iban Cui, Tere Dorsey, Monster Morrison and colleagues, with an educational bud from [employer]. Thrive Questionnaire Date Thrive assessed: 02/12/24 I am a: Patient What is your living situation today?: I have a steady place to live Within the past 12 months, did the food you bought not last and you didn't have the money to get more?: Never true Within the past 12 months, did you worry whether your food would run out before you got money to buy more?: Never true Do you have trouble paying for medicines?: No Do you have trouble getting transportation to medical appointments?: No Do you have trouble paying your heating and electricity bill?: No Do you have trouble taking care of your child, family member or friend?: No Do you have trouble with day-to-day activities such as bathing, preparing meals, shopping, managing finances, etc.?: No Are you currently unemployed and looking for a job?: No Are you interested in more education?: No Please select the resources that you would like help with: None Currently or been in a relationship where the following occur: No concerns reported THRIVE Score: 0 AUDIT C Alcohol Use Questionnaire (AUDIT-C) 1. How often do you have a drink containing alcohol?: Never 3. How often do you have six or more drinks on one occasion?: Never Total Score: 0 Score Reviewed/Action Taken: Yes MEHRAN-7 AMB Questionnaire MEHRAN-7 Date MEHRAN - 7 assessed: 02/12/24 Feeling nervous, anxious, or on edge: 0 = Not at all Not being able to stop or control worryin = Not at all Worrying too much about different things: 0 = Not at all Trouble relaxin = Not at all Being so restless that it is hard to sit still: 0 = Not at all Becoming easily annoyed or irritable: 0 = Not at all Feeling afraid as if something awful might happen: 0 = Not at all Total MEHRAN-7 score (0-4 normal; 5-9 mild; 10-14 moderate; 15-21 severe): 0 Source: Developed by Drs. Iban Cui, Tere Dorsey, Monster Morrison and colleagues, with an educational bud from [employer]. Review of Systems Const Denies chills, Denies fatigue, Denies fever(s) and Denies headache(s) ENT Denies dysphagia, Denies dizziness, Denies otalgia, Denies headache(s), Denies neck pain, Denies odynophagia and Denies sore throat Card Denies chest pain, Denies palpitations and Denies dyspnea Resp Denies chest congestion, Denies cough and Denies dyspnea GI Denies abdominal pain, Denies constipation, Denies dysphagia, Denies heartburn, Denies diarrhea, Denies nausea, Denies odynophagia and Denies vomiting Denies difficulty voiding, Denies nocturia, Denies dysuria and Denies urinary urgency Musc Denies back pain, Reports arthralgias (left knee - see HPI) and Denies neck pain Skin/Breast Denies rash Neuro Denies dizziness and Denies headache(s) Psych Reports anxiety Endo Denies fatigue and Denies palpitations Physical exam (Primary Care) Vital Signs: Last Vital Signs Pulse 72 02/12/24 14:11 BP 112/64 02/12/24 14:11 Pulse Ox 96 02/12/24 14:11 Oxygen Delivery Method Room Air 02/12/24 14:11 BMI result Body Mass Index 31.0 Tobacco/Smoking Status: Tobacco use Status Tobacco use date assessed 02/12/24 02/12/24 14:17 Patient Tobacco Use Status Former Tobacco user 02/12/24 14:17 PHQ-9: PHQ-9 Score PHQ-9: Total score 0 02/12/24 15:03 Depression Screening Interpretation: Negative Thrive Assessment: Date of Thrive Assessment Date Thrive assessed 02/12/24 02/12/24 14:17 Currently or been in a relationship where the following occur: No concerns reported Const General: no acute distress and alert HENMT Ears: TM's normal bilaterally and EAC's normal Throat: Yes posterior oropharynx normal and Yes tonsils normal (no TP congestion noted) Neck Neck: Yes no lymphadenopathy and Yes supple Thyroid: Thyroid normal Resp Auscultation: clear to auscultation bilaterally, no rales and no wheezes Cardio Rate: regular rate Rhythm: regular rhythm Heart sounds: no murmurs GI Palpation (GI): Soft to palpation and nontender Auscultation: normal bowel sounds General: Yes no CVA tenderness Back/Spine/Pelvis Back: no CVA tenderness Thoracic/Lumbar Spine: No lumbar spinal tenderness Skin Rashes: no rashes Extrem General: Yes no clubbing, cyanosis or edema Left lower extremity: knee Details: tenderness Location: of the infrapatellar area; no swelling Results Reviewed Results Reviewed: Laboratory Tests 10/10/23 10/10/23 02/03/24 08:49 09:30 14:09 WBC 7.1 Hgb 13.9 Hct 41.5 Plt Count 200 Sodium 142 Potassium 3.9 Creatinine 0.98 Estimated GFR 56 Random Glucose 108 Calcium 9.3 AST 19 ALT 17 Triglycerides 84 Cholesterol 189 LDL Cholesterol, Calc 112 H HDL Cholesterol 61 25-OH Vitamin D Total 31.8 TSH 1.79 Ur Specific [place] 1.015 Urine Protein Negative Urine Glucose (UA) Negative Urine Blood Negative Urine Nitrite Negative Ur Leukocyte Esterase Negative Coding Level of Care Code Est Pt Level 4 (02481) Complex EM visit Add On G2211 Diagnoses Sprain of left knee, unspecified ligament, sequela S83.92XS Encounter type: sequela Involved ligament of knee: unspecified ligament Benign essential hypertension I10 Pure hypercholesterolemia E78.00 Acquired hypothyroidism E03.9 Impaired fasting glucose R73.01 Migraine without status migrainosus, not intractable, unspecified migraine type G43.909 Migraine type: unspecified Status migrainosus presence: without status migrainosus Intractability: not intractable 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 Allergic rhinitis, unspecified seasonality, unspecified trigger J30.9 Allergic rhinitis trigger: unspecified Allergic rhinitis seasonality: unspecified GERD without esophagitis K21.9 Anxiety F41.9 Episode of recurrent major depressive disorder, unspecified depression episode severity F33.9 Depression Type: major depressive disorder Major depression recurrence: recurrent Active/Remission status: currently active Major depression episode severity: unspecified Obesity (BMI 30-39.9) E66.9 Assessment & Plan Assessment & Plan (1) Left knee sprain: Code(s): S83.92XA - Sprain of unspecified site of left knee, initial encounter Category: Medical Qualifiers: Encounter type: sequela Involved ligament of knee: unspecified ligament Qualified Code(s): S83.92XS - Sprain of unspecified site of left knee, sequela Plan: Left knee x-rays done at the ER last week showed no acute injuries Will refer patient to physical therapy for further management (2) Benign essential hypertension: Code(s): I10 - Essential (primary) hypertension Category: Medical Plan: Reinforced low sodium diet - goal is systolic BP of at least 130 to 140 mm or less Continue Lisinopril 10 mg QD (3) Pure hypercholesterolemia: Code(s): E78.00 - Pure hypercholesterolemia, unspecified Category: Medical Plan: Results of her labs done last week reviewed and discussed with patient Reinforced low cholesterol diet Continue Simvastatin 5 mg Q HS Will recheck her labs and fasting lipids in 4 months for follow up (4) Acquired hypothyroidism: Code(s): E03.9 - Hypothyroidism, unspecified Category: Medical Plan: Continue Levothyroxine 50 mcg QD Will continue to monitor her TFTs regularly (5) Impaired fasting glucose: Code(s): R73.01 - Impaired fasting glucose Category: Medical Plan: Her HgbA1c was normal at 5.3% when previously checked Reinforced low calorie/low carb diet (6) Migraine: Code(s): G43.909 - Migraine, unspecified, not intractable, without status migrainosus Category: Medical Qualifiers: Migraine type: unspecified Status migrainosus presence: without status migrainosus Intractability: not intractable Qualified Code(s): G43.909 - Migraine, unspecified, not intractable, without status migrainosus Plan: She was diagnosed with migraine by neurology a couple of years ago MRI of the brain done last year came out normal although it did show incidentally a left maxillary sinus cyst and patient has been seeing ENT for this States that her headaches have improved a lot since she was started on prophylactic Tx with Topiramate 50 mg Q HS and Amitriptyline 20 mg Q HS Reinforced avoidance of any and all potential migraine triggers Continue FIoricet PRN Follow up with neurology as scheduled (7) Maxillary sinus cyst: Code(s): J34.1 - Cyst and mucocele of nose and nasal sinus Category: Medical Plan: He was seen by ENT for evaluation and was advised no intervention at this time and recommended to just continue observation Follow up with ENT as scheduled (8) Allergic rhinitis: Code(s): J30.9 - Allergic rhinitis, unspecified Category: Medical Qualifiers: Allergic rhinitis trigger: unspecified Allergic rhinitis seasonality: unspecified Qualified Code(s): J30.9 - Allergic rhinitis, unspecified Plan: Continue OTC Loratadine 10 mg QD PRN and Fluticasone nasal spray 50 mcg 1 spray into each nostril QD PRN (9) GERD without esophagitis: Code(s): K21.9 - Gastro-esophageal reflux disease without esophagitis Category: Medical Plan: Dietary restrictions reinforced Continue Omeprazole 20 mg QD PRN (10) Anxiety: Code(s): F41.9 - Anxiety disorder, unspecified Category: Medical Plan: Patient states that her Citalopram is still helping with her anxiety (11) Depression: Code(s): F32.9 - Major depressive disorder, single episode, unspecified Category: Medical Qualifiers: Depression Type: major depressive disorder Major depression recurrence: recurrent Active/Remission status: currently active Major depression episode severity: unspecified Qualified Code(s): F33.9 - Major depressive disorder, recurrent, unspecified Plan: Continue Citalopram 20 mg QD (12) Obesity (BMI 30-39.9): Code(s): E66.9 - Obesity, unspecified Category: Medical Plan: Reinforced diet/exercise as tolerated/lose weight Plan Follow up in 6 months Orders: Orders PT Evaluation and Treatment 02/12/24 S83.92XA - Sprain of unspecified site of left knee, initial encounter Complete Blood Count Auto Diff 6 Months D64.9 - Anemia, unspecified Lipid Panel 6 Months E78.00 - Pure hypercholesterolemia, unspecified Comprehensive [place]. Panel Fast 6 Months E78.00 - Pure hypercholesterolemia, unspecified Thyroid Stimulating Hormone 6 Months E03.9 - Hypothyroidism, unspecified Free T4 (Free Thyroxine) 6 Months E03.9 - Hypothyroidism, unspecified Hemoglobin A1c 6 Months R73.01 - Impaired fasting glucose UA CC w/rflx Micro + Cult 6 Months R30.0 - Dysuria Vitamin D 25-OH Total 6 Months E55.9 - Vitamin D deficiency, unspecified
== END 2024-02-12 15:06 | disposition home or self-care (01) ==
PROVIDERS: PCP Internal Medicine; Visit Provider Internal Medicine
DX: I10 Essential (primary) hypertension (principal); S83.92XA Sprain of unspecified site of left knee, initial encounter; E78.00 Pure hypercholesterolemia, unspecified; F33.9 Major depressive disorder, recurrent, unspecified; E66.9 Obesity, unspecified; Z68.31 Body mass index [BMI] 31.0-31.9, adult; E03.9 Hypothyroidism, unspecified; R73.01 Impaired fasting glucose; G43.909 Migraine, unspecified, not intractable, without status migrainosus; J34.1 Cyst and mucocele of nose and nasal sinus; J30.9 Allergic rhinitis, unspecified; F41.9 Anxiety disorder, unspecified

== ENCOUNTER → 2024-02-12 14:07 | Outpatient (BNVA) | payer MEDICARE, OTHER, SELFPAY | PROVIDERS: PCP Internal Medicine; Visit Provider Internal Medicine | DX: S83.92XS Sprain of unspecified site of left knee, sequela (principal); I10 Essential (primary) hypertension; E78.00 Pure hypercholesterolemia, unspecified; E03.9 Hypothyroidism, unspecified; R73.01 Impaired fasting glucose; G43.909 Migraine, unspecified, not intractable, without status migrainosus; J43.1 Panlobular emphysema; J30.9 Allergic rhinitis, unspecified; K21.9 Gastro-esophageal reflux disease without esophagitis; F41.9 Anxiety disorder, unspecified; F33.9 Major depressive disorder, recurrent, unspecified; E66.9 Obesity, unspecified; Z68.31 Body mass index [BMI] 31.0-31.9, adult; Z71.3 Dietary counseling and surveillance | CPT/HCPCS: 96127; 99212 ==

== ENCOUNTER 2024-05-05 14:31 | Outpatient (RCR) | payer MEDICARE, OTHER, SELFPAY ==
--- NOTE | 2024-04-08 14:53 | MHC.PT.EP ---
[facility] [place] Office [place] [facility] [place] [facility] [address] Claus Schulz [address] [phone] F: [phone] F: [phone] F: [phone] F: [phone] Physical Therapy Plan of Care Date of Evaluation: 04/08/24 Date of Surgery: N/A Diagnosis: left knee sprain (RL) Assessment: pt is a 68 y/o female presenting to physical therapy w/ referring diagnosis of left knee sprain. Impairments include pain, decreased range of motion, decreased strength, impaired functional mobility, impaired postural awareness, and altered ambulation mechanics. pt is a good candidate for skilled PT due to age, potential remediation of impairments, typical disease/condition progression and prognosis, comorbidities, and motivation. pt would benefit from skilled PT intervention to provide a tailored strengthening and stretching exercise program, functional training, gait training, postural re-training, neuromuscular re-education, modalities as needed for pain, equipment safety demonstration. Frequency and Duration: The patient will be seen 2x/wk for 4 wks Short Term Goals: pt will be I w/ HEP to promote self-management of condition. pt will improve L knee flex ROM by 10 degrees to promote ease in stair navigation. Wastewater Engineer Goals: pt will ascend/descend 12 stairs using railing w/ reciprocal pattern. pt will report a statistically significant improvement in self-reported outcome measure, LEFI, to promote return to PLOF. Treatment Plan: Modalities to reduce pain, spasms and effusion. Manual therapy to restore motion and function. Therapeutic exercise to improve strength and flexibility. Neuromuscular re-education for posture and balance. Therapeutic activities to return to functional activities of daily living. Electronically signed by: Elda Rees PT, DPT Please sign and return to therapist. Thank you for your referral.
--- NOTE | 2024-05-18 13:38 | MHC.PT.DC ---
[facility] [place] Office [place] Office [place] Office [address] Claus Schulz 140 [facility] [phone] F: [phone] F: [phone] F: [phone] F: [phone] Physical Therapy Discharge Report Diagnosis: left knee sprain (RL) Date of Surgery: N/A Date of Evaluation: 04/08/24 Date of Discharge: 05/18/24 Treatments to Date: 7 Cancellations to Date: 2 No Shows to Date: 0 Discharge Status: Discharge Summary: The patient overall was reporting minimal knee symptoms. She had nearly returned to all her previous activities and exercise routines. The patient's last visit was cancelled and she did not reschedule so she is discharged at this time. Electronically signed by: Elda Rees PT, DPT Please sign and return to therapist. Thank you for your referral.
== END 2024-05-18 13:39 | disposition home or self-care (01) ==
LOC: HO.PT 14:31
PROVIDERS: PCP Internal Medicine; Visit Provider Internal Medicine
DX: S83.92XA Sprain of unspecified site of left knee, initial encounter (principal)
CPT/HCPCS: 97110; 97161; 97530

== ENCOUNTER 2024-08-10 08:09 | Outpatient (REF) | payer MEDICARE, OTHER, SELFPAY ==
[2024-08-10 08:23] LABS: MANUAL DIFF FLAG NO
[2024-08-10 09:01] LABS: Basophils Percent Auto 0.6 % (0-2); Eosinophils Absolute Auto 0.2 X10*3/uL (0.0-0.4); Eosinophils Percent Auto 2.2 % (0-4); Hematocrit 43.6 % (37.0-47.0); Hemoglobin 14.2 g/dl (12.0-16.0); Imm Gran Abs Auto 0.01 X10*3/uL (0.00-0.03); Imm Gran Pct Auto 0.1 % (0.0-0.4); Lymphocytes Absolute Auto 2.5 X10*3/uL (1.2-4.9); Mean Corpuscular HGB Conc 32.6 g/dl (31.0-35.0); Mean Corpuscular Hemoglobin 29.6 pg (27.0-33.0); Mean Platelet Volume 12.1 fL (9.4-12.3); Monocytes Absolute Auto 0.5 X10*3/uL (0.1-1.2); Monocytes Percent Auto 6.5 % (2-11); Neutrophils Absolute Auto 3.8 x10*3/uL (2.0-8.3); Neutrophils Percent Auto 54.6 % (45-73); Platelet Count 218 X10*3/uL (160-400); Red Blood Count 4.79 X10*6/uL (4.20-5.50); Red Cell Distribution Width 13.3 % (11.0-16.0); White Blood Count 6.9 X10*3/uL (4.8-10.8)
[2024-08-10 09:12] LABS: Estimated Average Glucose 111 mg/dL; Hemoglobin A1C 134.0525 umol/L; Hemoglobin A1c % 5.5 % (<6.0); Total Hemoglobin (HGBA1C) 3678.6634 umol/L
[2024-08-10 09:24] LABS: Appearance Urine Clear; Color Urine Yellow; Glucose Urine UA Negative (Negative); Leukocyte Esterase Urine Moderate (2+) (Negative); Nitrite Urine Negative (Negative); Specific Gravity - Urine 1.015 (1.005-1.025); UMIC TRIGGER UACC YES; Urine Blood Negative (Negative); Urine Ketones Negative (Negative); Urine Protein Negative (Neg-Trace)
[2024-08-10 09:30] LABS: Bacteria Urine None Seen (None Seen); Hyaline Casts Urine 0-2 /LPF (0-2); RBC Urine 0-2 /HPF (0-2); Squamous Epithelial Cell Urine 0-2 /HPF (0-2); UACC Culture Trigger YES
[2024-08-10 09:59] LABS: Alanine Aminotransferase 28 U/L (0-31); Albumin Level 4.2 g/dL (3.5-5.0); Alkaline Phosphatase 50 U/L (39-117); Anion Gap 12 (12-20); Aspartate Amino Transferase 27 U/L (5-31); Bilirubin Total 0.7 mg/dL (0.0-1.0); Blood Urea Nitrogen 18 mg/dL (9-16); Calcium 9.1 mg/dL (8.4-10.2); Carbon Dioxide 24 mmol/L (22-29); Chloride 110 mmol/L (96-108); Cholesterol 186 mg/dL (<200); Estimated Glomerular Filt Rate 52; Glucose Fasting 112 mg/dL (60-99); HDL Cholesterol 57 mg/dL (>40); LDL Cholesterol Calculated 105 mg/dL (<100); Potassium 4.1 mmol/L (3.3-5.1); Sodium 142 mmol/L (135-145); Total Protein 7.2 g/dL (6.5-8.0); Triglycerides 124 mg/dL (<150)
[2024-08-10 10:06] LABS: Free T4 (Free Thyroxine) 0.92 ng/dL (0.71-1.85); Thyroid Stimulating Hormone 3.87 uIU/mL (0.32-4.0)
== END 2024-08-10 08:10 | disposition home or self-care (01) ==
LOC: HO.LAB 08:09
PROVIDERS: PCP Internal Medicine; Visit Provider Internal Medicine
DX: E78.00 Pure hypercholesterolemia, unspecified (principal); R73.01 Impaired fasting glucose; E03.9 Hypothyroidism, unspecified; E55.9 Vitamin D deficiency, unspecified; R30.0 Dysuria
CPT/HCPCS: 36415; 80053; 80061; 81001; 82306; 83036; 84439; 84443; 85025; 87086

== ENCOUNTER 2024-08-12 13:23 | Outpatient (AMB) | payer MEDICARE, OTHER, SELFPAY ==
[2024-08-12 13:26] VITALS: BP 112/66; PULSE 89; O2SAT 99; BMI 31.5
--- NOTE | 2024-08-12 13:26 | MHC.PC.OV ---
Vital Signs 08/12/24 13:26 Height 5 ft 6 in Weight 195 lb BMI 31.5 BP 112/66 Blood Pressure Location Lt brachial Position Sitting Pulse 89 Pulse Source Pulse Oximeter Pulse Oximetry (%) 99 Oxygen Delivery Method Room Air Intake Visit Reasons: 6mth f/u Computer Drafter Required: No Accompanied by: Self / Same As Patient Allergies bupropion [From Wellbutrin] Allergy (Mild, Verified 08/12/24 13:48) Stomach Upset peanut Allergy (Mild, Verified 08/12/24 13:48) Nasal congestion Sulfa (Sulfonamide Antibiotics) [SULFA(SULFONAMIDE ANTIBIOTICS)] Allergy (Unknown, Verified 08/12/24 13:48) PETICHIA, petecchiae Dairy Allergy (Mild, Uncoded 08/12/24 13:48) Abdominal Pain mushroom , wine Allergy (Unknown, Uncoded 08/12/24 13:48) Unknown Medication List - Last Reconciled 08/12/24 by Nehemias Gonzáles MD amitriptyline 20 mg PO BEDTIME vassnhasrr-xorvsblvsqihv-udlx 50-325-40 mg 1 tab PO Q4-6H PRN 30 days citalopram 10 mg PO DAILY fluticasone propionate 50 mcg/actuation 1 spray intranasal DAILY ibuprofen 600 mg PO TID PRN levothyroxine 50 mcg PO DAILY lisinopril 10 mg PO DAILY loratadine (Claritin) 10 mg PO DAILY omeprazole 20 mg PO DAILY 90 days simvastatin 5 mg PO BEDTIME topiramate 50 mg PO BEDTIME Tobacco use date assessed: 08/12/24 Fall risk assessment: 2 + Falls in past year Last assessed Fall Risk: 08/12/24 Dental Screening Dental Screen Date: 08/12/24 Did you have a dental visit in the last 12 months?: Yes Did you have a dental problem in the last 6 months where you did not have access to dental care?: No Was dental information given to patient?: Patient has dentist HPI 6mth f/u HPI Details Patient comes in today for her follow up visit States that she feels okay but notes that her legs are still bothering her a lot, especially her left leg She denies any headaches or dizziness Denies any chest pains, no increased SOB No nausea/vomiting, no abdominal pain No change in bowel habits noted She had her follow up labs done a couple of days ago - to discuss her results [facility] Medical History (Updated 08/12/24 @ 14:34 by Nehemias Gonzáles MD) Insomnia Basal cell carcinoma of left side of nose Headache Obesity (BMI 30-39.9) Depression Anxiety GERD without esophagitis Allergic rhinitis Impaired fasting glucose Migraine Acquired hypothyroidism Benign essential hypertension Pure hypercholesterolemia Surgical History History of surgery History of eye surgery Hx of mastoidectomy History of cataract surgery History of carpal tunnel release History of open reduction and internal fixation (ORIF) procedure Family History Father CVD (cardiovascular disease) Mother Esophageal cancer Daughter In good health Social History Housing: House Alcohol intake: never Patient Tobacco Use Status: Former Tobacco user e-Cigarette/Vaping Use: Never Used Second Hand Smoke Exposure: Yes service: No Current occupational status: retired Cognitive needs: No Hearing needs: Yes Vision needs: Yes Questionnaire PHQ-9 Over the last 2 weeks, how often have you been bothered by any of the following problems? 1. Little interest or pleasure in doing things: not at all 2. Feeling down, depressed, or hopeless: not at all 3. Trouble falling or staying asleep, or sleeping too much: not at all 4. Feeling tired or having little energy: not at all 5. Poor appetite or overeating: not at all 6. Feeling bad about yourself - or that you are a failure or have let yourself or your family down: not at all 7. Trouble concentrating on things, such as reading the newspaper or watching television: not at all 8. Moving or speaking so slowly that other people could have noticed. Or the opposite - being so fidgety or restless that you have been moving around a lot more than usual: not at all 9. Thoughts that you would be better off or of hurting yourself in some way: not at all Total score: 0 Depression Screening Interpretation: Negative Depression Screening Done: Yes 32279 - PHQ-9 Billing: Yes Source: Developed by Drs. Iban Cui, Tere B.WMonster Schwab and colleagues, with an educational bud from [employer]. Thrive Questionnaire Date Thrive assessed: 08/12/24 I am a: Patient What is your living situation today?: I have a steady place to live Within the past 12 months, did the food you bought not last and you didn't have the money to get more?: Never true Within the past 12 months, did you worry whether your food would run out before you got money to buy more?: Never true Do you have trouble paying for medicines?: No Do you have trouble getting transportation to medical appointments?: No Do you have trouble paying your heating and electricity bill?: No Do you have trouble taking care of your child, family member or friend?: No Do you have trouble with day-to-day activities such as bathing, preparing meals, shopping, managing finances, etc.?: No Are you currently unemployed and looking for a job?: No Are you interested in more education?: No Please select the resources that you would like help with: None Currently or been in a relationship where the following occur: No concerns reported THRIVE Score: 0 AUDIT C Alcohol Use Questionnaire (AUDIT-C) 1. How often do you have a drink containing alcohol?: Never 3. How often do you have six or more drinks on one occasion?: Never Total Score: 0 Score Reviewed/Action Taken: Yes MEHRAN-7 AMB Questionnaire MEHRAN-7 Date MEHRAN - 7 assessed: 08/12/24 Feeling nervous, anxious, or on edge: 0 = Not at all Not being able to stop or control worryin = Not at all Worrying too much about different things: 0 = Not at all Trouble relaxin = Not at all Being so restless that it is hard to sit still: 0 = Not at all Becoming easily annoyed or irritable: 0 = Not at all Feeling afraid as if something awful might happen: 0 = Not at all Total MEHRAN-7 score (0-4 normal; 5-9 mild; 10-14 moderate; 15-21 severe): 0 Source: Developed by Drs. Iban Cui, Monster Dimas and colleagues, with an educational bud from [employer]. Review of Systems Const Denies chills, Reports difficulty sleeping, Denies fatigue, Denies fever(s) and Denies headache(s) ENT Denies dysphagia, Denies dizziness, Denies otalgia, Denies headache(s), Denies neck pain, Denies odynophagia and Denies sore throat Card Denies chest pain, Denies palpitations and Denies dyspnea Resp Denies chest congestion, Denies cough and Denies dyspnea GI Denies abdominal pain, Denies constipation, Denies dysphagia, Denies heartburn, Denies diarrhea, Denies nausea, Denies odynophagia and Denies vomiting Denies difficulty voiding, Denies nocturia, Denies dysuria and Denies urinary urgency Musc Denies back pain, Reports arthralgias (left knee and left leg) and Denies neck pain Skin/Breast Denies rash Neuro Denies dizziness and Denies headache(s) Psych Reports anxiety Endo Denies fatigue and Denies palpitations Physical exam (Primary Care) Vital Signs: Last Vital Signs Pulse 89 08/12/24 13:26 BP 112/66 08/12/24 13:26 Pulse Ox 99 08/12/24 13:26 Oxygen Delivery Method Room Air 08/12/24 13:26 BMI result Body Mass Index 31.5 Tobacco/Smoking Status: Tobacco use Status Tobacco use date assessed 08/12/24 08/12/24 13:33 Patient Tobacco Use Status Former Tobacco user 08/12/24 13:33 e-Cigarette/Vaping Use Never Used 08/12/24 13:33 PHQ-9: PHQ-9 Score PHQ-9: Total score 0 08/12/24 14:34 Depression Screening Interpretation: Negative Thrive Assessment: Date of Thrive Assessment Date Thrive assessed 08/12/24 08/12/24 13:33 Currently or been in a relationship where the following occur: No concerns reported Const General: no acute distress and alert HENMT Ears: TM's normal bilaterally and EAC's normal Throat: Yes posterior oropharynx normal and Yes tonsils normal (no TP congestion noted) Neck Neck: Yes supple and No lymphadenopathy Thyroid: Thyroid normal Resp Auscultation: clear to auscultation bilaterally, no rales and no wheezes Cardio Rate: regular rate Rhythm: regular rhythm Heart sounds: no murmurs GI Palpation (GI): Soft to palpation and nontender Auscultation: normal bowel sounds General: Yes no CVA tenderness Back/Spine/Pelvis Back: no CVA tenderness Thoracic/Lumbar Spine: No lumbar spinal tenderness Skin Rashes: no rashes Extrem Other: (+) prominent varicosities on both lower legs, worse on the left leg General: Yes no clubbing, cyanosis or edema Left lower extremity: knee Details: tenderness Location: of the infrapatellar area; no swelling Results Reviewed Results Reviewed: Laboratory Tests 08/10/24 08:21 WBC 6.9 Hgb 14.2 Hct 43.6 Plt Count 218 Sodium 142 Potassium 4.1 Creatinine 1.04 Estimated GFR 52 Fasting Glucose 112 H Hemoglobin A1c % 5.5 Calcium 9.1 AST 27 ALT 28 Triglycerides 124 Cholesterol 186 LDL Cholesterol, Calc 105 H HDL Cholesterol 57 25-OH Vitamin D Total 36.0 TSH 3.87 Free T4 0.92 Ur Specific Roxana 1.015 Urine Protein Negative Urine Glucose (UA) Negative Urine Blood Negative Urine Nitrite Negative Ur Leukocyte Esterase Moderate (2+) H Coding Level of Care Code Est Pt Level 4 (37839) Complex EM visit Add On G2211 Diagnoses Benign essential hypertension I10 Pure hypercholesterolemia E78.00 Acquired hypothyroidism E03.9 Impaired fasting glucose R73.01 Migraine without status migrainosus, not intractable, unspecified migraine type G43.909 Intractability: not intractable Migraine type: unspecified Status migrainosus presence: without status migrainosus 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 Allergic rhinitis, unspecified seasonality, unspecified trigger J30.9 Allergic rhinitis seasonality: unspecified Allergic rhinitis trigger: unspecified GERD without esophagitis K21.9 Varicose veins of bilateral lower extremities with pain I83.813 Insomnia, unspecified type G47.00 Insomnia type: unspecified Anxiety F41.9 Episode of recurrent major depressive disorder, unspecified depression episode severity F33.9 Active/Remission status: currently active Depression Type: major depressive disorder Major depression episode severity: unspecified Major depression recurrence: recurrent Obesity (BMI 30-39.9) E66.9 Additional Codes PHQ-9 - 85514 - PHQ-9 Billing: Yes ([id number]) Assessment & Plan Assessment & Plan (1) Benign essential hypertension: Code(s): I10 - Essential (primary) hypertension Category: Medical Plan: Reinforced low sodium diet - goal is systolic BP of at least 130 to 140 mm or less Continue Lisinopril 10 mg QD Patient is reminded to monitor her blood pressure regularly (2) Pure hypercholesterolemia: Code(s): E78.00 - Pure hypercholesterolemia, unspecified Category: Medical Plan: Results of her labs done a couple of days ago reviewed and discussed with patient Reinforced low cholesterol diet Continue Simvastatin 5 mg Q HS Will recheck her labs and fasting lipids in 6 months for follow up (3) Acquired hypothyroidism: Code(s): E03.9 - Hypothyroidism, unspecified Category: Medical Plan: Her TFTs were normal on her recent labs Continue Levothyroxine 50 mcg QD Will continue to monitor her TFTs regularly (4) Impaired fasting glucose: Code(s): R73.01 - Impaired fasting glucose Category: Medical Plan: Her FBS was slightly elevated at 112 mg/dl but her HgbA1c was normal at 5.5% on her recent labs done a couple of days ago Reinforced low calorie/low carb diet (5) Migraine: Code(s): G43.909 - Migraine, unspecified, not intractable, without status migrainosus Category: Medical Qualifiers: Intractability: not intractable Migraine type: unspecified Status migrainosus presence: without status migrainosus Qualified Code(s): G43.909 - Migraine, unspecified, not intractable, without status migrainosus Plan: Patient was diagnosed with migraine by neurology about 3 years ago MRI of the brain done a couple of years ago came out normal although it did show incidentally a left maxillary sinus cyst and patient has been seeing ENT for this States that her headaches have improved a lot since she was started on prophylactic Tx with Topiramate 50 mg Q HS and Amitriptyline 20 mg Q HS Reinforced avoidance of all potential migraine triggers Continue Fioricet PRN for symptomatic relief Follow up with neurology as scheduled (6) Maxillary sinus cyst: Code(s): J34.1 - Cyst and mucocele of nose and nasal sinus Category: Medical Plan: This was seen incidentally on a head CT done a couple of years ago Patient was seen by ENT for evaluation and was advised no intervention at this time and recommended to just continue observation Follow up with ENT as scheduled (7) Allergic rhinitis: Code(s): J30.9 - Allergic rhinitis, unspecified Category: Medical Qualifiers: Allergic rhinitis seasonality: unspecified Allergic rhinitis trigger: unspecified Qualified Code(s): J30.9 - Allergic rhinitis, unspecified Plan: Continue OTC Loratadine 10 mg QD PRN and Fluticasone nasal spray 50 mcg 1 spray into each nostril QD PRN (8) GERD without esophagitis: Code(s): K21.9 - Gastro-esophageal reflux disease without esophagitis Category: Medical Plan: Dietary restrictions reinforced Continue Omeprazole 20 mg QD PRN (9) Varicose veins of bilateral lower extremities with pain: Code(s): I83.813 - Varicose veins of bilateral lower extremities with pain Category: Medical Plan: Will refer her to vascular surgery for further evaluation and management (10) Insomnia: Code(s): G47.00 - Insomnia, unspecified Category: Medical Qualifiers: Insomnia type: unspecified Qualified Code(s): G47.00 - Insomnia, unspecified Plan: Sleep hygiene discussed Patient has indicated her reluctance to take any prescription Rx to help her sleep in the past and continues to do so Have advised her that she can at least try some OTC Melatonin Q HS PRN to help her get some sleep at night (11) Anxiety: Code(s): F41.9 - Anxiety disorder, unspecified Category: Medical Plan: Patient states that her Citalopram is still helping with her anxiety (12) Depression: Code(s): F32.9 - Major depressive disorder, single episode, unspecified Category: Medical Qualifiers: Active/Remission status: currently active Depression Type: major depressive disorder Major depression episode severity: unspecified Major depression recurrence: recurrent Qualified Code(s): F33.9 - Major depressive disorder, recurrent, unspecified Plan: Continue Citalopram 20 mg QD (13) Obesity (BMI 30-39.9): Code(s): E66.9 - Obesity, unspecified Category: Medical Plan: Reinforced diet/exercise as tolerated/lose weight Plan Follow up in 6 months Orders: Orders Complete Blood Count Auto Diff 6 Months D64.9 - Anemia, unspecified Lipid Panel 6 Months E78.00 - Pure hypercholesterolemia, unspecified TSH reflex Free T4 6 Months E78.00 - Pure hypercholesterolemia, unspecified Comprehensive [place]. Panel Fast 6 Months E78.00 - Pure hypercholesterolemia, unspecified UA CC w/rflx Micro + Cult 6 Months R30.0 - Dysuria Referrals Vascular Surgery Referral I83.813 - Varicose veins of bilateral lower extremities with pain
== END 2024-08-12 14:02 | disposition home or self-care (01) ==
LOC: HO.HMCH 13:23
PROVIDERS: PCP Internal Medicine; Visit Provider Internal Medicine
DX: I10 Essential (primary) hypertension (principal); E78.00 Pure hypercholesterolemia, unspecified; E03.9 Hypothyroidism, unspecified; F33.9 Major depressive disorder, recurrent, unspecified; R73.01 Impaired fasting glucose; G43.909 Migraine, unspecified, not intractable, without status migrainosus; J34.1 Cyst and mucocele of nose and nasal sinus; J30.9 Allergic rhinitis, unspecified; K21.9 Gastro-esophageal reflux disease without esophagitis; I83.813 Varicose veins of bilateral lower extremities with pain; G47.00 Insomnia, unspecified; F41.9 Anxiety disorder, unspecified

== ENCOUNTER → 2024-08-12 13:23 | Outpatient (BNVA) | payer MEDICARE, OTHER, SELFPAY | PROVIDERS: PCP Internal Medicine; Visit Provider Internal Medicine | DX: I10 Essential (primary) hypertension (principal); E78.00 Pure hypercholesterolemia, unspecified; R73.01 Impaired fasting glucose; G43.909 Migraine, unspecified, not intractable, without status migrainosus; J34.1 Cyst and mucocele of nose and nasal sinus; J30.9 Allergic rhinitis, unspecified; K21.9 Gastro-esophageal reflux disease without esophagitis; I83.813 Varicose veins of bilateral lower extremities with pain; F41.9 Anxiety disorder, unspecified; F33.9 Major depressive disorder, recurrent, unspecified; E66.9 Obesity, unspecified; Z68.31 Body mass index [BMI] 31.0-31.9, adult; Z71.3 Dietary counseling and surveillance | CPT/HCPCS: 96127; 99212 ==

== ENCOUNTER 2024-08-20 15:12 | Outpatient (AMB) | payer MEDICARE, OTHER, SELFPAY ==
--- NOTE | 2024-08-20 15:18 | MHC.OFFVIS ---
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 Patient states her left leg is worse. Had veins stripped in 2008. Patient feels aches and zaps more so at night. Accompanied by: Self / Same As Patient Allergies bupropion [From Wellbutrin] Allergy (Mild, Verified 08/20/24 15:24) Stomach Upset peanut Allergy (Mild, Verified 08/20/24 15:24) Nasal congestion Sulfa (Sulfonamide Antibiotics) [SULFA(SULFONAMIDE ANTIBIOTICS)] Allergy (Unknown, Verified 08/20/24 15:24) PETICHIA, petecchiae Dairy Allergy (Mild, Uncoded 08/12/24 13:48) Abdominal Pain mushroom , wine Allergy (Unknown, Uncoded 08/12/24 13:48) Unknown HPI HPI APPLICATIONS ARCHITECT/ PCP referral for VV: Details: Very pleasant 69-year-old female patient presents for painful varicose veins. Complaints include pain over varicosities, swelling of lower extremities, cramping, fatigue, and heaviness of the lower extremities. 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 It is noted more so in left leg. Patient reports prior surgery in [address] Tanner at [facility]. It is unclear if a stripping or microphlebectomy was done. She does report it was done in the office and was quite painful. Patient denies any history of DVT/ PE. Patient denies any history of phlebitis. Trial of compression includes - prescription compression which she has been using on and off since 2008. New prescription was given to her They now present for vascular evaluation regarding their varicose veins. [facility] Medical History Insomnia Basal cell carcinoma of left side of nose Headache Obesity (BMI 30-39.9) Depression Anxiety GERD without esophagitis Allergic rhinitis Impaired fasting glucose Migraine Acquired hypothyroidism Benign essential hypertension Pure hypercholesterolemia Surgical History History of surgery History of eye surgery Hx of mastoidectomy History of cataract surgery History of carpal tunnel release History of open reduction and internal fixation (ORIF) procedure Family History Father CVD (cardiovascular disease) Mother Esophageal cancer Daughter In good health Social History Housing: House Alcohol intake: never Patient Tobacco Use Status: Former Tobacco user e-Cigarette/Vaping Use: Never Used Second Hand Smoke Exposure: Yes service: No Current occupational status: retired Cognitive needs: No Hearing needs: Yes Vision needs: Yes Review of Systems Const Reports as per HPI ENT Reports no additional complaints Card Denies chest pain, Denies chest pain at rest and Denies chest pain with activity Resp Denies chest congestion and Denies cough GI Reports no additional complaints Musc Details: pain over varicosities, aching of lower extremities, swelling, cramping, heaviness and tiredness, itching Denies abnormal gait Skin/Breast Reports pruritus and Denies wounds Neuro Reports no additional complaints and Denies abnormal gait Psych Denies no additional complaints Physical Exam Const General: cooperative, healthy appearing and comfortable Orientation/consciousness: oriented to person, oriented to place and oriented to time Neck Carotids: no bruits Chest Chest palpation & inspection: normal inspection of the chest and normal palpation of entire chest wall Resp Effort & Inspection: normal respiratory effort and able to speak in complete sentences Cardio Rate: regular rate Heart sounds: S1 normal heart sound present and S2 normal heart sound present Peripheral pulses: Peripheral pulses 2+ throughout GI Inspection: Yes normal to inspection Skin Other: +2 edema, large rope-like varicosities greater than 4 mm left thigh and calf CEAP Classification C4 - skin color changes Ep - Etiology Primary As - superficial veins P - reflux General skin exam: dry skin Neuro General: oriented to person, oriented to place and oriented to time Extrem Right lower extremity: full ROM, normal capillary refill and edema Left lower extremity: full ROM, normal capillary refill and edema Psych Mental Status: mental status grossly normal Assessment & Plan Assessment & Plan (1) Varicose veins of left lower extremity with inflammation: Code(s): I83.12 - Varicose veins of left lower extremity with inflammation Category: Medical Plan: In short, the patient has evidence of venous insufficiency. I have discussed the pathophysiology with the patient. In addition I have provided informational material regarding venous disease to the patient. We have discussed conservative measures including compression, elevation, and exercise. I have also provided a handout regarding appropriate use of compression stockings and where to purchase good compression stockings as well. I have taken the liberty of ordering venous insufficiency testing with the patient. They will follow up with me after testing. The patient had an opportunity to ask questions regarding the treatment plan. All questions were answered. Imaging studies, laboratory studies and physical exam results were discussed and reviewed in detail. No major barriers to understanding were identified. The patient expressed understanding and agreement with the above treatment plan. The patient is aware they should contact our office by phone for worsening of the current condition or the appearance of new symptoms. Thank you for allowing me to participate in the vascular care of this patient. If you have any questions or concerns regarding the treatment for the above condition please do not hesitate to contact me. The office telephone contact is [phone]. This note is constructed using voice recognition software. While every effort has been made to ensure accuracy, corporate compliance manager errors may have been included. Thank you for allowing me to participate in the care of your patient. Yours sincerely, Raffaele Perez MD, FACS, R.P.V.I. Plan Patient was informed and verbally consented to the use of an ambient scribe for clinic note documentation during this visit. Orders: Orders US venous duplex LE BI 1 Week I83.12 - Varicose veins of left lower extremity with inflammation Patient Instructions: - Wear compression stockings daily and ensure they are properly fitted. - Elevate legs when sitting to minimize swelling. - Maintain regular walking to aid circulation. - Schedule and complete the venous ultrasound as planned. - Follow up after the ultrasound to discuss results and treatment options. Coding Level of Care Code New Pt Level 4 (74126) Complex EM visit Add On G2211 Diagnoses Varicose veins of left lower extremity with inflammation I83.12
== END 2024-08-20 16:22 | disposition home or self-care (01) ==
LOC: HO.HVS 15:13
PROVIDERS: PCP Internal Medicine; Visit Provider Surgery Vascular Surgery
DX: I83.12 Varicose veins of left lower extremity with inflammation (principal)
CPT/HCPCS: 99204; G2211

== ENCOUNTER → 2024-08-20 15:12 | Outpatient (BNVA) | payer MEDICARE, OTHER, SELFPAY | PROVIDERS: PCP Internal Medicine; Visit Provider Surgery Vascular Surgery | DX: I83.12 Varicose veins of left lower extremity with inflammation (principal) | CPT/HCPCS: 99202 ==

== ENCOUNTER 2024-09-09 07:48 | Outpatient (REF) | payer MEDICARE, OTHER, SELFPAY ==
--- NOTE | ~2024-09-09 | US_ITS ---
EXAMINATION: US LOWER EXTREMITY VENOUS (REFLUX EXAM), BILATERAL CLINICAL INFORMATION: Varices. Status post removal left great saphenous vein. COMPARISON: None. TECHNIQUE: Color flow triplex imaging and compression Doppler was performed to evaluate both the deep and the superficial systems bilaterally. To evaluate the superficial system, the examination was performed in the upright position. Color-flow Doppler ultrasound and compression ultrasound were utilized. In addition, maneuvers were utilized to demonstrate reflux. FINDINGS: 1. DEEP VENOUS ULTRASOUND OF THE RIGHT LOWER EXTREMITY: Common Femoral Vein: Compressible, normal respiratory variation and augmented flow. Femoral Vein: Compressible, normal color flow and augmentation. Popliteal Vein: Compressible, normal augmentation. Deep Reflux: There is no evidence of reflux in the deep system in either the common femoral vein, superficial femoral or the popliteal vein. There is no evidence of a Nava's cyst. 2. SUPERFICIAL ULTRASOUND WITH DOPPLER OF RIGHT LOWER EXTREMITY: GREAT SAPHENOUS VEIN: Saphenofemoral Junction: 0.5 cm; Reflux: 0 ms Proximal Thigh: 0.5 cm; Reflux: 0 ms Mid Thigh: 0.3 cm; Reflux: 0 ms Distal Thigh: 0.3 cm; Reflux: 868 ms At Knee: 0.3 cm; Reflux: 2960 ms Proximal Calf: 0.2 cm; Reflux: 2224 ms Mid Calf: 0.2 cm; Reflux: 0 ms Distal Calf: 0.2 cm; Reflux: 0 ms DUPLICATED MEDIAL GREAT SAPHENOUS VEIN: Diameter: None imaged Reflux: NA DUPLICATED LATERAL GREAT SAPHENOUS VEIN: Diameter: 0.4 cm. Reflux: NA SMALL SAPHENOUS VEIN: Saphenopopliteal Junction: 0.2 cm; Reflux: 0 ms Proximal: 0.1 cm; Reflux: 0 ms Distal: 0.2 cm; Reflux: 0 ms VEIN OF GIACOMINI: Size: 0.3 cm. Reflux: NA PERFORATORS: Location: Mid calf. Size: 0.2 cm. Reflux: NA VARICOSITIES: Location: Distal thigh Size: 0.3 cm. Reflux: NA 3. DEEP VENOUS ULTRASOUND OF THE LEFT LOWER EXTREMITY: Common Femoral Vein: Compressible, normal respiratory variation and augmented flow. Femoral Vein: Compressible, normal color flow and augmentation. Popliteal Vein: Compressible, normal augmentation. Deep Reflux: There is no evidence of reflux in the deep system in either the common femoral vein, superficial femoral or the popliteal vein. There is no evidence of a Nava's cyst. 4. SUPERFICIAL ULTRASOUND WITH DOPPLER OF LEFT LOWER EXTREMITY: GREAT SAPHENOUS VEIN: Saphenofemoral Junction: 0.7 cm; Reflux: 0 ms Proximal Thigh: 0.3 cm; Reflux: 0 ms Distal Calf: 0.2 cm; Reflux: 0 ms DUPLICATED MEDIAL GREAT SAPHENOUS VEIN: Diameter: None imaged Reflux: NA DUPLICATED LATERAL GREAT SAPHENOUS VEIN: Diameter: 0.6 cm. Reflux: 2728 ms. SMALL SAPHENOUS VEIN: Saphenopopliteal Junction: 0.2 cm; Reflux: 0 ms Proximal: 0.2 cm; Reflux: 0 ms Distal: 0.1 cm; Reflux: 0 ms VEIN OF GIACOMINI: Size: NA Reflux: NA PERFORATORS: Location: Mid and distal calf. Size: 0.2-0.4 cm. Reflux: 840 ms in the mid calf. VARICOSITIES: Location: Mid to distal thigh. At the knee to the mid calf. Size: 0.3-0.8 cm. Reflux: 672 ms-3096 ms range US/US venous insuf bilat IMPRESSION: Right: Venous insufficiency, great saphenous vein from above the knee to below the knee. Varices without reflux in the distal thigh. Left: Venous insufficiency in the accessory lateral great saphenous vein. Varices with reflux from the mid thigh to the mid calf. Perforators in the distal calf with reflux. Electronically signed by: Yaw Pierce MD 09/09/2024 03:10 PM EDT
== END 2024-09-09 07:49 | disposition home or self-care (01) ==
LOC: HO.US 07:48
PROVIDERS: PCP Internal Medicine; Visit Provider Surgery Vascular Surgery
DX: I83.12 Varicose veins of left lower extremity with inflammation (principal)
CPT/HCPCS: 93970

== ENCOUNTER → 2024-09-09 07:50 | Outpatient (BNV) | payer MEDICARE, OTHER, SELFPAY | PROVIDERS: PCP Internal Medicine; Visit Provider Radiology Diagnostic Radiology | DX: I83.811 Varicose veins of right lower extremity with pain (principal) | CPT/HCPCS: 93970 ==

== ENCOUNTER 2024-09-15 14:13 | Outpatient (AMB) | payer MEDICARE, OTHER, SELFPAY ==
[2024-09-15 14:22] VITALS: BMI 31.5
--- NOTE | 2024-09-15 14:22 | MHC.OFFVIS ---
Vital Signs 09/15/24 14:22 Height 5 ft 6 in Weight 195 lb BMI 31.5 Intake Visit Reasons: follow up s/p US 09/09/24 Intake Note: follow up 09/09/24 for VV, Left LE worse than Right LE. Pt states Left LE has hx of vein stripping in 2008 Disaster Or Damage Control Specialist Required: No Accompanied by: Self / Same As Patient Allergies bupropion [From Wellbutrin] Allergy (Mild, Verified 09/15/24 14:23) Stomach Upset peanut Allergy (Mild, Verified 09/15/24 14:23) Nasal congestion Sulfa (Sulfonamide Antibiotics) [SULFA(SULFONAMIDE ANTIBIOTICS)] Allergy (Unknown, Verified 09/15/24 14:23) PETICHIA, petecchiae Dairy Allergy (Mild, Uncoded 09/15/24 14:23) Abdominal Pain mushroom , wine Allergy (Unknown, Uncoded 09/15/24 14:23) Unknown HPI HPI follow up s/p 09/09/24: Details: Very pleasant 69-year-old female presents for follow-up regarding venous insufficiency. She actually had prior left lower extremity interventions done in [address] Tanner at [facility]. It appears that it was more of a stripping of the left lower extremity. She has recurrent venous issues including swelling discomfort tired heavy legs an in particular inflammation of the varicosities in her left calf. She now presents for follow-up with venous insufficiency testing. [facility] Medical History Insomnia Basal cell carcinoma of left side of nose Headache Obesity (BMI 30-39.9) Depression Anxiety GERD without esophagitis Allergic rhinitis Impaired fasting glucose Migraine Acquired hypothyroidism Benign essential hypertension Pure hypercholesterolemia Surgical History History of surgery History of eye surgery Hx of mastoidectomy History of cataract surgery History of carpal tunnel release History of open reduction and internal fixation (ORIF) procedure Family History Father CVD (cardiovascular disease) Mother Esophageal cancer Daughter In good health Social History Housing: House Alcohol intake: never Patient Tobacco Use Status: Former Tobacco user e-Cigarette/Vaping Use: Never Used Second Hand Smoke Exposure: Yes service: No Current occupational status: retired Cognitive needs: No Hearing needs: Yes Vision needs: Yes Review of Systems Const Reports as per HPI ENT Reports no additional complaints Card Denies chest pain, Denies chest pain at rest and Denies chest pain with activity Resp Denies chest congestion and Denies cough GI Reports no additional complaints Musc Details: pain over varicosities, aching of lower extremities, swelling, cramping, heaviness and tiredness, itching Denies abnormal gait Skin/Breast Reports pruritus and Denies wounds Neuro Reports no additional complaints and Denies abnormal gait Psych Denies no additional complaints Physical Exam Vital Signs: BMI result Body Mass Index 31.5 Const General: cooperative, healthy appearing and comfortable Orientation/consciousness: oriented to person, oriented to place and oriented to time Neck Carotids: no bruits Chest Chest palpation & inspection: normal inspection of the chest and normal palpation of entire chest wall Resp Effort & Inspection: normal respiratory effort and able to speak in complete sentences Cardio Rate: regular rate Heart sounds: S1 normal heart sound present and S2 normal heart sound present Peripheral pulses: Peripheral pulses 2+ throughout GI Inspection: Yes normal to inspection Skin Other: +2 edema, large rope-like varicosities greater than 4 mm left calf CEAP Classification C4 - skin color changes Ep - Etiology Primary As - superficial veins P - reflux General skin exam: dry skin Neuro General: oriented to person, oriented to place and oriented to time Extrem Right lower extremity: full ROM, normal capillary refill and edema Left lower extremity: full ROM, normal capillary refill and edema Psych Mental Status: mental status grossly normal Results Reviewed Results Reviewed: Brief summary of venous insufficiency testing is as follows: right great saphenous vein: Positive at knee right small saphenous vein: negative right accessory vein: none present left great saphenous vein: negative left small saphenous vein: negative left accessory vein: none present Please note there is no evidence of any venous aneurysms or significant tortuosity Assessment & Plan Assessment & Plan (1) Varicose veins of left lower extremity with inflammation: Code(s): I83.12 - Varicose veins of left lower extremity with inflammation Category: Medical Plan: This patient has varicose veins with inflammation. They continue to be a source of discomfort for the patient. The patient has tried conservative treatment with compression, leg elevation and exercise program for over 3 months time. They have been compliant with all treatment. This has provided minimal relief for the patient. I do not anticipate this course of treatment will alter the underlying etiology. The patient has been scheduled for lower extremity venous treatment inclusive of --- left leg microphlebectomy. Risks, benefits, and complications of this procedure has been discussed in detail with the patient including but not limited to bleeding, infection, and the development of a DVT. The patient has demonstrated a clear understanding and has consented. We will schedule the patient as soon as possible. Thank you for allowing us to participate in this patient's care. If there are any questions or concerns please do not hesitate to contact us. Coding Level of Care Code Est Pt Level 4 (53128) Diagnoses Varicose veins of left lower extremity with inflammation I83.12
== END 2024-09-15 15:03 | disposition home or self-care (01) ==
LOC: HO.HVS 14:14
PROVIDERS: PCP Internal Medicine; Visit Provider Surgery Vascular Surgery
DX: I83.12 Varicose veins of left lower extremity with inflammation (principal)
CPT/HCPCS: 99214

== ENCOUNTER → 2024-09-15 14:13 | Outpatient (BNVA) | payer MEDICARE, OTHER, SELFPAY | PROVIDERS: PCP Internal Medicine; Visit Provider Surgery Vascular Surgery | DX: I83.12 Varicose veins of left lower extremity with inflammation (principal) | CPT/HCPCS: 99212 ==

== ENCOUNTER 2024-09-26 16:35 | Outpatient (REF) | payer MEDICARE, OTHER, SELFPAY ==
--- NOTE | ~2024-09-26 | MR_ITS ---
EXAMINATION: MR BRAIN /IAC WITHOUT AND WITH CONTRAST CLINICAL INFORMATION: Left acoustic neuroma. COMPARISON: None available. TECHNIQUE: Multiplanar, multisequence MRI of the brain and IACs was obtained before and after the intravenous administration of 9 mL Gadavist. Examination performed on a 1.5 Teresa high-field Siemens unit, utilizing standard sequences for IAC protocol. FINDINGS: IACs: There has been a prior canal wall up mastoidectomy. No signal abnormality is present in the mastoid bowl. There is mild T2 hyperintensity within the residual left mastoid air cells. There is no signal abnormality within the expected region of the tympanic space. The right mastoids demonstrate no signal abnormality or abnormal enhancement. There is otherwise normal CSF signal within the IACs, prepontine cistern, CP angle cisterns, and labyrinthine structures. The 7th and 8th cranial nerves have normal course and caliber. There is no evidence of mass or abnormal contrast enhancement to suggest acoustic schwannoma. Meckel's caves have normal signal. The 5th nerves are normal in caliber without abnormal enhancement. The 3rd cranial nerves, 4th cranial nerves, 6th cranial nerves, and 9th cranial nerves are normal in course and caliber without abnormal enhancement. IMAGED BRAIN: There is no diffusion restriction. There is no intracranial hemorrhage or extra-axial fluid collection. Ventricles, sulci, and cisterns are normal in size configuration for patient age. There is no shift of midline. Basal cisterns are patent. There are a few scattered tiny foci of T2 signal hyperintensity within the periventricular and supratentorial hemispheric white matter. These foci are nonspecific but most likely relate to minimal changes of small vessel ischemia. No morphology or distribution suggestive of demyelination. No abnormal intra or extra axial enhancement identified. Midline structures appear normally formed. The pituitary gland appears normal. Posterior fossa structures appear normal. Cerebellar tonsils are appropriately located. Major flow voids are preserved within the skull base. The globes and orbital contents demonstrate no abnormalities. Paranasal sinuses demonstrate no significant opacification. There is mild mucosal thickening in the dependent left maxillary sinus. There is a tiny air-fluid level in the left sphenoid sinus. The right mastoid and tympanic cavity are normally aerated. Extracranial soft tissues demonstrate no abnormalities. No suspicious bone marrow changes are evident. Atlantoaxial joint is demonstrates moderate degenerative changes. There are mild degenerative changes in both TM joints. MR/MR head/brain wo/w con IMPRESSION: 1. There is no evidence of acoustic schwannoma or abnormal signal or enhancement in the IAC's, CP angle cisterns, prepontine cistern, or labyrinthine structures. 2. There has been a left-sided canal wall up mastoidectomy. There is a small amount of fluid remaining in the residual mastoid air cells. There is no abnormality of the mastoid bowl. 3. There are minimal changes of small vessel ischemia. 4. No abnormal intra or extra-axial parenchymal enhancement. Electronically signed by: Marlon Elise MD 09/28/2024 10:31 AM EDT
[2024-09-26] MEDS: gadobutroL 10 ML VIAL IVPUSH (17:33)
== END 2024-09-26 16:36 | disposition home or self-care (01) ==
LOC: HO.MRI 16:35
PROVIDERS: PCP Internal Medicine; Visit Provider Otolaryngology
DX: D33.3 Benign neoplasm of cranial nerves (principal)
CPT/HCPCS: 70553; A9585

== ENCOUNTER → 2024-09-26 16:55 | Outpatient (BNV) | payer MEDICARE, OTHER, SELFPAY | PROVIDERS: PCP Internal Medicine; Visit Provider Radiology Diagnostic Radiology | DX: H74.8X2 Other specified disorders of left middle ear and mastoid (principal); H95.192 Other disorders following mastoidectomy, left ear | CPT/HCPCS: 70553 ==

== ENCOUNTER 2024-10-02 07:14 | Outpatient (AMB) | payer MEDICARE, OTHER, SELFPAY ==
--- NOTE | 2024-10-02 07:44 | A.OFFVIS_ITS ---
Vital Signs 10/02/24 07:46 Height 5 ft 6 in Weight 195 lb BMI 31.5 Intake Visit Reasons: Left Leg Microphlebectomy Payroll Analyst Required: No Accompanied by: Self / Same As Patient Allergies bupropion [From Wellbutrin] Allergy (Mild, Verified 10/02/24 07:46) Stomach Upset peanut Allergy (Mild, Verified 10/02/24 07:46) Nasal congestion Sulfa (Sulfonamide Antibiotics) [SULFA(SULFONAMIDE ANTIBIOTICS)] Allergy (Unknown, Verified 10/02/24 07:46) PETICHIA, petecchiae Dairy Allergy (Mild, Uncoded 10/02/24 07:46) Abdominal Pain mushroom , wine Allergy (Unknown, Uncoded 10/02/24 07:46) Unknown [facility] Medical History Insomnia Basal cell carcinoma of left side of nose Headache Obesity (BMI 30-39.9) Depression Anxiety GERD without esophagitis Allergic rhinitis Impaired fasting glucose Migraine Acquired hypothyroidism Benign essential hypertension Pure hypercholesterolemia Surgical History History of surgery History of eye surgery Hx of mastoidectomy History of cataract surgery History of carpal tunnel release History of open reduction and internal fixation (ORIF) procedure Family History Father CVD (cardiovascular disease) Mother Esophageal cancer Daughter In good health Social History Housing: House Alcohol intake: never Patient Tobacco Use Status: Former Tobacco user e-Cigarette/Vaping Use: Never Used Second Hand Smoke Exposure: Yes service: No Current occupational status: retired Cognitive needs: No Hearing needs: Yes Vision needs: Yes Physical Exam Vital Signs: BMI result Body Mass Index 31.5 Office Procedures Vascular Office Procedure Details Details: Diagnosis: Left Leg varicose veins with inflammation Procedure: Left leg Microphlebectomy Anesthesia: Local Infiltration 20 cc, Tumescent: 0 cc. Varicose veins were marked in the standing position on the left leg and the patient was then placed in the supine position. The left lower extremity was prepared and draped to allow knee flexion in the sterile field. The patient had large superficial varicose veins with significant symptoms of pain. It was therefore determined to perform microphlebectomies of the clusters of varicose veins. The patient had bulging varicose veins which were previously marked in the standing position. A small stab incision was made longitudinally directly overlying the varicose vein in the calf and the varicose vein was grasped with a hemostat aided by a vein hook. It was then dissected as far proximally and distally as possible and avulsed. A total of 12 stab incisions were made and the procedure of stab phlebectomies was repeated 12 times. Hemostasis was checked and stab incision sites were closed with steri-strips and sterile dressing was given with gauze and krilex wrap followed by an elsy bandage. There were no complications and blood loss was minimal. Post-Op instructions were given and a follow-up appointment was recommended. 96244 - Stab Phlebectomy >20 All charges added?: Procedure code (CPT) selection complete Assessment & Plan Assessment & Plan (1) Varicose veins of left lower extremity with inflammation: Comment: 10/02/2024 - left leg microphlebectomy Code(s): I83.12 - Varicose veins of left lower extremity with inflammation Category: Medical Plan: See op note Coding Level of Care Code Procedure Only Diagnoses Varicose veins of left lower extremity with inflammation I83.12 CPT Codes Details - Vascular 6: 47025 - Stab Phlebectomy >20 ([id number])
[2024-10-02 07:46] VITALS: BMI 31.5
== END 2024-10-02 08:59 | disposition home or self-care (01) ==
LOC: HO.HVS 07:15
PROVIDERS: PCP Internal Medicine; Visit Provider Surgery Vascular Surgery
DX: I83.12 Varicose veins of left lower extremity with inflammation (principal)
CPT/HCPCS: 37766

== ENCOUNTER → 2024-10-02 07:14 | Outpatient (BNVA) | payer MEDICARE, OTHER, SELFPAY | PROVIDERS: PCP Internal Medicine; Visit Provider Surgery Vascular Surgery | DX: I83.12 Varicose veins of left lower extremity with inflammation (principal) | CPT/HCPCS: 37766; J2003 ==

== ENCOUNTER 2024-10-15 15:26 | Outpatient (AMB) | payer MEDICARE, OTHER, SELFPAY ==
--- NOTE | 2024-10-15 15:28 | MHC.OFFVIS ---
Intake Visit Reasons: Left leg micro follow up Intake Note: Patient presents for left leg micro follow up. No complaints. Accompanied by: Self / Same As Patient Allergies bupropion (From Wellbutrin) Allergy (Mild, Verified 10/15/24 15:29) Stomach Upset peanut Allergy (Mild, Verified 10/15/24 15:29) Nasal congestion Sulfa (Sulfonamide Antibiotics) (SULFA(SULFONAMIDE ANTIBIOTICS)) Allergy (Unknown, Verified 10/15/24 15:29) PETICHIA, petecchiae Dairy Allergy (Mild, Uncoded 10/02/24 07:46) Abdominal Pain mushroom , wine Allergy (Unknown, Uncoded 10/02/24 07:46) Unknown HPI HPI Left leg micro follow up: Details: 69-year-old female presents for routine follow-up regarding microphlebectomy. She reports she did fairly well after the procedure although she did report some discomfort during the procedure. She does have some mild bruising overall no other significant complaints. Notes that the varicosities have decreased in her overall swelling has improved. She now presents for routine postprocedure follow-up. [facility] Medical History Insomnia Basal cell carcinoma of left side of nose Headache Obesity (BMI 30-39.9) Depression Anxiety GERD without esophagitis Allergic rhinitis Impaired fasting glucose Migraine Acquired hypothyroidism Benign essential hypertension Pure hypercholesterolemia Surgical History History of surgery History of eye surgery Hx of mastoidectomy History of cataract surgery History of carpal tunnel release History of open reduction and internal fixation (ORIF) procedure Family History Father CVD (cardiovascular disease) Mother Esophageal cancer Daughter In good health Social History Housing: House Alcohol intake: never Patient Tobacco Use Status: Former Tobacco user e-Cigarette/Vaping Use: Never Used Second Hand Smoke Exposure: Yes service: No Current occupational status: retired Cognitive needs: No Hearing needs: Yes Vision needs: Yes Review of Systems Const All systems reviewed & are unremarkable except as noted in HPI and below Reports no additional complaints ENT Reports Normal hearing present Card Denies chest pain, Denies chest pain at rest, Denies chest pain with activity and Denies pedal edema Resp Denies cough GI Denies abdominal pain Musc Denies abnormal gait, Denies muscle cramps and Denies radiating pain into limb Skin/Breast Denies skin ulcer and Denies wounds Neuro Reports Normal hearing present and Denies abnormal gait Psych Reports no additional complaints Physical Exam Const General: cooperative, healthy appearing and comfortable Orientation/consciousness: oriented to person, oriented to place and oriented to time HEENT Head: Yes normal to inspection Neck Neck: Yes normal visual inspection Carotids: no bruits Chest Chest palpation & inspection: normal inspection of the chest Resp Effort & Inspection: normal respiratory effort and able to speak in complete sentences Auscultation: clear to auscultation bilaterally, no crackles, no rales, no rhonchi and no wheezes Cardio Rate: regular rate Rhythm: regular rhythm Heart sounds: S1 normal heart sound present and S2 normal heart sound present Bruits: no carotid bruits Peripheral pulses: Peripheral pulses 2+ throughout GI Inspection: Yes normal to inspection Skin Wounds: no wounds Hair: normal Neuro General: oriented to person, oriented to place and oriented to time Cranial nerves: Yes CN's II-XII intact bilaterally and Yes Normal hearing present Cognition (Neuro): normal cognition Motor exam (neuro): 5/5 motor strength present throughout Extrem Other: venous exam: No significant superficial varicosities or spider telangiectasias, minimal edema General: No clubbing, No cyanosis and No edema Psych Appearance: grossly normal Mental Status: mental status grossly normal Speech and movement: Normal speech and movement present Assessment & Plan Assessment & Plan (1) Varicose veins of left lower extremity with inflammation: Comment: 10/02/2024 - left leg microphlebectomy Code(s): I83.12 - Varicose veins of left lower extremity with inflammation Category: Medical Plan: The patient has done extremely well with all venous treatments. Patient's may often experience postprocedure phlebitic episodes and I have discussed with the patient use of warm compresses and NSAIDS if tolerated for pain discomfort. In addition, I have discussed continued conservative measures including use of compression, leg elevation, and exercise. The patient was also given an information sheet regarding appropriate use of compression stockings and future purchases. Thank you for allowing us to care for your patient with venous disease. Coding Level of Care Code Est Pt Level 4 (98968) Diagnoses Varicose veins of left lower extremity with inflammation I83.12
== END 2024-10-15 15:44 | disposition home or self-care (01) ==
LOC: HO.HVS 15:26
PROVIDERS: PCP Internal Medicine; Visit Provider Surgery Vascular Surgery
DX: I83.12 Varicose veins of left lower extremity with inflammation (principal)
CPT/HCPCS: 99214

== ENCOUNTER → 2024-10-15 15:26 | Outpatient (BNVA) | payer MEDICARE, OTHER, SELFPAY | PROVIDERS: PCP Internal Medicine; Visit Provider Surgery Vascular Surgery | DX: I83.12 Varicose veins of left lower extremity with inflammation (principal) | CPT/HCPCS: 99212 ==

== ENCOUNTER 2024-12-23 15:11 | Outpatient (AMB) | payer MEDICARE, OTHER, SELFPAY ==
--- NOTE | 2024-12-23 15:17 | MHC.OFFVIS ---
Intake Visit Reasons: 6 month Allergies bupropion (From Wellbutrin) Allergy (Mild, Verified 12/23/24 15:19) Stomach Upset peanut Allergy (Mild, Verified 12/23/24 15:19) Nasal congestion Sulfa (Sulfonamide Antibiotics) (SULFA(SULFONAMIDE ANTIBIOTICS)) Allergy (Unknown, Verified 12/23/24 15:19) PETICHIA, petecchiae Dairy Allergy (Mild, Uncoded 12/23/24 15:19) Abdominal Pain mushroom , wine Allergy (Unknown, Uncoded 12/23/24 15:19) Unknown Medication List - Last Reconciled 12/23/24 by Anastasia Obrien, ROGELIO amitriptyline 20 mg (2 x 10 mg) PO BEDTIME 90 days [id number] 50-325-40 mg 1 tab PO Q4-6H PRN 30 days citalopram 10 mg PO DAILY fluticasone propionate 50 mcg/actuation 1 spray intranasal DAILY ibuprofen 600 mg PO TID PRN levothyroxine 50 mcg PO DAILY lisinopril 10 mg PO DAILY loratadine (Claritin) 10 mg PO DAILY omeprazole 20 mg PO DAILY 90 days simvastatin 5 mg PO BEDTIME topiramate 50 mg PO BEDTIME 90 days HPI Comments Details: She was having some more headaches, almost every day, which she believes may be triggered by foods she was eating. She was eating dairy, like ice cream, more often which she knows triggers migraines. Other migraine triggers include nuts and wine, and less often triggered by weather changes. She was having some trouble sleeping, difficulty falling asleep and staying asleep. She was under some stress related to health of her . Pins and needles sensation in feet is better after starting B complex. Some left leg achiness that comes and goes after falling doing yardwork in 01/2024. [facility] Medical History Insomnia Basal cell carcinoma of left side of nose Headache Obesity (BMI 30-39.9) Depression Anxiety GERD without esophagitis Allergic rhinitis Impaired fasting glucose Migraine Acquired hypothyroidism Benign essential hypertension Pure hypercholesterolemia Surgical History History of surgery History of eye surgery Hx of mastoidectomy History of cataract surgery History of carpal tunnel release History of open reduction and internal fixation (ORIF) procedure Family History Father CVD (cardiovascular disease) Mother Esophageal cancer Daughter In good health Social History Housing: House Alcohol intake: never Patient Tobacco Use Status: Former Tobacco user e-Cigarette/Vaping Use: Never Used Second Hand Smoke Exposure: Yes service: No Current occupational status: retired Cognitive needs: No Hearing needs: Yes Vision needs: Yes Review of Systems Const Denies chills, Denies daytime sleepiness, Reports difficulty sleeping, Denies fatigue, Denies fever(s), Denies frequent falls, Reports headache(s), Denies increased appetite, Denies poor appetite, Denies snoring, Denies weakness, Denies weight gain and Denies weight loss Eyes Denies loss of vision ENT Denies vertigo, Denies dizziness, Reports headache(s) and Denies neck pain Card Denies chest pain at rest, Denies chest pain with activity, Denies syncope, Denies leg edema, Denies palpitations, Denies dyspnea and Denies dyspnea on exertion Resp Denies cough, Denies dyspnea, Denies dyspnea on exertion and Denies snoring GI Denies abdominal pain, Denies constipation, Denies heartburn, Denies diarrhea and Denies nausea Denies urinary frequency, Denies urinary incontinence and Denies urinary urgency Musc Denies abnormal gait, Denies back pain, Denies myalgias, Denies arthralgias, Denies neck pain, Denies numbness and Denies tingling Neuro Denies abnormal gait, Denies vertigo, Denies dizziness, Denies syncope, Denies frequent falls, Reports headache(s), Denies lack of coordination, Denies loss of vision, Denies memory loss, Denies numbness, Denies Other visual disturbances, Denies restless legs, Denies seizure-like activity, Denies tingling, Denies paresthesias, Denies tremor(s) and Denies weakness Psych Denies anxiety, Reports depression, Denies auditory hallucinations, Denies memory loss and Denies visual hallucinations Endo Denies fatigue and Denies palpitations Physical Exam Const Other: General Appearance:? normal, in no acute distress. Heart:? S1, S2 normal, no murmurs. Lungs:? clear anteriorly and posteriorly. Musculoskeletal:? normal. Extremities:? no edema. Psych:? alert, oriented, cognitive function intact, cooperative with exam. Neuro Other: Mental Status:?Normal attention, orientation, memory and affect.? Cranial Nerves:?Pupils are equal, round and reactive to light. External occular muscles are intact. Visual vicente are full. Face is symmetrical. Facial sensations are normal. Tongue is midline. Palate elevates symmetrically. Shoulder shrugging is normal. Hearing to bedside conversation is normal. Sensory Exam:?....? Coordination:?No ataxia,?no titubation.? Gait Exam: Within normal limits. Extrapyramidal System:?No tremor, rigidity with normal facial expressions.? Pronator Drift:?Not present.? Involuntary Movements:?No tremors seen.? Speech:?Normal.? Results Reviewed Results Reviewed: MRI 11/30/20 showed fluid filled in left maxillary sinus and sphenoid sinus and a single non specific left parietal subcortical white matter abnormality. 01/31/22 NCV/EMG LE Normal motor and sensory nerve conduction velocities in the lower extremities. Normal EMG in the left L4-S1 innervated muscles. Assessment & Plan Assessment & Plan (1) Chronic tension type headache: Code(s): G44.229 - Chronic tension-type headache, not intractable Category: Medical Qualifiers: Intractability: not intractable Qualified Code(s): G44.229 - Chronic tension-type headache, not intractable Plan: Increase amitriptyline 25mg 1 tablet at bedtime x1 week then 2 tablets at bedtime. (2) Migraine: Code(s): G43.909 - Migraine, unspecified, not intractable, without status migrainosus Category: Medical Qualifiers: Intractability: not intractable Migraine type: unspecified Status migrainosus presence: without status migrainosus Qualified Code(s): G43.909 - Migraine, unspecified, not intractable, without status migrainosus Plan: Continue topiramate 50mg 1 tablet at bedtime. (3) Insomnia: Code(s): G47.00 - Insomnia, unspecified Category: Medical Qualifiers: Insomnia type: unspecified Qualified Code(s): G47.00 - Insomnia, unspecified Plan: Amitriptyline may also help with sleep Medications: New amitriptyline 25 mg orally 1 tab at bedtime x1 week then 2 tabs at bedtime; 60 tabs 2RF 30 days Discontinued amitriptyline Discontinued Reason: Doctor's Order 20 mg (2 x 10 mg) PO BEDTIME 90 days 180 tabs 1RF Coding Level of Care Code Est Pt Level 4 (40406) Diagnoses Chronic tension-type headache, not intractable G44.229 Intractability: not intractable Migraine without status migrainosus, not intractable, unspecified migraine type G43.909 Intractability: not intractable Migraine type: unspecified Status migrainosus presence: without status migrainosus Insomnia, unspecified type G47.00 Insomnia type: unspecified
--- OUTSIDE RECORDS SUMMARY | 2024-12-23 17:20 | XMS_ITS | Patient Health Record ---
Author Organization [facility] Address [address] [place] [id number] Care Team Providers Care Rod Filler Name Role Phone Eliecer CARRANZA, Strawberry Primary Care Provider Iban Hdz Unavailable [phone] Allergies Allergen (clinical drug ingredient) Drug/Non Drug Allergy documented on EMR Reaction Allergy Type Onset Date Status Sulfa Unknown Drug Allergy Active Reason For Referral No Information Medications Medication SIG (Take, Route, Frequency, Duration) Notes Start Date End Date Status Omeprazole 20 MG 1 capsule Orally Onc e a day Active Multivitamin Active Citalopram Hydrobromide 10 MG 1 tablet Orally Once a day Active Lisinopril 10 MG 1 Orally qd A ctive Levothyroxine Sodium 50 MCG 1 capsule Or ally Once a day Active Simvastatin 5 MG 1 tablet in the even ing Orally Once a day Active Aspirin 81 MG 1 tablet Orally Once a day Active Fish Oil Active Fluticasone Propionate 50 MCG/ACT 1 spray in each nostril Nasally Once a day Active Problems Problem Type SNOMED Code ICD Code Onset Dates Problem Status W/U Status Risk Notes Problem [id number] Encounter for screening for malignant neoplasm of colon (Z12.11) Active confirmed Problem 895717742 History of adenomatous polyp of colon (Z86.010) Active confirmed Problem Screening for malignant neoplasm of rectum (038757064) Encounter for screening for malignant neoplasm of rectum (Z12.12) Active confirmed Problem 249755051 Gastroesophageal reflux disease without esophagitis (K21.9) Active confirmed Problem 762345285 Preprocedural examination (Z01.818) Active confirmed Problem 318097791 Long-term use of aspirin therapy (Z79.82) Active confirmed Plan Of Treatment Future Test Test Name Order Date COLONOSCOPY 07/17/2016 Insurance Providers Payer Name Payer Address Payer Phone Subscriber Number Group Number Insured Name Patient Relationship to Insured Coverage Start Date Coverage End Date [employer] [address] [place] [address] [id number] GABRIEL NDIAYE Self - patient is the insured Medical (General) History Medical History History ICD Code 2-4-2007 Screening colonosco py--2 small tubular adenomas, diverticulosis, internal hemorrhoids GERD--EGD in 05/2007--small HH--no esopha gitis, no Ko's Hyptertension Denies NV,DM,CVA,Lung disease,renal dise ase Hypothyroidism Anxiety Hyperlipidemia Surgical History Surgery Date(Month/Year) Breast lumpectomy-benign Cataracts
== END 2024-12-23 15:54 | disposition home or self-care (01) ==
LOC: HO.HSM 15:12
PROVIDERS: PCP Internal Medicine; Visit Provider Registered Nurse
DX: G44.229 Chronic tension-type headache, not intractable (principal); G43.909 Migraine, unspecified, not intractable, without status migrainosus; G47.00 Insomnia, unspecified
CPT/HCPCS: 99214

== ENCOUNTER → 2024-12-23 15:11 | Outpatient (BNVA) | payer MEDICARE, OTHER, SELFPAY | PROVIDERS: PCP Internal Medicine; Visit Provider Registered Nurse | DX: G44.229 Chronic tension-type headache, not intractable (principal); G43.909 Migraine, unspecified, not intractable, without status migrainosus; G47.00 Insomnia, unspecified; Z79.899 Other long term (current) drug therapy | CPT/HCPCS: 99212 ==

== ENCOUNTER 2025-02-11 07:15 | Outpatient (REF) | payer MEDICARE, OTHER, SELFPAY ==
[2025-02-11 07:25] LABS: MANUAL DIFF FLAG NO
[2025-02-11 07:39] LABS: Hematocrit 43.6 % (37.0-47.0); Hemoglobin 14.0 g/dl (12.0-16.0); Imm Gran Abs Auto 0.02 X10*3/uL (0.00-0.03); Imm Gran Pct Auto 0.4 % (0.0-0.4); Lymphocytes Absolute Auto 2.0 X10*3/uL (1.2-4.9); Mean Corpuscular HGB Conc 32.1 g/dl (31.0-35.0); Mean Corpuscular Hemoglobin 29.4 pg (27.0-33.0); Mean Corpuscular Volume 91.4 fL (80.0-98.0); NRBC Abs Auto 0.000 X10*3/uL (0.0-0.012); NRBC Pct Auto 0.0 /100WBC (0.0-0.2); Platelet Count 200 X10*3/uL (160-400); Red Blood Count 4.77 X10*6/uL (4.20-5.50); White Blood Count 5.7 X10*3/uL (4.8-10.8)
[2025-02-11 08:02] LABS: Appearance Urine Clear; Glucose Urine UA Negative (Negative); PH 7.0 (5.0-9.0); Specific Gravity - Urine 1.020 (1.005-1.025); UMIC TRIGGER UACC YES
[2025-02-11 08:15] LABS: Alanine Aminotransferase 27 U/L (0-31); Albumin Level 4.3 g/dL (3.5-5.0); Alkaline Phosphatase 58 U/L (39-117); Anion Gap 13 (12-20); Aspartate Amino Transferase 30 U/L (5-31); Blood Urea Nitrogen 24 mg/dL (9-16); Calcium 8.8 mg/dL (8.4-10.2); Carbon Dioxide 24 mmol/L (22-29); Chloride 111 mmol/L (96-108); Cholesterol 194 mg/dL (<200); Estimated Glomerular Filt Rate 54; HDL Cholesterol 54 mg/dL (>40); Potassium 4.0 mmol/L (3.3-5.1); Sodium 144 mmol/L (135-145); Total Protein 7.1 g/dL (6.5-8.0); Triglycerides 125 mg/dL (<150)
[2025-02-11 08:31] LABS: UACC Culture Trigger YES
[2025-02-11 08:35] LABS: Free T4 (Free Thyroxine) 0.88 ng/dL (0.71-1.85); Thyroid Stimulating Hormone 6.42 uIU/mL (0.32-4.0)
== END 2025-02-11 07:16 | disposition home or self-care (01) ==
LOC: HO.LAB 07:15
PROVIDERS: PCP Internal Medicine; Visit Provider Internal Medicine
DX: E78.00 Pure hypercholesterolemia, unspecified (principal); D64.9 Anemia, unspecified; E03.9 Hypothyroidism, unspecified; E55.9 Vitamin D deficiency, unspecified; R73.01 Impaired fasting glucose; R30.0 Dysuria
CPT/HCPCS: 36415; 80053; 80061; 81001; 81003; 82306; 83036; 84439; 84443; 85025; 87086

== ENCOUNTER 2025-02-12 13:13 | Outpatient (AMB) | payer MEDICARE, OTHER, SELFPAY ==
[2025-02-12 13:26] VITALS: BP 120/78; PULSE 81; O2SAT 95; BMI 32.0
--- NOTE | 2025-02-12 13:26 | MHC.PC.OV ---
Vital Signs 02/12/25 13:26 Height 5 ft 6 in Weight 198 lb BMI 32.0 BP 120/78 Blood Pressure Location Lt brachial Position Sitting Pulse 81 Pulse Source Pulse Oximeter Pulse Oximetry (%) 95 Oxygen Delivery Method Room Air Intake Visit Reasons: 6mth f/u Manager Route Required: No Accompanied by: Self / Same As Patient Allergies bupropion (From Wellbutrin) Allergy (Mild, Verified 02/12/25 13:48) Stomach Upset peanut Allergy (Mild, Verified 02/12/25 13:48) Nasal congestion Sulfa (Sulfonamide Antibiotics) (SULFA(SULFONAMIDE ANTIBIOTICS)) Allergy (Unknown, Verified 02/12/25 13:48) PETICHIA, petecchiae Dairy Allergy (Mild, Uncoded 02/12/25 13:48) Abdominal Pain mushroom , wine Allergy (Unknown, Uncoded 02/12/25 13:48) Unknown Medication List - Last Reconciled 02/12/25 by Nehemias Gonzáles MD amitriptyline 20 mg (2 x 10 mg) PO BEDTIME 90 days ljkamnlzqv-hvsrwrmwrhgpv-djjn 50-325-40 mg 1 tab PO Q4-6H PRN 30 days citalopram 10 mg PO DAILY fluticasone propionate 50 mcg/actuation 1 spray intranasal DAILY ibuprofen 600 mg PO TID PRN levothyroxine 50 mcg PO DAILY lisinopril 10 mg PO DAILY loratadine (Claritin) 10 mg PO DAILY omeprazole 20 mg PO DAILY 90 days simvastatin 5 mg PO BEDTIME topiramate 50 mg PO BEDTIME 90 days Tobacco use date assessed: 02/12/25 Fall risk assessment: 2 + Falls in past year Last assessed Fall Risk: 02/12/25 Dental Screening Dental Screen Date: 02/12/25 Did you have a dental visit in the last 12 months?: Yes Did you have a dental problem in the last 6 months where you did not have access to dental care?: No Was dental information given to patient?: Patient has dentist HPI 6mth f/u HPI Details Patient comes in today for her follow up visit States that she has been feeling fatigued lately as she is not sleeping well at night She does not feel that her Citalopram is helping her too much and would like to try switching back to Bupropion XL She denies any headaches or dizziness Denies any chest pains, no increased SOB No nausea/vomiting, no abdominal pain No change in bowel habits noted Adds that she's had some persistent rash / skin lesions over her sacral area and buttocks for a while now She has tried applying some Gentamicin ointment over the lesions for a couple of weeks with no significant improvement States that she has scheduled a dermatology appointment in a couple of weeks and is concerned that she may have a herpes infection as she's had a few similar lesions in her vaginal area recently She had her follow up labs done yesterday - to discuss her results [facility] Medical History Insomnia Basal cell carcinoma of left side of nose Headache Obesity (BMI 30-39.9) Depression Anxiety GERD without esophagitis Allergic rhinitis Impaired fasting glucose Migraine Acquired hypothyroidism Benign essential hypertension Pure hypercholesterolemia Surgical History History of surgery History of eye surgery Hx of mastoidectomy History of cataract surgery History of carpal tunnel release History of open reduction and internal fixation (ORIF) procedure Family History Father CVD (cardiovascular disease) Mother Esophageal cancer Daughter In good health Social History Housing: House Alcohol intake: never Patient Tobacco Use Status: Former Tobacco user e-Cigarette/Vaping Use: Never Used Second Hand Smoke Exposure: Yes service: No Current occupational status: retired Cognitive needs: No Hearing needs: Yes Vision needs: Yes Questionnaire PHQ-9 Over the last 2 weeks, how often have you been bothered by any of the following problems? 1. Little interest or pleasure in doing things: not at all 2. Feeling down, depressed, or hopeless: not at all 3. Trouble falling or staying asleep, or sleeping too much: not at all 4. Feeling tired or having little energy: not at all 5. Poor appetite or overeating: not at all 6. Feeling bad about yourself - or that you are a failure or have let yourself or your family down: not at all 7. Trouble concentrating on things, such as reading the newspaper or watching television: not at all 8. Moving or speaking so slowly that other people could have noticed. Or the opposite - being so fidgety or restless that you have been moving around a lot more than usual: not at all 9. Thoughts that you would be better off or of hurting yourself in some way: not at all Total score: 0 Depression Screening Interpretation: Negative Depression Screening Done: Yes 05557 - PHQ-9 Billing: Yes Source: Developed by Drs. Iban Cui, Tere Dorsey, Monster Morrison and colleagues, with an educational bud from [employer]. Thrive Questionnaire Date Thrive assessed: 08/12/24 AUDIT C Alcohol Use Questionnaire (AUDIT-C) 1. How often do you have a drink containing alcohol?: Never 3. How often do you have six or more drinks on one occasion?: Never Total Score: 0 Score Reviewed/Action Taken: Yes MEHRAN-7 AMB Questionnaire MEHRAN-7 Date MEHRAN - 7 assessed: 08/12/24 Source: Developed by Drs. Iban Cui, Tere Dorsey, Monster Morrison and colleagues, with an educational bud from [employer]. Review of Systems Const Denies chills, Reports difficulty sleeping, Reports fatigue, Denies fever(s) and Denies headache(s) ENT Denies dysphagia, Denies dizziness, Denies otalgia, Denies headache(s), Denies neck pain, Denies odynophagia and Denies sore throat Card Denies chest pain, Denies palpitations and Denies dyspnea Resp Denies chest congestion, Denies cough and Denies dyspnea GI Denies abdominal pain, Denies constipation, Denies dysphagia, Denies heartburn, Denies diarrhea, Denies nausea, Denies odynophagia and Denies vomiting Denies difficulty voiding, Denies nocturia, Denies dysuria and Denies urinary urgency Musc Denies back pain, Reports arthralgias (left knee and left leg) and Denies neck pain Skin/Breast Reports rash (persistent over the sacral area and buttocks - see HPI for details) Neuro Denies dizziness and Denies headache(s) Psych Reports anxiety Endo Reports fatigue and Denies palpitations Physical exam (Primary Care) Vital Signs: Last Vital Signs Pulse 81 02/12/25 13:26 BP 120/78 02/12/25 13:26 Pulse Ox 95 02/12/25 13:26 Oxygen Delivery Method Room Air 02/12/25 13:26 BMI result Body Mass Index 32.0 Tobacco/Smoking Status: Tobacco use Status Tobacco use date assessed 02/12/25 02/12/25 13:34 Patient Tobacco Use Status Former Tobacco user 02/12/25 13:34 e-Cigarette/Vaping Use Never Used 02/12/25 13:34 PHQ-9: PHQ-9 Score PHQ-9: Total score 0 02/12/25 13:34 Depression Screening Interpretation: Negative Thrive Assessment: Date of Thrive Assessment Date Thrive assessed 08/12/24 02/12/25 13:34 Const General: no acute distress and alert HENMT Ears: TM's normal bilaterally and EAC's normal Throat: Yes posterior oropharynx normal and Yes tonsils normal (no TP congestion noted) Neck Neck: Yes supple and No lymphadenopathy Thyroid: Thyroid normal Resp Auscultation: clear to auscultation bilaterally, no rales and no wheezes Cardio Rate: regular rate Rhythm: regular rhythm Heart sounds: no murmurs GI Palpation (GI): Soft to palpation and nontender Auscultation: normal bowel sounds General: Yes no CVA tenderness Back/Spine/Pelvis Back: no CVA tenderness Thoracic/Lumbar Spine: No lumbar spinal tenderness Skin Other: (+) scattered multiple papulovesicular lesions over the sacral area and a feew similar lesions over the buttocks - lesions appear to be drying up at present with no active discharge or drainage Extrem Other: (+) prominent varicosities on both lower legs, worse on the left leg General: Yes no clubbing, cyanosis or edema Left lower extremity: knee Details: tenderness Location: of the infrapatellar area; no swelling Results Reviewed Results Reviewed: Laboratory Tests 02/11/25 02/11/25 07:22 07:23 WBC 5.7 Hgb 14.0 Hct 43.6 Plt Count 200 Sodium 144 Potassium 4.0 Creatinine 1.01 Estimated GFR 54 Fasting Glucose 104 H Hemoglobin A1c % 5.7 Calcium 8.8 AST 30 ALT 27 Triglycerides 125 Cholesterol 194 LDL Cholesterol, Calc 115 H HDL Cholesterol 54 25-OH Vitamin D Total 41.3 TSH 6.42 H Free T4 0.88 Ur Specific [place] 1.020 Urine Protein Negative Urine Glucose (UA) Negative Urine Blood Negative Urine Nitrite Negative Ur Leukocyte Esterase Small (1+) H Coding Level of Care Code Est Pt Level 4 (66150) Complex EM visit Add On G2211 Diagnoses Benign essential hypertension I10 Pure hypercholesterolemia E78.00 Acquired hypothyroidism E03.9 Impaired fasting glucose R73.01 Migraine without status migrainosus, not intractable, unspecified migraine type G43.909 Migraine type: unspecified Status migrainosus presence: without status migrainosus Intractability: not intractable 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 Allergic rhinitis, unspecified seasonality, unspecified trigger J30.9 Allergic rhinitis trigger: unspecified Allergic rhinitis seasonality: unspecified GERD without esophagitis K21.9 Varicose veins of bilateral lower extremities with pain I83.813 Papulovesicular rash R21 Insomnia, unspecified type G47.00 Insomnia type: unspecified Anxiety F41.9 Episode of recurrent major depressive disorder, unspecified depression episode severity F33.9 Depression Type: major depressive disorder Major depression recurrence: recurrent Active/Remission status: currently active Major depression episode severity: unspecified Obesity (BMI 30-39.9) E66.9 Additional Codes PHQ-9 - 55675 - PHQ-9 Billing: Yes ([id number]) Assessment & Plan Assessment & Plan (1) Benign essential hypertension: Code(s): I10 - Essential (primary) hypertension Category: Medical Plan: Reinforced low sodium diet - goal is systolic BP of at least 130 to 140 mm or less Continue Lisinopril 10 mg QD Patient is reminded to monitor her blood pressure regularly (2) Pure hypercholesterolemia: Code(s): E78.00 - Pure hypercholesterolemia, unspecified Category: Medical Plan: Results of her labs done yesterday reviewed and discussed with patient Reinforced low cholesterol diet Continue Simvastatin 5 mg Q HS Will recheck her labs and fasting lipids in 4 months for follow up (3) Acquired hypothyroidism: Code(s): E03.9 - Hypothyroidism, unspecified Category: Medical Plan: Her TSH has increased from previous and free T4 has dropped off slightly and is now at borderline low Will increase her Levothyroxine from 50 mcg to 75 mcg QD Will recheck her TFTs in 4 months for follow up and continue to monitor her TFTs regularly (4) Impaired fasting glucose: Code(s): R73.01 - Impaired fasting glucose Category: Medical Plan: Her FBS was again slightly elevated at 104 mg/dl; her HgbA1c was still normal at 5.7% on her recent labs but this has increased from her previous HgbA1c levels and she is now closer to the cut off for borderline diabetes Reinforced low calorie/low carb diet - states that she will try to work on this as she prefers not to take any Rx for her blood sugar (5) Migraine: Code(s): G43.909 - Migraine, unspecified, not intractable, without status migrainosus Category: Medical Qualifiers: Migraine type: unspecified Status migrainosus presence: without status migrainosus Intractability: not intractable Qualified Code(s): G43.909 - Migraine, unspecified, not intractable, without status migrainosus Plan: Patient was diagnosed with migraine by neurology about 3 years ago MRI of the brain done a couple of years ago came out normal although it did show incidentally a left maxillary sinus cyst and patient has been seeing ENT for this States that her headaches have improved a lot since she was started on prophylactic Tx with Topiramate 50 mg Q HS and Amitriptyline 20 mg Q HS Reinforced avoidance of all potential migraine triggers Continue Fioricet PRN for symptomatic relief Follow up with neurology as scheduled (6) Maxillary sinus cyst: Code(s): J34.1 - Cyst and mucocele of nose and nasal sinus Category: Medical Plan: This was seen incidentally on a head CT done a couple of years ago Patient was seen by ENT for evaluation and was advised no intervention at this time and recommended to just continue observation Follow up with ENT as scheduled (7) Allergic rhinitis: Code(s): J30.9 - Allergic rhinitis, unspecified Category: Medical Qualifiers: Allergic rhinitis trigger: unspecified Allergic rhinitis seasonality: unspecified Qualified Code(s): J30.9 - Allergic rhinitis, unspecified Plan: Continue OTC Loratadine 10 mg QD PRN and Fluticasone nasal spray 50 mcg 1 spray into each nostril QD PRN (8) GERD without esophagitis: Code(s): K21.9 - Gastro-esophageal reflux disease without esophagitis Category: Medical Plan: Dietary restrictions reinforced Continue Omeprazole 20 mg QD PRN (9) Varicose veins of bilateral lower extremities with pain: Code(s): I83.813 - Varicose veins of bilateral lower extremities with pain Category: Medical Plan: Follow up with vascular surgery as scheduled (10) Papulovesicular rash: Code(s): R21 - Rash and other nonspecific skin eruption Category: Medical Plan: This is mostly over the sacral area and buttocks and per patient, a few lesions as well perineally/vaginally and she is concerned about the possibility of genital herpes Will start her empirically on Valacyclovir 500 mg BID x 10 days to cover for any potential genital herpes - patient is advised that if her rash/symptoms clear up with Valacyclovir, then she likely has genital herpes and may need prophylactic Tx of her rash keeps recurring (11) Insomnia: Code(s): G47.00 - Insomnia, unspecified Category: Medical Qualifiers: Insomnia type: unspecified Qualified Code(s): G47.00 - Insomnia, unspecified Plan: Sleep hygiene reinforced Patient has indicated her reluctance to take any prescription Rx to help her sleep in the past and continues to do so Have advised her that she can at least try some OTC Melatonin Q HS PRN to help her get some sleep at night (12) Anxiety: Code(s): F41.9 - Anxiety disorder, unspecified Category: Medical Plan: Patient states that she feels that her Citalopram is no longer helping as much with her anxiety lately and is requesting to be tried back on Bupropion but she wants to try taking it at night instead (13) Depression: Code(s): F32.9 - Major depressive disorder, single episode, unspecified Category: Medical Qualifiers: Depression Type: major depressive disorder Major depression recurrence: recurrent Active/Remission status: currently active Major depression episode severity: unspecified Qualified Code(s): F33.9 - Major depressive disorder, recurrent, unspecified Plan: Per request, will try switching her back from Citalopram 20 mg QD (will D/C) to Bupropion XL 150 mg QD (14) Obesity (BMI 30-39.9): Code(s): E66.9 - Obesity, unspecified Category: Medical Plan: Reinforced diet/exercise as tolerated/lose weight Plan Follow up in 4 months Orders: Orders Complete Blood Count Auto Diff 4 Months D64.9 - Anemia, unspecified Lipid Panel 4 Months E78.00 - Pure hypercholesterolemia, unspecified UA CC w/rflx Micro + Cult 4 Months R30.0 - Dysuria Vitamin D 25-OH Total 4 Months E55.9 - Vitamin D deficiency, unspecified Comprehensive [place]. Panel Fast 4 Months E78.00 - Pure hypercholesterolemia, unspecified Free T4 (Free Thyroxine) 4 Months E03.9 - Hypothyroidism, unspecified Thyroid Stimulating Hormone 4 Months E03.9 - Hypothyroidism, unspecified Hemoglobin A1c 4 Months R73.01 - Impaired fasting glucose Medications: New bupropion HCl XL (Wellbutrin XL) 150 mg PO QAM 30 tabs 3RF 30 days valacyclovir 500 mg PO BID 20 tabs 0RF 10 days Changed From levothyroxine 50 mcg PO DAILY 90 tabs 3RF E03.9 - Hypothyroidism, unspecified To levothyroxine 75 mcg PO DAILY 90 tabs 1RF 90 days E03.9 - Hypothyroidism, unspecified Discontinued citalopram Discontinued Reason: Doctor's Order 10 mg PO DAILY 90 tabs 3RF F33.9 - Major depressive disorder, recurrent, unspecified
--- OUTSIDE RECORDS SUMMARY | 2025-02-12 15:14 | XMS_ITS | Patient Health Record ---
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 Name Role Phone Eliecer CARRANZA, [place] Primary Care Provider Iban Hdz Unavailable [phone] Allergies Allergen (clinical drug ingredient) Drug/Non Drug [...] Problem Status W/U Status Risk Notes Problem Screening for malignant neoplasm of colon (721766515) Encounter for screening for malignant neoplasm of colon (Z12.11) Active confirmed Problem History of adenomatous polyp of colon (256756542) History of adenomatous polyp of colon (Z86.010) Active confirmed Problem Screening for malignant neoplasm of rectum (614566162) Encounter for screening for malignant neoplasm of rectum (Z12.12) Active confirmed Problem Gastroesophageal reflux disease without esophagitis (175902903) Gastroesophageal reflux disease without esophagitis (K21.9) Active confirmed Problem Preprocedural examination (246627305990045) Preprocedural examination (Z01.818) Active confirmed Problem Long-term current use of antiplatelet drug ([id number]) Long-term use of aspirin therapy (Z79.82) Active confirmed Plan Of Treatment Future Test Test Name Order Date COLONOSCOPY 07/17/2016 Insurance Providers Payer Name Payer Address Payer Phone Subscriber Number Group Number Insured Name Patient Relationship to Insured Coverage Start Date Coverage End Date [facility] [address] [place] [address] [id number] GABRIEL NDIAYE Self - patient is the insured Medical (General) History Medical History History ICD Code 2--2007 Screening colonosco py--2 small tubular adenomas, diverticulosis, internal hemorrhoids GERD--EGD in 05/2007--small HH--no esopha gitis, no Ko's Hyptertension Denies MS,DM,CVA,Lung disease,renal dise ase Hypothyroidism Anxiety Hyperlipidemia Surgical History Surgery Date(Month/Year) Breast lumpectomy-benign Cataracts
== END 2025-02-12 14:05 | disposition home or self-care (01) ==
LOC: HO.HMCH 13:14
PROVIDERS: PCP Internal Medicine; Visit Provider Internal Medicine
DX: I10 Essential (primary) hypertension (principal); E78.00 Pure hypercholesterolemia, unspecified; E03.9 Hypothyroidism, unspecified; R73.01 Impaired fasting glucose; G43.909 Migraine, unspecified, not intractable, without status migrainosus; J34.1 Cyst and mucocele of nose and nasal sinus; J30.9 Allergic rhinitis, unspecified; K21.9 Gastro-esophageal reflux disease without esophagitis; I83.813 Varicose veins of bilateral lower extremities with pain; R21 Rash and other nonspecific skin eruption; G47.00 Insomnia, unspecified; F41.9 Anxiety disorder, unspecified

== ENCOUNTER → 2025-02-12 13:13 | Outpatient (BNVA) | payer MEDICARE, OTHER, SELFPAY | PROVIDERS: PCP Internal Medicine; Visit Provider Internal Medicine | DX: I10 Essential (primary) hypertension (principal); E78.00 Pure hypercholesterolemia, unspecified; E03.9 Hypothyroidism, unspecified; R73.01 Impaired fasting glucose; G43.909 Migraine, unspecified, not intractable, without status migrainosus; J34.1 Cyst and mucocele of nose and nasal sinus; J30.9 Allergic rhinitis, unspecified; K21.9 Gastro-esophageal reflux disease without esophagitis; R21 Rash and other nonspecific skin eruption; G47.00 Insomnia, unspecified; I83.813 Varicose veins of bilateral lower extremities with pain; F41.9 Anxiety disorder, unspecified; F33.9 Major depressive disorder, recurrent, unspecified; E66.9 Obesity, unspecified; Z68.32 Body mass index [BMI] 32.0-32.9, adult; Z71.3 Dietary counseling and surveillance | CPT/HCPCS: 96127; 99212 ==

== ENCOUNTER 2025-02-22 15:36 | Outpatient (AMB) | payer MEDICARE, OTHER, SELFPAY ==
--- NOTE | 2025-02-22 15:50 | A.OFFVIS_ITS ---
Intake Visit Reasons: GARRISON, insomnia Allergies bupropion (From Wellbutrin) Allergy (Mild, Verified 02/22/25 15:53) Stomach Upset peanut Allergy (Mild, Verified 02/22/25 15:53) Nasal congestion Sulfa (Sulfonamide Antibiotics) (SULFA(SULFONAMIDE ANTIBIOTICS)) Allergy (Unknown, Verified 02/22/25 15:53) PETICHIA, petecchiae Dairy Allergy (Mild, Uncoded 02/22/25 15:53) Abdominal Pain mushroom , wine Allergy (Unknown, Uncoded 02/22/25 15:53) Unknown Medication List - Last Reconciled 02/22/25 by Anastasia Obrien, ROGELIO amitriptyline 20 mg (2 x 10 mg) PO BEDTIME 90 days bupropion HCl XL (Wellbutrin XL) 150 mg PO QAM 30 days ahkwzukqeq-kafnujrlvlqai-sgep 50-325-40 mg 1 tab PO Q4-6H PRN 30 days fluticasone propionate 50 mcg/actuation 1 spray intranasal DAILY ibuprofen 600 mg PO TID PRN levothyroxine 75 mcg PO DAILY 90 days lisinopril 10 mg PO DAILY loratadine (Claritin) 10 mg PO DAILY omeprazole 20 mg PO DAILY 90 days simvastatin 5 mg PO BEDTIME topiramate 50 mg PO BEDTIME 90 days valacyclovir 500 mg PO BID 10 days HPI Comments Details: She tried increased dose of amitriptyline, but was having more headaches and felt sweaty, and dose was reduced back to 20mg at bedtime. Headaches were okay lately. Sleep was still not so good, but she was working on establishing a nighttime routine. Mood was better since switching to bupropion XL from citalopram. She was under some stress related to health of her . Migraine triggers included dairy, nuts, and wine, and less often triggered by weather changes. Pins and needles sensation in feet is better after starting B complex. Some left leg achiness that comes and goes after falling doing yardwork in 01/2024. [facility] Medical History Insomnia Basal cell carcinoma of left side of nose Headache Obesity (BMI 30-39.9) Depression Anxiety GERD without esophagitis Allergic rhinitis Impaired fasting glucose Migraine Acquired hypothyroidism Benign essential hypertension Pure hypercholesterolemia Surgical History History of surgery History of eye surgery Hx of mastoidectomy History of cataract surgery History of carpal tunnel release History of open reduction and internal fixation (ORIF) procedure Family History Father CVD (cardiovascular disease) Mother Esophageal cancer Daughter In good health Social History Housing: House Alcohol intake: never Patient Tobacco Use Status: Former Tobacco user e-Cigarette/Vaping Use: Never Used Second Hand Smoke Exposure: Yes service: No Current occupational status: retired Cognitive needs: No Hearing needs: Yes Vision needs: Yes Review of Systems Const Denies chills, Denies daytime sleepiness, Reports difficulty sleeping, Denies fatigue, Denies fever(s), Denies frequent falls, Reports headache(s), Denies increased appetite, Denies poor appetite, Denies snoring, Denies weakness, Denie s weight gain and Denies weight loss Eyes Denies loss of vision ENT Denies vertigo, Denies dizziness, Reports headache(s) and Denies neck pain Card Denies chest pain at rest, Denies chest pain with activity, Denies syncope, Denies leg edema, Denies palpitations, Denies dyspnea and Denies dyspnea on exertion Resp Denies cough, Denies dyspnea, Denies dyspnea on exertion and Denies snoring GI Denies abdominal pain, Denies constipation, Denies heartburn, Denies diarrhea and Denies nausea Denies urinary frequency, Denies urinary incontinence and Denies urinary urgency Musc Denies abnormal gait, Denies back pain, Denies myalgias, Denies arthralgias, Denies neck pain, Denies numbness and Denies tingling Neuro Denies abnormal gait, Denies vertigo, Denies dizziness, Denies syncope, Denies frequent falls, Reports headache(s), Denies lack of coordination, Denies loss of vision, Denies memory loss, Denies numbness, Denies Other visual disturbances, Denies restless legs, Denies seizure-like activity, Denies tingling, Denies paresthesias, Denies tremor(s) and Denies weakness Psych Denies anxiety, Reports depression, Denies auditory hallucinations, Denies memory loss and Denies visual hallucinations Endo Denies fatigue and Denies palpitations Physical Exam Const Other: General Appearance:? normal, in no acute distress. Heart:? S1, S2 normal, no murmurs. Lungs:? clear anteriorly and posteriorly. Musculoskeletal:? normal. Extremities:? no edema. Psych:? alert, oriented, cognitive function intact, cooperative with exam. Neuro Other: Mental Status:?Normal attention, orientation, memory and affect.? Cranial Nerves:?Pupils are equal, round and reactive to light. External occular muscles are intact. Visual vicente are full. Face is symmetrical. Facial sensations are normal. Tongue is midline. Palate elevates symmetrically. Shoulder shrugging is normal. Hearing to bedside conversation is normal. Sensory Exam:?....? Coordination:?No ataxia,?no titubation.? Gait Exam: Within normal limits. Extrapyramidal System:?No tremor, rigidity with normal facial expressions.? Pronator Drift:?Not present.? Involuntary Movements:?No tremors seen.? Speech:?Normal.? Results Reviewed Results Reviewed: MRI 11/30/20 showed fluid filled in left maxillary sinus and sphenoid sinus and a single non specific left parietal subcortical white matter abnormality. 01/31/22 NCV/EMG LE Normal motor and sensory nerve conduction velocities in the lower extremities. Normal EMG in the left L4-S1 innervated muscles. Assessment & Plan Assessment & Plan (1) Chronic tension type headache: Code(s): G44.229 - Chronic tension-type headache, not intractable Category: Medical Qualifiers: Intractability: not intractable Qualified Code(s): G44.229 - Chronic tension-type headache, not intractable Plan: Continue amitriptyline 10mg 2 tablets at bedtime. (2) Migraine: Code(s): G43.909 - Migraine, unspecified, not intractable, without status migrainosus Category: Medical Qualifiers: Migraine type: unspecified Status migrainosus presence: without status migrainosus Intractability: not intractable Qualified Code(s): G43.909 - Migraine, unspecified, not intractable, without status migrainosus Plan: Continue topiramate 50mg 1 tablet at bedtime. (3) Insomnia: Code(s): G47.00 - Insomnia, unspecified Category: Medical Qualifiers: Insomnia type: unspecified Qualified Code(s): G47.00 - Insomnia, unspecified Plan: Reviewed sleep hygiene. May try OTC melatonin as needed. Plan Meds tried: amitriptyline (unable to tolerate >20mg), topiramate Medications: Refilled amitriptyline 20 mg (2 x 10 mg) PO BEDTIME 180 tabs 1RF 90 days topiramate 50 mg PO BEDTIME 90 tabs 1RF 90 days Coding Level of Care Code Est Pt Level 4 (73990) Diagnoses Chronic tension-type headache, not intractable G44.229 Intractability: not intractable Migraine without status migrainosus, not intractable, unspecified migraine type G43.909 Migraine type: unspecified Status migrainosus presence: without status migrainosus Intractability: not intractable Insomnia, unspecified type G47.00 Insomnia type: unspecified
--- OUTSIDE RECORDS SUMMARY | 2025-02-22 16:49 | XMS_ITS | Patient Health Record ---
Author Organization [facility] Address [address] [place] [id number] Care Team Providers Care Quilt Stuffer Name Role Phone Eliecer CARRANZA, [place] Primary Care Provider Iban Hdz Unavailable [phone] Allergies Allergen (clinical drug ingredient) Drug/Non Drug [...] Problem Screening for malignant neoplasm of colon (184061942) Encounter for screening for malignant neoplasm of colon (Z12.11) Active confirmed Problem History of adenomatous polyp of colon (023153901) History of adenomatous polyp of colon (Z86.010) Active confirmed Problem Screening for malignant neoplasm of rectum (729238744) Encounter for screening for malignant neoplasm of rectum (Z12.12) Active confirmed Problem Gastroesophageal reflux disease without esophagitis (997806752) Gastroesophageal reflux disease without esophagitis (K21.9) Active confirmed Problem Preprocedural examination (449177408028550) Preprocedural examination (Z01.818) Active confirmed Problem Long-term current use of antiplatelet drug (550184628903163) Long-term use of aspirin therapy (Z79.82) Active confirmed Plan Of Treatment Future Test Test Name Order Date COLONOSCOPY 07/17/2016 Insurance Providers Payer Name Payer Address Payer Phone Subscriber Number Group Number Insured Name Patient Relationship to Insured Coverage Start Date Coverage End Date [facility] [address] [place] [phone] [id number] GABRIEL NDIAYE Self - patient is the insured Medical (General) History Medical History History ICD Code 2--2007 Screening colonosco py--2 small tubular adenomas, diverticulosis, internal hemorrhoids GERD--EGD in 05/2007--small HH--no esopha gitis, no Ko's Hyptertension Denies [place],DM,CVA,Lung disease,renal dise ase Hypothyroidism Anxiety Hyperlipidemia Surgical History Surgery Date(Month/Year) Breast lumpectomy-benign Cataracts
== END 2025-02-22 16:08 | disposition home or self-care (01) ==
LOC: HO.HSM 15:36
PROVIDERS: PCP Internal Medicine; Visit Provider Registered Nurse
DX: G44.229 Chronic tension-type headache, not intractable (principal); G43.909 Migraine, unspecified, not intractable, without status migrainosus; G47.00 Insomnia, unspecified
CPT/HCPCS: 99214

== ENCOUNTER → 2025-02-22 15:36 | Outpatient (BNVA) | payer MEDICARE, OTHER, SELFPAY | PROVIDERS: PCP Internal Medicine; Visit Provider Registered Nurse | DX: G44.229 Chronic tension-type headache, not intractable (principal); G43.709 Chronic migraine without aura, not intractable, without status migrainosus; G47.00 Insomnia, unspecified | CPT/HCPCS: 99212 ==